=== PATIENT | male | born 1945 | race Caucasian/White ===

== ENCOUNTER 2020-08-10 14:15 | Inpatient (IN) | payer OTHER ==
[2020-08-10] MEDS ORDERED: ACETAMINOPHEN INJECTION 100 ML IVPB ONE (14:24)
[2020-08-10] MEDS ORDERED: RAPID SEQUENCE INTUBATION KIT NR ONE (14:32)
[2020-08-10] MEDS ORDERED: ACETAMINOPHEN 1000 MG/100 ML VIAL (NON FORMULARY) IVPB ONE (14:36)
[2020-08-10] MEDS ORDERED: MIDAZOLAM IN 0.9 % SOD.CHLORID 1 MG/1 ML PLAST..BAG ONE (14:40)
[2020-08-10] MEDS ORDERED: ETOMIDATE 40 MG/20 ML VIAL IVPUSH ONE (14:50)
[2020-08-10] MEDS ORDERED: SUCCINYLCHOLINE CHLORIDE 200 MG/10 ML VIAL IVPUSH ONE (14:50)
[2020-08-10 14:56] LABS: BASO % 0.1 % (0-2.0); HEMATOCRIT 42.5 % (35.4-49); HEMOGLOBIN 13.6 GM/dL (11.7-16.9); LYMPH % 7.3 % (8-40); MCH 30.8 pg (25.7-33.7); MCHC 32.1 g/dl (32.0-35.9); MEAN PLT VOLUME 9.1 fl (7.5-11.1); MONO % 5.2 % (3.8-10.2); NEUT % 87.4 % (42.8-82.8); PLATELET COUNT 271 K/MM3 (134-434); RBC 4.42 M/mm3 (4.00-5.60); RDW 15.3 % (11.9-15.9)
[2020-08-10] MEDS ORDERED: ROCURONIUM BROMIDE 50 MG/5 ML VIAL IV ONE (14:57)
[2020-08-10 15:00] LABS: INR 1.37 (0.83-1.09); PROTHROMBIN TIME (PATIENT) 16.2 SEC (9.7-13.0)
[2020-08-10 15:02] LABS: ACTIVATED PTT 32.3 SECONDS (25.2-36.5)
[2020-08-10] MEDS ORDERED: FENTANYL NS IVPB 500 MCG/100 ML BAG IVPB SCH (15:15)
[2020-08-10] MEDS: NOREPINEPHRINE BITARTRATE 8,000 MCG/500 ML BAG IVPB SCH (15:25)
[2020-08-10 15:26] LABS: ANISOCYTOSIS 0; MACROCYTOSIS 0; PLATELET ESTIMATE NORMAL
[2020-08-10 15:29] LABS: ALBUMIN 3.1 g/dl (3.4-5.0); BILIRUBIN,TOTAL 1.2 mg/dL (0.2-1); BLOOD UREA NITROGEN 27.2 mg/dL (7-18); CALCIUM 8.7 mg/dL (8.5-10.1); CREATININE 4.7 mg/dL (0.55-1.3); POTASSIUM 3.7 mmol/L (3.5-5.1); TOT PROT 6.6 g/dl (6.4-8.2)
[2020-08-10 15:50] LABS: ARTERIAL BLD GAS O2 SATURATION 98.6 mmHg (95-98); ARTERIAL BLOOD GAS BASE EXCESS -11.3 mmol/L (-2-2); ARTERIAL BLOOD GAS PO2 166.9 mmHg (80-100)
[2020-08-10 15:52] LABS: ARTERIAL BLOOD GAS pH 7.149 (7.350-7.450)
[2020-08-10 15:53] LABS: ALLENS TEST POSITIVE
[2020-08-10 15:54] LABS: VENT RATE 16
[2020-08-10] MEDS ORDERED: FENTANYL NS IVPB 500 MCG/100 ML BAG IVPB ONE (15:57)
[2020-08-10] MEDS: FENTANYL IVPB 500 MCG/100 ML BAG IVPB SCH (16:00)
[2020-08-10] MEDS ORDERED: SODIUM CHLORIDE 1,000 ML IV STA ×3 (16:14)
[2020-08-10] MEDS ORDERED: PIPERACILLIN/TAZOB 3.375 GM 3.375 GM in DEXTROSE 5%-WATER - 50 ML IVPB ONE (16:15)
[2020-08-10] MEDS ORDERED: VANCOMYCIN 1,000 MG in DEXTROSE 5%-WATER - 250 ML IVPB ONE (16:15)
[2020-08-10] MEDS ORDERED: PIPERACILLIN/TAZOB 3.375 GM 3.375 GM/50 ML BAG IVPB ONE (16:30)
[2020-08-10] MEDS ORDERED: MIDAZOLAM 100 MG in SODIUM CHLORIDE 100 ML IVPB SCH (16:30)
[2020-08-10] MEDS ORDERED: DEXAMETHASONE SOD PHOSPHATE 10 MG/1 ML VIAL IVPUSH ONE (16:39)
[2020-08-10] MEDS ORDERED: DEXAMETHASONE SOD PHOSPHATE 10 MG/1 ML VIAL ONE (16:45)
[2020-08-10] MEDS: VASOPRESSIN 40 UNITS in SODIUM CHLORIDE 98 ML IVPB SCH (17:33)
[2020-08-10 18:08] LABS: N-TERMINAL BNP 7904.4 pg/ml (5-125)
[2020-08-10] MEDS ORDERED: PT OWN MED DRAWER 7, Y5N ONE (20:06)
[2020-08-10] MEDS: HEPARIN NA (PORCINE) 5,000 UNITS/ML 1ML VIAL SQ SCH (21:39)
[2020-08-10] MEDS: PANTOPRAZOLE SODIUM 40 MG VIAL IVPUSH SCH (21:39)
[2020-08-10] MEDS: CHLORHEXIDINE GLUCONATE 4% CLEANSER FOR DECOLONIZATION TP SCH (21:40)
[2020-08-10] MEDS: PHENYLEPHRINE NS PREMIX 25,000 MCG/250 ML BAG CVP SCH (21:40)
[2020-08-10] MEDS: MUPIROCIN 2% TOPICAL OINTMENT FOR DECOLONIZATION NS SCH (21:42)
[2020-08-10 21:55] LABS: BASO % 0.2 % (0-2.0); HEMATOCRIT 42.7 % (35.4-49); MCH 31.9 pg (25.7-33.7); MCHC 32.8 g/dl (32.0-35.9); MEAN CELL VOLUME 97.3 fl (80-96); MEAN PLT VOLUME 9.6 fl (7.5-11.1); MONO % 4.4 % (3.8-10.2); NEUT % 92.4 % (42.8-82.8); PLATELET COUNT 250 K/MM3 (134-434); RBC 4.39 M/mm3 (4.00-5.60); RDW 15.5 % (11.9-15.9)
[2020-08-10 22:05] LABS: WHITE BLOOD COUNT 34.2 K/mm3 (4.0-10.0)
[2020-08-10 22:14] LABS: ARTERIAL BLD GAS O2 SATURATION 98.5 mmHg (95-98); ARTERIAL BLOOD GAS BASE EXCESS -11.9 mmol/L (-2-2); ARTERIAL BLOOD GAS PO2 151.1 mmHg (80-100)
[2020-08-10 22:19] LABS: VENT MODE A/C; VENT RATE 16
[2020-08-10 22:20] LABS: ARTERIAL BLOOD GAS pH 7.192 (7.350-7.450)
[2020-08-10 22:28] LABS: ALBUMIN 2.9 g/dl (3.4-5.0); BILIRUBIN,TOTAL 1.4 mg/dL (0.2-1); BLOOD UREA NITROGEN 31.6 mg/dL (7-18); CALCIUM 7.9 mg/dL (8.5-10.1); CREATININE 5.1 mg/dL (0.55-1.3); MAGNESIUM 1.4 mg/dL (1.8-2.4); PHOSPHOROUS 5.6 mg/dL (2.5-4.9); POTASSIUM 4.6 mmol/L (3.5-5.1); TOT PROT 6.2 g/dl (6.4-8.2)
[2020-08-11] MEDS ORDERED: PHENYLEPHRINE HCL 10 MG/1 ML SINGLE DOSE VIAL ONE (00:10)
[2020-08-11] MEDS ORDERED: fentaNYL CITRATE 250 MCG/5 ML VIAL ONE (00:10)
[2020-08-11] MEDS ORDERED: VASOPRESSIN 20 UNITS/ML VIAL IV ONE (00:10)
[2020-08-11 00:22] LABS: PLATELET ESTIMATE NORMAL
[2020-08-11] MEDS: MIDAZOLAM IN 0.9 % SOD.CHLORID 100 MG/100 ML PLAST..BAG IVPB SCH ×2 (00:43→23:25)
[2020-08-11] MEDS ORDERED: DEXTROSE 5%-WATER - 50 ML IVPB ONE ×3 (02:28→13:07)
[2020-08-11] MEDS ORDERED: PIPERACILLIN/TAZOBACTAM 2.25 GM VIAL IVPB ONE ×3 (02:28→13:07)
[2020-08-11] MEDS: HYDROCORTISONE SOD SUCCINATE 100 MG/2 ML VIAL IVPB SCH ×3 (02:54→18:05)
[2020-08-11] MEDS: PIPERACILLIN/TAZOB 2.25 GM 2.25 GM in DEXTROSE 5%-WATER - 50 ML IVPB SCH ×5 (02:54→15:05)
[2020-08-11 03:42] LABS: EPI CELLS 18 /uL (0-25.1); HYALINE CASTS 17 /uL (0-3.1); URINE APPEARANCE TURBID; URINE BILIRUBIN 1+ (NEGATIVE); URINE COLOR DK YELLOW; URINE GLUCOSE (UA) NEGATIVE (NEGATIVE); URINE KETONE TRACE (NEGATIVE); URINE LEUK ESTERASE 2+ (NEGATIVE); URINE NITRITE NEGATIVE (NEGATIVE); URINE PROTEIN 3+ (NEGATIVE); URINE RBC 220 /uL (0-23.9); URINE WBC 2622 /uL (0-25.8)
[2020-08-11 04:41] LABS: ALLENS TEST POSITIVE
[2020-08-11 04:42] LABS: VENT MODE A/C; VENT RATE 18
[2020-08-11 04:43] LABS: ARTERIAL BLOOD GAS PO2 119.6 mmHg (80-100)
[2020-08-11 04:52] LABS: URINE BACTERIA 79.3 /uL (0-1359)
[2020-08-11] MEDS: HEPARIN NA (PORCINE) 5,000 UNITS/ML 1ML VIAL SQ SCH ×3 (05:41→21:25)
[2020-08-11 07:38] LABS: BASO % 0.1 % (0-2.0); HEMATOCRIT 40.8 % (35.4-49); HEMOGLOBIN 13.1 GM/dL (11.7-16.9); LYMPH % 3.5 % (8-40); MCH 31.1 pg (25.7-33.7); MEAN CELL VOLUME 97.2 fl (80-96); MEAN PLT VOLUME 9.5 fl (7.5-11.1); MONO % 3.1 % (3.8-10.2); NEUT % 93.3 % (42.8-82.8); PLATELET COUNT 246 K/MM3 (134-434); RDW 15.6 % (11.9-15.9)
[2020-08-11 07:43] LABS: INR 1.74 (0.83-1.09); PROTHROMBIN TIME (PATIENT) 20.7 SEC (9.7-13.0)
[2020-08-11 07:45] LABS: ACTIVATED PTT 35.4 SECONDS (25.2-36.5)
[2020-08-11 07:58] LABS: ALBUMIN 2.6 g/dl (3.4-5.0); BLOOD UREA NITROGEN 39.6 mg/dL (7-18); CALCIUM 7.2 mg/dL (8.5-10.1); MAGNESIUM 1.5 mg/dL (1.8-2.4)
[2020-08-11 08:00] LABS: BILIRUBIN,TOTAL 1.1 mg/dL (0.2-1); CREATININE 5.5 mg/dL (0.55-1.3); PHOSPHOROUS 7.6 mg/dL (2.5-4.9)
[2020-08-11] MEDS: CHLORHEXIDINE GLUCONATE 0.12% 15ML CUP MM SCH ×2 (09:09→21:27)
[2020-08-11] MEDS: PANTOPRAZOLE SODIUM 40 MG VIAL IVPUSH SCH ×2 (09:09→12:06)
[2020-08-11] MEDS ORDERED: PT OWN MED DRAWER 7, Y5N ONE (10:00)
[2020-08-11] MEDS ORDERED: MAGNESIUM SULF 50% (8.12 MEQ/2 ML-1 GM VIAL) ONE (10:16)
[2020-08-11 10:59] LABS: ANISOCYTOSIS 1+; MACROCYTOSIS 0; PLATELET ESTIMATE NORMAL
[2020-08-11] MEDS: ACETAMINOPHEN 1000 MG/100 ML VIAL (NON FORMULARY) IVPB PRN ×2 (11:36→23:19)
[2020-08-11] MEDS: MUPIROCIN 2% TOPICAL OINTMENT FOR DECOLONIZATION NS SCH ×2 (11:45→21:28)
[2020-08-11] MEDS ORDERED: SODIUM BICARBONATE 8.4% 50 MEQ/50 ML DISP.SYRIN IVPUSH ONE (12:09)
[2020-08-11] MEDS ORDERED: SODIUM CHLORIDE 0.45% 1,000 ML with SODIUM BICARBONATE 8.4% - 150 MEQ IV SCH (12:15)
[2020-08-11] MEDS ORDERED: MAGNESIUM SULF 50% (8.12 MEQ/2 ML-1 GM VIAL) IVPB ONE (13:31)
[2020-08-11] MEDS ORDERED: NOREPINEPHRINE BITARTRATE 4 MG/4 ML ML IV ONE (15:21)
[2020-08-11] MEDS: NOREPINEPHRINE BITARTRATE 8,000 MCG/500 ML BAG IVPB SCH (15:35)
[2020-08-11] MEDS: FENTANYL IVPB 500 MCG/100 ML BAG IVPB SCH (15:35)
[2020-08-11] MEDS: SODIUM BICARBONATE 8.4% - 75 MEQ in SODIUM CHLORIDE 0.45% 1,000 ML IV SCH (15:56)
[2020-08-11 16:06] LABS: WHITE BLOOD COUNT 33.4 K/mm3 (4.0-10.0)
[2020-08-11] MEDS ORDERED: MEROPENEM 1 GM VIAL (RESTRICTED TO ID) IVPB ONE (16:19)
[2020-08-11] MEDS ORDERED: DEXTROSE 5%-WATER 100 ML IVPB ONE (16:19)
[2020-08-11] MEDS: MEROPENEM 1 GM in DEXTROSE 5%-WATER 100 ML IVPB SCH (16:31)
[2020-08-11] MEDS: VASOPRESSIN 40 UNITS in SODIUM CHLORIDE 98 ML IVPB SCH (18:05)
[2020-08-11] MEDS: PHENYLEPHRINE NS PREMIX 25,000 MCG/250 ML BAG CVP SCH (20:25)
[2020-08-11 21:21] LABS: ARTERIAL BLD GAS O2 SATURATION 98.5 mmHg (95-98); ARTERIAL BLOOD GAS BASE EXCESS -10.4 mmol/L (-2-2); ARTERIAL BLOOD GAS PO2 147.9 mmHg (80-100); ARTERIAL BLOOD GAS pH 7.212 (7.350-7.450)
[2020-08-11 21:23] LABS: ALLENS TEST POSITIVE
[2020-08-11 21:24] LABS: VENT MODE A/C; VENT RATE 20
[2020-08-11] MEDS: CHLORHEXIDINE GLUCONATE 4% CLEANSER FOR DECOLONIZATION TP SCH (21:28)
[2020-08-12] MEDS ORDERED: FENTANYL IVPB 500 MCG/100 ML BAG IVPB ONE ×2 (01:11→15:59)
[2020-08-12] MEDS: NOREPINEPHRINE BITARTRATE 8,000 MCG/500 ML BAG IVPB SCH ×2 (01:21→16:07)
[2020-08-12] MEDS: FENTANYL IVPB 500 MCG/100 ML BAG IVPB SCH ×4 (01:21→22:39)
[2020-08-12] MEDS: PIPERACILLIN/TAZOB 2.25 GM 2.25 GM in DEXTROSE 5%-WATER - 50 ML IVPB SCH (01:23)
[2020-08-12] MEDS ORDERED: DEXTROSE 5%-WATER 100 ML IVPB ONE ×2 (01:43→16:08)
[2020-08-12] MEDS ORDERED: MEROPENEM 1 GM VIAL (RESTRICTED TO ID) IVPB ONE ×2 (01:43→16:08)
[2020-08-12] MEDS: HYDROCORTISONE SOD SUCCINATE 100 MG/2 ML VIAL IVPB SCH ×4 (01:49→22:38)
[2020-08-12] MEDS: MEROPENEM 1 GM in DEXTROSE 5%-WATER 100 ML IVPB SCH ×2 (03:14→16:08)
[2020-08-12] MEDS: SODIUM BICARBONATE 8.4% - 75 MEQ in SODIUM CHLORIDE 0.45% 1,000 ML IV SCH (03:15)
[2020-08-12] MEDS: HEPARIN NA (PORCINE) 5,000 UNITS/ML 1ML VIAL SQ SCH ×3 (06:41→22:38)
[2020-08-12 07:10] LABS: HEMATOCRIT 35.7 % (35.4-49); HEMOGLOBIN 11.6 GM/dL (11.7-16.9); MCH 31.2 pg (25.7-33.7); MCHC 32.4 g/dl (32.0-35.9); MEAN CELL VOLUME 96.1 fl (80-96); MEAN PLT VOLUME 9.5 fl (7.5-11.1); PLATELET COUNT 165 K/MM3 (134-434); RBC 3.71 M/mm3 (4.00-5.60); RDW 15.6 % (11.9-15.9); WHITE BLOOD COUNT 18.6 K/mm3 (4.0-10.0)
[2020-08-12 07:17] LABS: ALBUMIN 2.2 g/dl (3.4-5.0); BILIRUBIN,TOTAL 0.6 mg/dL (0.2-1); BLOOD UREA NITROGEN 59.7 mg/dL (7-18); CREATININE 6.2 mg/dL (0.55-1.3); MAGNESIUM 2.3 mg/dL (1.8-2.4); PHOSPHOROUS 8.1 mg/dL (2.5-4.9); POTASSIUM 5.1 mmol/L (3.5-5.1); TOT PROT 5.5 g/dl (6.4-8.2)
[2020-08-12 07:36] LABS: ARTERIAL BLD GAS O2 SATURATION 98.4 mmHg (95-98); ARTERIAL BLOOD GAS BASE EXCESS -9.3 mmol/L (-2-2); ARTERIAL BLOOD GAS PO2 137.8 mmHg (80-100); ARTERIAL BLOOD GAS pH 7.269 (7.350-7.450)
[2020-08-12 07:38] LABS: ALLENS TEST POSITIVE
[2020-08-12 07:39] LABS: VENT MODE A/C; VENT RATE 12
[2020-08-12] MEDS: VASOPRESSIN 40 UNITS in SODIUM CHLORIDE 98 ML IVPB SCH ×2 (07:40→17:42)
[2020-08-12 07:47] LABS: CALCIUM 6.1 mg/dL (8.5-10.1)
[2020-08-12 09:15] LABS: INR 1.28 (0.83-1.09); PROTHROMBIN TIME (PATIENT) 15.2 SEC (9.7-13.0)
[2020-08-12] MEDS: SEVELAMER CARBONATE 800 MG TAB (FP) PO SCH ×3 (09:17→17:42)
[2020-08-12 09:18] LABS: ACTIVATED PTT 36.4 SECONDS (25.2-36.5)
[2020-08-12] MEDS: CHLORHEXIDINE GLUCONATE 0.12% 15ML CUP MM SCH ×2 (09:23→22:38)
[2020-08-12] MEDS: MIDAZOLAM IN 0.9 % SOD.CHLORID 100 MG/100 ML PLAST..BAG IVPB SCH ×3 (09:24→22:39)
[2020-08-12] MEDS ORDERED: PIPERACILLIN/TAZOB 2.25 GM 2.25 GM in DEXTROSE 5%-WATER - 50 ML IVPB SCH (10:00)
[2020-08-12] MEDS: MUPIROCIN 2% TOPICAL OINTMENT FOR DECOLONIZATION NS SCH ×2 (10:43→22:38)
[2020-08-12] MEDS ORDERED: HYDROCORTISONE SOD SUCCINATE 100 MG/2 ML VIAL IVPB SCH (12:19)
[2020-08-12] MEDS: PANTOPRAZOLE SODIUM 40 MG VIAL IVPUSH SCH (13:05)
[2020-08-12] MEDS: SODIUM ZIRCONIUM CYCLOSILICATE (LOKELMA) 5 GM PACKET PO SCH (14:07)
[2020-08-12 15:20] LABS: BLOOD UREA NITROGEN 64.6 mg/dL (7-18); CREATININE 6.2 mg/dL (0.55-1.3); POTASSIUM 4.8 mmol/L (3.5-5.1)
[2020-08-12 15:23] LABS: CALCIUM 5.9 mg/dL (8.5-10.1)
[2020-08-12] MEDS ORDERED: CALCIUM GLUCONATE 10% - 1,000 MG/10 ML VIAL IVPB ONE (15:28)
[2020-08-12] MEDS ORDERED: NOREPINEPHRINE BITARTRATE 8,000 MCG/500 ML BAG IVPB ONE (16:00)
[2020-08-12] MEDS: SODIUM CHLORIDE 1,000 ML IV SCH (16:07)
[2020-08-12] MEDS: PHENYLEPHRINE NS PREMIX 25,000 MCG/250 ML BAG CVP SCH (22:09)
[2020-08-12] MEDS: CHLORHEXIDINE GLUCONATE 4% CLEANSER FOR DECOLONIZATION TP SCH (22:38)
[2020-08-13] MEDS ORDERED: DEXTROSE 5%-WATER 100 ML IVPB ONE ×2 (01:25→11:52)
[2020-08-13] MEDS ORDERED: MEROPENEM 1 GM VIAL (RESTRICTED TO ID) IVPB ONE (01:25)
[2020-08-13] MEDS: HYDROCORTISONE SOD SUCCINATE 100 MG/2 ML VIAL IVPB SCH ×4 (02:09→21:09)
[2020-08-13] MEDS: MEROPENEM 1 GM in DEXTROSE 5%-WATER 100 ML IVPB SCH (03:50)
[2020-08-13] MEDS ORDERED: METOCLOPRAMIDE HCL INJECTION 10 MG/2 ML VIAL IVPUSH ONE (03:57)
[2020-08-13 05:35] LABS: ARTERIAL BLD GAS O2 SATURATION 97.4 mmHg (95-98); ARTERIAL BLOOD GAS BASE EXCESS -6.9 mmol/L (-2-2); ARTERIAL BLOOD GAS pH 7.276 (7.350-7.450)
[2020-08-13 05:38] LABS: ALLENS TEST POSITIVE
[2020-08-13 05:39] LABS: VENT MODE A/C; VENT RATE 20
[2020-08-13] MEDS: HEPARIN NA (PORCINE) 5,000 UNITS/ML 1ML VIAL SQ SCH ×3 (05:55→21:09)
[2020-08-13] MEDS: MIDAZOLAM IN 0.9 % SOD.CHLORID 100 MG/100 ML PLAST..BAG IVPB SCH ×2 (06:00→23:45)
[2020-08-13 07:03] LABS: HEMATOCRIT 33.1 % (35.4-49); HEMOGLOBIN 10.7 GM/dL (11.7-16.9); MCH 31.1 pg (25.7-33.7); MCHC 32.2 g/dl (32.0-35.9); MEAN CELL VOLUME 96.5 fl (80-96); MEAN PLT VOLUME 9.9 fl (7.5-11.1); PLATELET COUNT 124 K/MM3 (134-434); RBC 3.43 M/mm3 (4.00-5.60); RDW 14.8 % (11.9-15.9); WHITE BLOOD COUNT 12.4 K/mm3 (4.0-10.0)
[2020-08-13 07:39] LABS: ALBUMIN 2.1 g/dl (3.4-5.0); BILIRUBIN,TOTAL 0.5 mg/dL (0.2-1); BLOOD UREA NITROGEN 71.7 mg/dL (7-18); MAGNESIUM 2.2 mg/dL (1.8-2.4); PHOSPHOROUS 7.1 mg/dL (2.5-4.9); POTASSIUM 4.6 mmol/L (3.5-5.1); TOT PROT 5.4 g/dl (6.4-8.2)
[2020-08-13 08:25] LABS: CALCIUM 6.3 mg/dL (8.5-10.1)
[2020-08-13] MEDS: SEVELAMER CARBONATE 800 MG TAB (FP) PO SCH ×3 (09:00→17:06)
[2020-08-13] MEDS: CHLORHEXIDINE GLUCONATE 0.12% 15ML CUP MM SCH ×2 (10:47→21:09)
[2020-08-13] MEDS: PANTOPRAZOLE SODIUM 40 MG VIAL IVPUSH SCH (10:47)
[2020-08-13] MEDS: MUPIROCIN 2% TOPICAL OINTMENT FOR DECOLONIZATION NS SCH ×2 (10:47→21:10)
[2020-08-13] MEDS: SODIUM ZIRCONIUM CYCLOSILICATE (LOKELMA) 5 GM PACKET PO SCH (10:47)
[2020-08-13] MEDS: FLUDROCORTISONE ACETATE 0.1 MG TABLET (FP) PO SCH (10:47)
[2020-08-13] MEDS: CEFTRIAXONE 2 GM in DEXTROSE 5%-WATER 100 ML IVPB SCH (11:57)
[2020-08-13] MEDS ORDERED: SEVELAMER CARBONATE 800 MG TAB (FP) PO SCH (12:00)
[2020-08-13] MEDS: FENTANYL IVPB 500 MCG/100 ML BAG IVPB SCH (15:35)
[2020-08-13] MEDS ORDERED: CALCIUM GLUCONATE 10% - 1,000 MG/10 ML VIAL IVPUSH ONE (17:04)
[2020-08-13] MEDS: SODIUM CHLORIDE 1,000 ML IV SCH (17:05)
[2020-08-13] MEDS: VASOPRESSIN 40 UNITS in SODIUM CHLORIDE 98 ML IVPB SCH (17:05)
[2020-08-13] MEDS: CHLORHEXIDINE GLUCONATE 4% CLEANSER FOR DECOLONIZATION TP SCH (21:10)
[2020-08-14] MEDS: NOREPINEPHRINE BITARTRATE 8,000 MCG/500 ML BAG IVPB SCH ×2 (00:26→17:10)
[2020-08-14] MEDS: HYDROCORTISONE SOD SUCCINATE 100 MG/2 ML VIAL IVPB SCH ×4 (03:35→21:46)
[2020-08-14] MEDS: HEPARIN NA (PORCINE) 5,000 UNITS/ML 1ML VIAL SQ SCH ×3 (05:25→21:46)
[2020-08-14 07:02] LABS: ARTERIAL BLD GAS O2 SATURATION 97.1 mmHg (95-98); ARTERIAL BLOOD GAS BASE EXCESS -6.5 mmol/L (-2-2); ARTERIAL BLOOD GAS PO2 100.3 mmHg (80-100); ARTERIAL BLOOD GAS pH 7.309 (7.350-7.450)
[2020-08-14 07:08] LABS: ALLENS TEST POSITIVE
[2020-08-14 07:09] LABS: VENT MODE A/C; VENT RATE 20
[2020-08-14 08:03] LABS: ALBUMIN 2.2 g/dl (3.4-5.0); BILIRUBIN,TOTAL 0.9 mg/dL (0.2-1); CREATININE 5.4 mg/dL (0.55-1.3); MAGNESIUM 2.5 mg/dL (1.8-2.4); PHOSPHOROUS 5.4 mg/dL (2.5-4.9); POTASSIUM 4.1 mmol/L (3.5-5.1); TOT PROT 5.7 g/dl (6.4-8.2)
[2020-08-14 08:11] LABS: CALCIUM 6.9 mg/dL (8.5-10.1)
[2020-08-14 08:22] LABS: HEMATOCRIT 32.2 % (35.4-49); HEMOGLOBIN 10.6 GM/dL (11.7-16.9); MCH 31.7 pg (25.7-33.7); MEAN PLT VOLUME 10.7 fl (7.5-11.1); PLATELET COUNT 128 K/MM3 (134-434); RBC 3.35 M/mm3 (4.00-5.60); RDW 14.7 % (11.9-15.9); WHITE BLOOD COUNT 13.6 K/mm3 (4.0-10.0)
[2020-08-14] MEDS ORDERED: DEXTROSE 5%-WATER 100 ML IVPB ONE (09:19)
[2020-08-14] MEDS: FLUDROCORTISONE ACETATE 0.1 MG TABLET (FP) PO SCH (09:25)
[2020-08-14] MEDS: CHLORHEXIDINE GLUCONATE 0.12% 15ML CUP MM SCH ×2 (09:25→21:47)
[2020-08-14] MEDS: PANTOPRAZOLE SODIUM 40 MG VIAL IVPUSH SCH (09:26)
[2020-08-14] MEDS: CEFTRIAXONE 2 GM in DEXTROSE 5%-WATER 100 ML IVPB SCH (09:26)
[2020-08-14] MEDS: MUPIROCIN 2% TOPICAL OINTMENT FOR DECOLONIZATION NS SCH ×2 (09:26→21:47)
[2020-08-14] MEDS ORDERED: PT OWN MED DRAWER 7, Y5N ONE (13:07)
[2020-08-14] MEDS: CALCIUM CARBONATE SUSPENSION - 500 MG/5 ML ML NGT SCH ×2 (13:10→21:46)
[2020-08-14] MEDS: FENTANYL IVPB 500 MCG/100 ML BAG IVPB SCH ×2 (13:11→17:23)
[2020-08-14] MEDS: SODIUM CHLORIDE 1,000 ML IV SCH (17:10)
[2020-08-14] MEDS: VASOPRESSIN 40 UNITS in SODIUM CHLORIDE 98 ML IVPB SCH (17:10)
[2020-08-14] MEDS: CHLORHEXIDINE GLUCONATE 4% CLEANSER FOR DECOLONIZATION TP SCH (21:30)
[2020-08-15] MEDS: MIDAZOLAM IN 0.9 % SOD.CHLORID 100 MG/100 ML PLAST..BAG IVPB SCH (01:13)
[2020-08-15] MEDS: FENTANYL IVPB 500 MCG/100 ML BAG IVPB SCH ×2 (01:26→08:48)
[2020-08-15] MEDS: HYDROCORTISONE SOD SUCCINATE 100 MG/2 ML VIAL IVPB SCH ×4 (02:00→21:30)
[2020-08-15 05:07] LABS: ARTERIAL BLD GAS O2 SATURATION 97.5 mmHg (95-98); ARTERIAL BLOOD GAS BASE EXCESS -5.4 mmol/L (-2-2); ARTERIAL BLOOD GAS PO2 103.9 mmHg (80-100); ARTERIAL BLOOD GAS pH 7.341 (7.350-7.450)
[2020-08-15 05:08] LABS: ALLENS TEST POSITIVE
[2020-08-15] MEDS: HEPARIN NA (PORCINE) 5,000 UNITS/ML 1ML VIAL SQ SCH ×3 (05:09→21:30)
[2020-08-15 05:10] LABS: PT'S TEMP NO; VENT MODE A/C; VENT RATE 20
[2020-08-15 07:01] LABS: HEMATOCRIT 32.3 % (35.4-49); HEMOGLOBIN 10.5 GM/dL (11.7-16.9); MCHC 32.6 g/dl (32.0-35.9); MEAN CELL VOLUME 95.1 fl (80-96); PLATELET COUNT 163 K/MM3 (134-434); WHITE BLOOD COUNT 11.4 K/mm3 (4.0-10.0)
[2020-08-15 07:39] LABS: POTASSIUM 4.2 mmol/L (3.5-5.1)
[2020-08-15 07:45] LABS: ALBUMIN 2.2 g/dl (3.4-5.0); BILIRUBIN,TOTAL 0.3 mg/dL (0.2-1); BLOOD UREA NITROGEN 94.7 mg/dL (7-18); CALCIUM 7.9 mg/dL (8.5-10.1); CREATININE 4.8 mg/dL (0.55-1.3); MAGNESIUM 2.9 mg/dL (1.8-2.4); PHOSPHOROUS 4.6 mg/dL (2.5-4.9); TOT PROT 5.6 g/dl (6.4-8.2)
[2020-08-15] MEDS ORDERED: DEXTROSE 5%-WATER 100 ML IVPB ONE (08:40)
[2020-08-15] MEDS ORDERED: PT OWN MED DRAWER 7, Y5N ONE ×2 (08:41→21:24)
[2020-08-15] MEDS: NOREPINEPHRINE BITARTRATE 8,000 MCG/500 ML BAG IVPB SCH ×2 (08:49→15:08)
[2020-08-15] MEDS: CHLORHEXIDINE GLUCONATE 0.12% 15ML CUP MM SCH ×2 (09:11→21:30)
[2020-08-15] MEDS: CALCIUM CARBONATE SUSPENSION - 500 MG/5 ML ML NGT SCH ×2 (09:12→21:31)
[2020-08-15] MEDS: CEFTRIAXONE 2 GM in DEXTROSE 5%-WATER 100 ML IVPB SCH (09:12)
[2020-08-15] MEDS: PANTOPRAZOLE SODIUM 40 MG VIAL IVPUSH SCH (09:12)
[2020-08-15] MEDS: MUPIROCIN 2% TOPICAL OINTMENT FOR DECOLONIZATION NS SCH (09:12)
[2020-08-15] MEDS: FLUDROCORTISONE ACETATE 0.1 MG TABLET (FP) PO SCH (09:12)
[2020-08-15] MEDS: AMINO ACIDS/PROTEIN HYDROLYS 30 ML LIQUID.PKT PO SCH (17:00)
[2020-08-15] MEDS: ACETAMINOPHEN 1000 MG/100 ML VIAL (NON FORMULARY) IVPB PRN (18:37)
[2020-08-15] MEDS: CHLORHEXIDINE GLUCONATE 4% CLEANSER FOR DECOLONIZATION TP SCH (21:32)
[2020-08-15 22:04] LABS: CREATININE 4.4 mg/dL (0.55-1.3); MAGNESIUM 2.8 mg/dL (1.8-2.4); PHOSPHOROUS 4.4 mg/dL (2.5-4.9); POTASSIUM 3.9 mmol/L (3.5-5.1)
[2020-08-15 22:08] LABS: BLOOD UREA NITROGEN 101.2 mg/dL (7-18)
[2020-08-15 22:11] LABS: CALCIUM 5.9 mg/dL (8.5-10.1)
[2020-08-16 01:04] LABS: ALBUMIN 2.2 g/dl (3.4-5.0); BLOOD UREA NITROGEN 101.1 mg/dL (7-18); CALCIUM 8.3 mg/dL (8.5-10.1); CREATININE 4.4 mg/dL (0.55-1.3)
[2020-08-16] MEDS: HYDROCORTISONE SOD SUCCINATE 100 MG/2 ML VIAL IVPB SCH ×4 (03:30→17:49)
[2020-08-16] MEDS: HEPARIN NA (PORCINE) 5,000 UNITS/ML 1ML VIAL SQ SCH ×3 (06:41→21:30)
[2020-08-16 07:42] LABS: BASO % 0.1 % (0-2.0); EOS % 1.7 % (0-4.5); HEMATOCRIT 34.6 % (35.4-49); HEMOGLOBIN 11.5 GM/dL (11.7-16.9); LYMPH % 6.3 % (8-40); MCH 31.7 pg (25.7-33.7); MCHC 33.3 g/dl (32.0-35.9); MEAN CELL VOLUME 95.4 fl (80-96); MEAN PLT VOLUME 9.7 fl (7.5-11.1); MONO % 7.4 % (3.8-10.2); NEUT % 84.5 % (42.8-82.8); PLATELET COUNT 193 K/MM3 (134-434); RBC 3.63 M/mm3 (4.00-5.60); WHITE BLOOD COUNT 10.4 K/mm3 (4.0-10.0)
[2020-08-16] MEDS ORDERED: DEXTROSE 5%-WATER 100 ML IVPB ONE (07:55)
[2020-08-16 08:15] LABS: ALBUMIN 2.2 g/dl (3.4-5.0); BILIRUBIN,TOTAL 0.3 mg/dL (0.2-1); BLOOD UREA NITROGEN 103.9 mg/dL (7-18); MAGNESIUM 2.7 mg/dL (1.8-2.4); PHOSPHOROUS 4.8 mg/dL (2.5-4.9); POTASSIUM 3.9 mmol/L (3.5-5.1); TOT PROT 5.7 g/dl (6.4-8.2)
[2020-08-16] MEDS: AMINO ACIDS/PROTEIN HYDROLYS 30 ML LIQUID.PKT PO SCH (08:20)
[2020-08-16 08:30] LABS: CALCIUM 8.6 mg/dL (8.5-10.1)
[2020-08-16 08:55] LABS: ANISOCYTOSIS 0; MACROCYTOSIS 0; PLATELET ESTIMATE NORMAL
[2020-08-16] MEDS: CEFTRIAXONE 2 GM in DEXTROSE 5%-WATER 100 ML IVPB SCH (09:00)
[2020-08-16] MEDS: CHLORHEXIDINE GLUCONATE 0.12% 15ML CUP MM SCH ×2 (09:01→21:30)
[2020-08-16] MEDS: FLUDROCORTISONE ACETATE 0.1 MG TABLET (FP) PO SCH (09:01)
[2020-08-16] MEDS: CALCIUM CARBONATE SUSPENSION - 500 MG/5 ML ML NGT SCH ×2 (09:01→21:32)
[2020-08-16] MEDS: PANTOPRAZOLE SODIUM 40 MG VIAL IVPUSH SCH (09:01)
[2020-08-16] MEDS: NOREPINEPHRINE BITARTRATE 8,000 MCG/500 ML BAG IVPB SCH (15:17)
[2020-08-16] MEDS ORDERED: PROPOFOL 1,000,000 MCG/100 ML VIAL ONE ×2 (19:48→21:35)
[2020-08-16] MEDS: CHLORHEXIDINE GLUCONATE 4% CLEANSER FOR DECOLONIZATION TP SCH (21:30)
[2020-08-17] MEDS ORDERED: PROPOFOL 1,000,000 MCG/100 ML VIAL ONE (00:31)
[2020-08-17] MEDS: HYDROCORTISONE SOD SUCCINATE 100 MG/2 ML VIAL IVPB SCH ×3 (01:26→21:52)
[2020-08-17] MEDS: HEPARIN NA (PORCINE) 5,000 UNITS/ML 1ML VIAL SQ SCH ×3 (06:55→21:47)
[2020-08-17 07:47] LABS: HEMATOCRIT 37.1 % (35.4-49); MCH 31.1 pg (25.7-33.7); MCHC 32.4 g/dl (32.0-35.9); MEAN CELL VOLUME 96.1 fl (80-96); MEAN PLT VOLUME 9.3 fl (7.5-11.1); PLATELET COUNT 223 K/MM3 (134-434); RBC 3.86 M/mm3 (4.00-5.60); RDW 15.3 % (11.9-15.9); WHITE BLOOD COUNT 10.3 K/mm3 (4.0-10.0)
[2020-08-17] MEDS ORDERED: PT OWN MED DRAWER 7, Y5N ONE (08:07)
[2020-08-17] MEDS ORDERED: DEXTROSE 5%-WATER 100 ML IVPB ONE (08:08)
[2020-08-17] MEDS: AMINO ACIDS/PROTEIN HYDROLYS 30 ML LIQUID.PKT PO SCH (08:10)
[2020-08-17 08:16] LABS: ALBUMIN 2.2 g/dl (3.4-5.0); BILIRUBIN,TOTAL 0.3 mg/dL (0.2-1); BLOOD UREA NITROGEN 100.5 mg/dL (7-18); CALCIUM 8.5 mg/dL (8.5-10.1); CREATININE 3.3 mg/dL (0.55-1.3); MAGNESIUM 2.6 mg/dL (1.8-2.4); PHOSPHOROUS 3.3 mg/dL (2.5-4.9); POTASSIUM 3.8 mmol/L (3.5-5.1); TOT PROT 5.6 g/dl (6.4-8.2)
[2020-08-17] MEDS: FLUDROCORTISONE ACETATE 0.1 MG TABLET (FP) PO SCH (09:24)
[2020-08-17] MEDS: PANTOPRAZOLE SODIUM 40 MG VIAL IVPUSH SCH (09:24)
[2020-08-17] MEDS: CEFTRIAXONE 2 GM in DEXTROSE 5%-WATER 100 ML IVPB SCH (09:25)
[2020-08-17] MEDS: CHLORHEXIDINE GLUCONATE 0.12% 15ML CUP MM SCH ×2 (09:25→21:47)
[2020-08-17] MEDS: CALCIUM CARBONATE SUSPENSION - 500 MG/5 ML ML NGT SCH ×2 (09:25→21:48)
[2020-08-17] MEDS: PROPOFOL 1,000,000 MCG/100 ML VIAL IVPB SCH ×2 (10:00→21:51)
[2020-08-17 11:17] LABS: ARTERIAL BLD GAS O2 SATURATION 97.3 mmHg (95-98); ARTERIAL BLOOD GAS BASE EXCESS -0.4 mmol/L (-2-2); ARTERIAL BLOOD GAS PO2 97.4 mmHg (80-100); ARTERIAL BLOOD GAS pH 7.381 (7.350-7.450)
[2020-08-17 11:19] LABS: ALLENS TEST POSITIVE
[2020-08-17 11:20] LABS: VENT MODE AC; VENT RATE 16
[2020-08-17] MEDS: DEXMEDETOMIDINE HCL 200 MCG in SODIUM CHLORIDE 48 ML IVPB SCH (12:17)
[2020-08-17] MEDS: SODIUM CHLORIDE 0.45% 1,000 ML IV SCH (14:05)
[2020-08-17 18:41] LABS: BILIRUBIN,TOTAL 0.2 mg/dL (0.2-1); BLOOD UREA NITROGEN 103.7 mg/dL (7-18); CALCIUM 8.4 mg/dL (8.5-10.1); CREATININE 3.1 mg/dL (0.55-1.3); POTASSIUM 3.6 mmol/L (3.5-5.1)
[2020-08-17] MEDS: NOREPINEPHRINE BITARTRATE 8,000 MCG/500 ML BAG IVPB SCH (21:00)
[2020-08-17] MEDS: CHLORHEXIDINE GLUCONATE 4% CLEANSER FOR DECOLONIZATION TP SCH (21:48)
[2020-08-18 05:43] LABS: ARTERIAL BLD GAS O2 SATURATION 98.4 mmHg (95-98); ARTERIAL BLOOD GAS BASE EXCESS -0.5 mmol/L (-2-2); ARTERIAL BLOOD GAS pH 7.331 (7.350-7.450)
[2020-08-18] MEDS: HEPARIN NA (PORCINE) 5,000 UNITS/ML 1ML VIAL SQ SCH ×3 (05:43→21:29)
[2020-08-18 05:44] LABS: ALLENS TEST POSITIVE; VENT MODE A/C; VENT RATE 16
[2020-08-18 07:54] LABS: HEMATOCRIT 35.8 % (35.4-49); HEMOGLOBIN 11.6 GM/dL (11.7-16.9); MCH 31.5 pg (25.7-33.7); MCHC 32.5 g/dl (32.0-35.9); MEAN PLT VOLUME 9.2 fl (7.5-11.1); PLATELET COUNT 185 K/MM3 (134-434); RBC 3.69 M/mm3 (4.00-5.60); RDW 15.3 % (11.9-15.9); WHITE BLOOD COUNT 10.4 K/mm3 (4.0-10.0)
[2020-08-18] MEDS: AMINO ACIDS/PROTEIN HYDROLYS 30 ML LIQUID.PKT PO SCH (08:28)
[2020-08-18 08:40] LABS: POTASSIUM 3.6 mmol/L (3.5-5.1)
[2020-08-18 08:51] LABS: BILIRUBIN,TOTAL 0.2 mg/dL (0.2-1); BLOOD UREA NITROGEN 88.9 mg/dL (7-18); CALCIUM 8.3 mg/dL (8.5-10.1); CREATININE 2.5 mg/dL (0.55-1.3); MAGNESIUM 2.3 mg/dL (1.8-2.4); PHOSPHOROUS 3.7 mg/dL (2.5-4.9); TOT PROT 5.1 g/dl (6.4-8.2)
[2020-08-18] MEDS: CALCIUM CARBONATE SUSPENSION - 500 MG/5 ML ML NGT SCH ×2 (08:59→21:29)
[2020-08-18] MEDS: CHLORHEXIDINE GLUCONATE 0.12% 15ML CUP MM SCH ×2 (08:59→21:29)
[2020-08-18] MEDS: PANTOPRAZOLE SODIUM 40 MG VIAL IVPUSH SCH (09:00)
[2020-08-18] MEDS: HYDROCORTISONE SOD SUCCINATE 100 MG/2 ML VIAL IVPB SCH ×3 (09:00→21:30)
[2020-08-18] MEDS ORDERED: DEXTROSE 5%-WATER 100 ML IVPB ONE (09:37)
[2020-08-18] MEDS: CEFTRIAXONE 2 GM in DEXTROSE 5%-WATER 100 ML IVPB SCH (11:00)
[2020-08-18] MEDS: DEXMEDETOMIDINE HCL 200 MCG in SODIUM CHLORIDE 48 ML IVPB SCH (15:07)
[2020-08-18] MEDS: SODIUM CHLORIDE 0.45% 1,000 ML IV SCH (15:07)
[2020-08-18] MEDS: NOREPINEPHRINE BITARTRATE 8,000 MCG/500 ML BAG IVPB SCH (15:08)
[2020-08-18] MEDS: PROPOFOL 1,000,000 MCG/100 ML VIAL IVPB SCH (21:29)
[2020-08-18] MEDS: CHLORHEXIDINE GLUCONATE 4% CLEANSER FOR DECOLONIZATION TP SCH (21:29)
[2020-08-19] MEDS: HEPARIN NA (PORCINE) 5,000 UNITS/ML 1ML VIAL SQ SCH ×3 (05:21→21:50)
[2020-08-19 07:35] LABS: HEMATOCRIT 34.4 % (35.4-49); HEMOGLOBIN 11.1 GM/dL (11.7-16.9); MCH 30.8 pg (25.7-33.7); MCHC 32.2 g/dl (32.0-35.9); MEAN CELL VOLUME 95.8 fl (80-96); MEAN PLT VOLUME 9.2 fl (7.5-11.1); PLATELET COUNT 174 K/MM3 (134-434); RBC 3.59 M/mm3 (4.00-5.60); RDW 15.2 % (11.9-15.9); WHITE BLOOD COUNT 13.5 K/mm3 (4.0-10.0)
[2020-08-19 08:03] LABS: BILIRUBIN,TOTAL 0.4 mg/dL (0.2-1); BLOOD UREA NITROGEN 74.7 mg/dL (7-18); CALCIUM 7.9 mg/dL (8.5-10.1); CREATININE 2.2 mg/dL (0.55-1.3); MAGNESIUM 1.9 mg/dL (1.8-2.4); PHOSPHOROUS 2.7 mg/dL (2.5-4.9); POTASSIUM 3.2 mmol/L (3.5-5.1); URIC ACID 8.3 mg/dL (2.6-7.2)
[2020-08-19] MEDS ORDERED: DEXTROSE 5%-WATER 100 ML IVPB ONE (08:54)
[2020-08-19] MEDS: CEFTRIAXONE 2 GM in DEXTROSE 5%-WATER 100 ML IVPB SCH (09:19)
[2020-08-19] MEDS: AMINO ACIDS/PROTEIN HYDROLYS 30 ML LIQUID.PKT PO SCH (09:19)
[2020-08-19] MEDS: HYDROCORTISONE SOD SUCCINATE 100 MG/2 ML VIAL IVPB SCH ×2 (09:20→21:50)
[2020-08-19] MEDS: PANTOPRAZOLE SODIUM 40 MG VIAL IVPUSH SCH (09:20)
[2020-08-19] MEDS: CHLORHEXIDINE GLUCONATE 0.12% 15ML CUP MM SCH ×2 (09:21→21:50)
[2020-08-19] MEDS ORDERED: PT OWN MED DRAWER 7, Y5N ONE (10:02)
[2020-08-19] MEDS: CALCIUM CARBONATE SUSPENSION - 500 MG/5 ML ML NGT SCH ×2 (10:03→21:49)
[2020-08-19] MEDS: KCL 10 MEQ IVPB 10 MEQ/100 ML INFUS.BAG IVPB SCH ×3 (10:03→13:26)
[2020-08-19] MEDS ORDERED: ONDANSETRON 4 MG/2 ML VIAL IVPUSH PRN (16:31)
[2020-08-19] MEDS: POTASSIUM CHLORIDE 20 MEQ in DEXTROSE 5%-WATER - 1,000 ML IV SCH (17:58)
[2020-08-19] MEDS: CHLORHEXIDINE GLUCONATE 4% CLEANSER FOR DECOLONIZATION TP SCH (21:50)
[2020-08-20] MEDS: HEPARIN NA (PORCINE) 5,000 UNITS/ML 1ML VIAL SQ SCH ×3 (05:08→21:33)
[2020-08-20 07:34] LABS: HEMATOCRIT 34.5 % (35.4-49); HEMOGLOBIN 11.2 GM/dL (11.7-16.9); MCHC 32.6 g/dl (32.0-35.9); MEAN CELL VOLUME 95.1 fl (80-96); MEAN PLT VOLUME 9.3 fl (7.5-11.1); PLATELET COUNT 135 K/MM3 (134-434); RBC 3.63 M/mm3 (4.00-5.60); RDW 15.5 % (11.9-15.9)
[2020-08-20 08:11] LABS: ALBUMIN 2.1 g/dl (3.4-5.0); BILIRUBIN,TOTAL 0.4 mg/dL (0.2-1); BLOOD UREA NITROGEN 58.5 mg/dL (7-18); CALCIUM 8.1 mg/dL (8.5-10.1); CREATININE 1.9 mg/dL (0.55-1.3); MAGNESIUM 1.8 mg/dL (1.8-2.4); PHOSPHOROUS 3.4 mg/dL (2.5-4.9); POTASSIUM 3.6 mmol/L (3.5-5.1)
[2020-08-20 08:12] LABS: TOT PROT 5.4 g/dl (6.4-8.2)
[2020-08-20] MEDS: AMINO ACIDS/PROTEIN HYDROLYS 30 ML LIQUID.PKT PO SCH (09:00)
[2020-08-20] MEDS ORDERED: DEXTROSE 5%-WATER 100 ML IVPB ONE (10:27)
[2020-08-20] MEDS: POTASSIUM CHLORIDE 20 MEQ in DEXTROSE 5%-WATER - 1,000 ML IV SCH ×2 (10:47→15:39)
[2020-08-20] MEDS: CEFTRIAXONE 2 GM in DEXTROSE 5%-WATER 100 ML IVPB SCH (10:48)
[2020-08-20] MEDS: CHLORHEXIDINE GLUCONATE 0.12% 15ML CUP MM SCH (10:48)
[2020-08-20] MEDS: HYDROCORTISONE SOD SUCCINATE 100 MG/2 ML VIAL IVPB SCH (10:49)
[2020-08-20] MEDS: CALCIUM CARBONATE SUSPENSION - 500 MG/5 ML ML NGT SCH ×2 (10:52→23:05)
[2020-08-20] MEDS: PANTOPRAZOLE SODIUM 40 MG VIAL IVPUSH SCH (10:52)
[2020-08-20] MEDS ORDERED: ACETAMINOPHEN 1000 MG/100 ML VIAL (NON FORMULARY) IVPB PRN (18:34)
[2020-08-21] MEDS: POTASSIUM CHLORIDE 20 MEQ in DEXTROSE 5%-WATER - 1,000 ML IV SCH ×3 (04:14→18:46)
[2020-08-21] MEDS: HEPARIN NA (PORCINE) 5,000 UNITS/ML 1ML VIAL SQ SCH ×3 (06:27→21:20)
[2020-08-21 08:57] LABS: HEMATOCRIT 35.3 % (35.4-49); HEMOGLOBIN 11.6 GM/dL (11.7-16.9); MCHC 32.9 g/dl (32.0-35.9); MEAN CELL VOLUME 97.1 fl (80-96); MEAN PLT VOLUME 9.7 fl (7.5-11.1); PLATELET COUNT 109 K/MM3 (134-434); RBC 3.64 M/mm3 (4.00-5.60); RDW 15.2 % (11.9-15.9); WHITE BLOOD COUNT 13.7 K/mm3 (4.0-10.0)
[2020-08-21 09:10] LABS: POTASSIUM 3.4 mmol/L (3.5-5.1)
[2020-08-21 09:12] LABS: CALCIUM 7.8 mg/dL (8.5-10.1)
[2020-08-21 09:13] LABS: BLOOD UREA NITROGEN 49.1 mg/dL (7-18); MAGNESIUM 1.7 mg/dL (1.8-2.4)
[2020-08-21 09:16] LABS: CREATININE 1.9 mg/dL (0.55-1.3)
[2020-08-21 09:17] LABS: PHOSPHOROUS 3.3 mg/dL (2.5-4.9)
[2020-08-21] MEDS: AMINO ACIDS/PROTEIN HYDROLYS 30 ML LIQUID.PKT PO SCH (09:51)
[2020-08-21] MEDS: CALCIUM CARBONATE SUSPENSION - 500 MG/5 ML ML NGT SCH ×2 (09:55→21:18)
[2020-08-21] MEDS ORDERED: CEFTRIAXONE 2 GM in DEXTROSE 5%-WATER 100 ML IVPB SCH (10:00)
[2020-08-21] MEDS ORDERED: PT OWN MED DRAWER 7, Y5N ONE ×2 (10:21→20:56)
[2020-08-21] MEDS ORDERED: DEXTROSE 5%-WATER 100 ML IVPB ONE (10:21)
[2020-08-21] MEDS: PANTOPRAZOLE SODIUM 40 MG VIAL IVPUSH SCH (10:28)
[2020-08-21] MEDS ORDERED: POTASSIUM CHLORIDE ORAL LIQUID 20 MEQ/15 ML PO ONE (10:47)
[2020-08-21] MEDS ORDERED: MAGNESIUM SULF 50% (8.12 MEQ/2 ML-1 GM VIAL) IVPB ONE (21:50)
[2020-08-22] MEDS: POTASSIUM CHLORIDE 20 MEQ in DEXTROSE 5%-WATER - 1,000 ML IV SCH (05:54)
[2020-08-22] MEDS: HEPARIN NA (PORCINE) 5,000 UNITS/ML 1ML VIAL SQ SCH ×3 (06:09→21:13)
[2020-08-22 06:44] LABS: BASO % 0.1 % (0-2.0); EOS % 1.4 % (0-4.5); HEMOGLOBIN 10.8 GM/dL (11.7-16.9); LYMPH % 7.9 % (8-40); MCH 31.6 pg (25.7-33.7); MCHC 32.7 g/dl (32.0-35.9); MEAN CELL VOLUME 96.5 fl (80-96); MONO % 5.7 % (3.8-10.2); NEUT % 84.9 % (42.8-82.8); PLATELET COUNT 85 K/MM3 (134-434); RBC 3.42 M/mm3 (4.00-5.60); RDW 15.1 % (11.9-15.9); WHITE BLOOD COUNT 11.6 K/mm3 (4.0-10.0)
[2020-08-22 07:05] LABS: POTASSIUM 3.5 mmol/L (3.5-5.1)
[2020-08-22 07:08] LABS: ALBUMIN 1.9 g/dl (3.4-5.0); BLOOD UREA NITROGEN 37.6 mg/dL (7-18); CALCIUM 7.6 mg/dL (8.5-10.1)
[2020-08-22 07:12] LABS: CREATININE 1.5 mg/dL (0.55-1.3)
[2020-08-22 07:13] LABS: BILIRUBIN,TOTAL 0.6 mg/dL (0.2-1); TOT PROT 5.1 g/dl (6.4-8.2)
[2020-08-22 08:18] LABS: MAGNESIUM 1.8 mg/dL (1.8-2.4)
[2020-08-22] MEDS ORDERED: PT OWN MED DRAWER 7, Y5N ONE (08:54)
[2020-08-22] MEDS: PANTOPRAZOLE SODIUM 40 MG VIAL IVPUSH SCH (09:59)
[2020-08-22] MEDS: AMINO ACIDS/PROTEIN HYDROLYS 30 ML LIQUID.PKT PO SCH (09:59)
[2020-08-22] MEDS: CALCIUM CARBONATE SUSPENSION - 500 MG/5 ML ML NGT SCH ×2 (09:59→21:15)
[2020-08-23] MEDS: ACETAMINOPHEN 500 MG TABLET (FP) PO PRN ×3 (00:38→17:10)
[2020-08-23] MEDS: HEPARIN NA (PORCINE) 5,000 UNITS/ML 1ML VIAL SQ SCH ×3 (05:45→23:35)
[2020-08-23 06:50] LABS: BASO % 0.2 % (0-2.0); EOS % 1.2 % (0-4.5); HEMATOCRIT 31.9 % (35.4-49); HEMOGLOBIN 10.5 GM/dL (11.7-16.9); LYMPH % 10.2 % (8-40); MCH 31.1 pg (25.7-33.7); MCHC 32.8 g/dl (32.0-35.9); MEAN CELL VOLUME 94.9 fl (80-96); MONO % 7.6 % (3.8-10.2); NEUT % 80.8 % (42.8-82.8); PLATELET COUNT 85 K/MM3 (134-434); RBC 3.36 M/mm3 (4.00-5.60); RDW 14.3 % (11.9-15.9); WHITE BLOOD COUNT 10.1 K/mm3 (4.0-10.0)
[2020-08-23 07:03] LABS: POTASSIUM 3.3 mmol/L (3.5-5.1)
[2020-08-23 07:11] LABS: BLOOD UREA NITROGEN 27.4 mg/dL (7-18)
[2020-08-23 07:12] LABS: MAGNESIUM 1.6 mg/dL (1.8-2.4)
[2020-08-23 07:14] LABS: CREATININE 1.4 mg/dL (0.55-1.3)
[2020-08-23 07:15] LABS: BILIRUBIN,TOTAL 0.7 mg/dL (0.2-1); TOT PROT 5.1 g/dl (6.4-8.2)
[2020-08-23] MEDS ORDERED: POTASSIUM CHLORIDE TABS 20 MEQ TABLET.ER (FP) PO ONE (07:43)
[2020-08-23] MEDS: CALCIUM CARBONATE SUSPENSION - 500 MG/5 ML ML NGT SCH (10:27)
[2020-08-23] MEDS: AMINO ACIDS/PROTEIN HYDROLYS 30 ML LIQUID.PKT PO SCH (10:27)
[2020-08-23] MEDS: PANTOPRAZOLE SODIUM 40 MG VIAL IVPUSH SCH (10:27)
[2020-08-23] MEDS ORDERED: MAGNESIUM SULF 50% (8.12 MEQ/2 ML-1 GM VIAL) IVPB ONE (14:34)
[2020-08-23] MEDS ORDERED: PT OWN MED DRAWER 7, Y5N ONE (23:59)
[2020-08-24] MEDS: SENNOSIDES 8.8 MG/5 ML BULK BOTTLE PO SCH ×2 (00:19→21:23)
[2020-08-24] MEDS: ACETAMINOPHEN 500 MG TABLET (FP) PO PRN ×3 (02:51→20:43)
[2020-08-24 04:19] LABS: HEMATOCRIT 35.3 % (35.4-49); HEMOGLOBIN 11.5 GM/dL (11.7-16.9); MCH 30.9 pg (25.7-33.7); MCHC 32.5 g/dl (32.0-35.9); MEAN PLT VOLUME 10.5 fl (7.5-11.1); PLATELET COUNT 107 K/MM3 (134-434); RBC 3.72 M/mm3 (4.00-5.60); RDW 14.5 % (11.9-15.9); WHITE BLOOD COUNT 11.9 K/mm3 (4.0-10.0)
[2020-08-24] MEDS: HEPARIN NA (PORCINE) 5,000 UNITS/ML 1ML VIAL SQ SCH ×3 (06:28→21:24)
[2020-08-24 08:37] LABS: HEMOGLOBIN 10.4 GM/dL (11.7-16.9); MCH 31.1 pg (25.7-33.7); MCHC 32.6 g/dl (32.0-35.9); MEAN CELL VOLUME 95.6 fl (80-96); MEAN PLT VOLUME 10.5 fl (7.5-11.1); PLATELET COUNT 118 K/MM3 (134-434); RBC 3.35 M/mm3 (4.00-5.60); RDW 14.6 % (11.9-15.9); WHITE BLOOD COUNT 11.7 K/mm3 (4.0-10.0)
[2020-08-24 09:01] LABS: POTASSIUM 3.5 mmol/L (3.5-5.1)
[2020-08-24 09:03] LABS: CALCIUM 8.5 mg/dL (8.5-10.1)
[2020-08-24 09:04] LABS: BLOOD UREA NITROGEN 19.2 mg/dL (7-18); MAGNESIUM 1.8 mg/dL (1.8-2.4)
[2020-08-24 09:06] LABS: BILIRUBIN,DIRECT 0.3 mg/dL (0.0-0.2)
[2020-08-24 09:07] LABS: CREATININE 1.4 mg/dL (0.55-1.3); PHOSPHOROUS 2.3 mg/dL (2.5-4.9)
[2020-08-24 09:08] LABS: BILIRUBIN,TOTAL 0.6 mg/dL (0.2-1); TOT PROT 5.2 g/dl (6.4-8.2)
[2020-08-24] MEDS: AMINO ACIDS/PROTEIN HYDROLYS 30 ML LIQUID.PKT PO SCH (09:46)
[2020-08-24] MEDS: PANTOPRAZOLE SODIUM 40 MG VIAL IVPUSH SCH (09:46)
[2020-08-24] MEDS ORDERED: PIPERACILLIN/TAZOB 3.375 GM 3.375 GM in DEXTROSE 5%-WATER - 50 ML IVPB ONE (10:45)
[2020-08-24] MEDS ORDERED: DEXTROSE 5%-WATER - 50 ML IVPB ONE (10:50)
[2020-08-24] MEDS ORDERED: PIPERACILLIN/TAZOBACTAM 3.375 GM VIAL IVPB ONE (10:50)
[2020-08-24] MEDS ORDERED: VANCOMYCIN HCL 1,500 MG in DEXTROSE 5%-WATER - 500 ML IVPB ONE (11:00)
[2020-08-24] MEDS ORDERED: PIPERACILLIN/TAZOBACTAM 4.5 GM VIAL IVPB ONE (17:24)
[2020-08-24] MEDS ORDERED: DEXTROSE 5%-WATER 100 ML IVPB ONE (17:24)
[2020-08-24] MEDS: PIPERACILLIN/TAZOB 4.5 GM 4.5 GM in DEXTROSE 5%-WATER 100 ML IVPB SCH (17:36)
[2020-08-24 19:04] LABS: EPI CELLS 13 /uL (0-25.1); HYALINE CASTS 1 /uL (0-3.1); PH,URINE 5.5 (5.0-8.0); URINE APPEARANCE CLEAR; URINE BACTERIA 4 /uL (0-1359); URINE BILIRUBIN NEGATIVE (NEGATIVE); URINE COLOR YELLOW; URINE GLUCOSE (UA) NEGATIVE (NEGATIVE); URINE KETONE NEGATIVE (NEGATIVE); URINE LEUK ESTERASE TRACE (NEGATIVE); URINE NITRITE NEGATIVE (NEGATIVE); URINE PROTEIN 2+ (NEGATIVE); URINE RBC 17 /uL (0-23.9); URINE UROBILINOGEN 0.2 mg/dL (0.2-1.0); URINE WBC 53 /uL (0-25.8)
[2020-08-24] MEDS ORDERED: PT OWN MED DRAWER 7, Y5N ONE (20:58)
[2020-08-25] MEDS ORDERED: PIPERACILLIN/TAZOBACTAM 4.5 GM VIAL IVPB ONE ×4 (01:12→17:56)
[2020-08-25] MEDS ORDERED: DEXTROSE 5%-WATER 100 ML IVPB ONE ×4 (01:13→17:56)
[2020-08-25] MEDS: PIPERACILLIN/TAZOB 4.5 GM 4.5 GM in DEXTROSE 5%-WATER 100 ML IVPB SCH ×3 (01:15→17:58)
[2020-08-25] MEDS: ACETAMINOPHEN 500 MG TABLET (FP) PO PRN (02:25)
[2020-08-25 02:48] LABS: YEAST FEW (NEGATIVE)
[2020-08-25] MEDS: HEPARIN NA (PORCINE) 5,000 UNITS/ML 1ML VIAL SQ SCH ×2 (06:09→20:59)
[2020-08-25] MEDS ORDERED: ACETAMINOPHEN 500 MG TABLET (FP) PO ONE (06:15)
[2020-08-25 07:07] LABS: HEMATOCRIT 33.4 % (35.4-49); HEMOGLOBIN 10.7 GM/dL (11.7-16.9); MCH 30.2 pg (25.7-33.7); MEAN CELL VOLUME 94.5 fl (80-96); MEAN PLT VOLUME 10.6 fl (7.5-11.1); PLATELET COUNT 176 K/MM3 (134-434); RBC 3.53 M/mm3 (4.00-5.60); RDW 14.8 % (11.9-15.9); WHITE BLOOD COUNT 15.3 K/mm3 (4.0-10.0)
[2020-08-25 07:24] LABS: POTASSIUM 3.6 mmol/L (3.5-5.1)
[2020-08-25 07:36] LABS: BLOOD UREA NITROGEN 17.5 mg/dL (7-18); CALCIUM 8.9 mg/dL (8.5-10.1)
[2020-08-25 07:37] LABS: MAGNESIUM 1.6 mg/dL (1.8-2.4)
[2020-08-25 07:41] LABS: BILIRUBIN,TOTAL 0.8 mg/dL (0.2-1); CREATININE 1.6 mg/dL (0.55-1.3); PHOSPHOROUS 2.7 mg/dL (2.5-4.9); TOT PROT 5.7 g/dl (6.4-8.2)
[2020-08-25] MEDS ORDERED: LACTATED RINGERS SOLUTION 1000 ML INFUS.BAG IV ONE (07:51)
[2020-08-25] MEDS: AMINO ACIDS/PROTEIN HYDROLYS 30 ML LIQUID.PKT PO SCH (09:45)
[2020-08-25] MEDS: PANTOPRAZOLE SODIUM 40 MG VIAL IVPUSH SCH (09:45)
[2020-08-25] MEDS ORDERED: VANCOMYCIN HCL 1,500 MG in DEXTROSE 5%-WATER - 500 ML IVPB SCH (11:00)
[2020-08-25] MEDS ORDERED: FUROSEMIDE 40 MG/4 ML INJECTABLE VIAL ONE (11:23)
[2020-08-25] MEDS: ACETAMINOPHEN 1000 MG/100 ML VIAL (NON FORMULARY) IVPB PRN ×2 (11:55→20:56)
[2020-08-25 11:59] LABS: ARTERIAL BLD GAS O2 SATURATION 97.3 mmHg (95-98); ARTERIAL BLOOD GAS BASE EXCESS 2.1 mmol/L (-2-2); ARTERIAL BLOOD GAS PO2 99.8 mmHg (80-100); ARTERIAL BLOOD GAS pH 7.361 (7.350-7.450)
[2020-08-25 12:00] LABS: ALLENS TEST POSITIVE
[2020-08-25 14:48] LABS: BF WBC & OTHER NUCLEATED CELLS 2095 /mm3
[2020-08-25 15:11] LABS: BODY FLUID MACROPHAGES 1 %; BODY FLUID MONOCYTE 6 %
[2020-08-25] MEDS: SODIUM CHLORIDE 1,000 ML IV SCH (15:32)
[2020-08-25] MEDS ORDERED: PT OWN MED DRAWER 7, Y5N ONE (20:29)
[2020-08-25] MEDS: CHLORHEXIDINE GLUCONATE 4% CLEANSER FOR DECOLONIZATION TP SCH (20:59)
[2020-08-25] MEDS: MUPIROCIN 2% TOPICAL OINTMENT FOR DECOLONIZATION NS SCH (20:59)
[2020-08-25] MEDS: SENNOSIDES 8.8 MG/5 ML BULK BOTTLE PO SCH (21:00)
[2020-08-25] MEDS: ACYCLOVIR INJECTION 400 MG in DEXTROSE 5%-WATER - 100 ML IVPB SCH (21:21)
[2020-08-25] MEDS ORDERED: ACYCLOVIR 400 MG TABLET PO SCH (22:00)
[2020-08-26] MEDS ORDERED: DEXTROSE 5%-WATER 100 ML IVPB ONE ×3 (00:19→17:33)
[2020-08-26] MEDS ORDERED: PIPERACILLIN/TAZOBACTAM 4.5 GM VIAL IVPB ONE ×3 (00:19→17:33)
[2020-08-26] MEDS: PIPERACILLIN/TAZOB 4.5 GM 4.5 GM in DEXTROSE 5%-WATER 100 ML IVPB SCH ×3 (01:01→17:39)
[2020-08-26] MEDS: ACYCLOVIR INJECTION 400 MG in DEXTROSE 5%-WATER - 100 ML IVPB SCH ×3 (02:01→17:48)
[2020-08-26] MEDS ORDERED: MORPHINE SULFATE 2 MG/ML VIAL IVPUSH ONE ×2 (02:11→19:00)
[2020-08-26] MEDS ORDERED: MORPHINE SULFATE 2 MG/ML VIAL IVPUSH PRN (02:13)
[2020-08-26] MEDS: SODIUM CHLORIDE 1,000 ML IV SCH ×3 (03:08→19:00)
[2020-08-26] MEDS ORDERED: ACETAMINOPHEN 1000 MG/100 ML VIAL (NON FORMULARY) IVPB PRN (04:05)
[2020-08-26] MEDS ORDERED: ONDANSETRON 4 MG/2 ML VIAL IVPUSH PRN (04:05)
[2020-08-26] MEDS: HEPARIN NA (PORCINE) 5,000 UNITS/ML 1ML VIAL SQ SCH ×3 (06:04→21:04)
[2020-08-26] MEDS: AMINO ACIDS/PROTEIN HYDROLYS 30 ML LIQUID.PKT PO SCH (08:50)
[2020-08-26] MEDS: MUPIROCIN 2% TOPICAL OINTMENT FOR DECOLONIZATION NS SCH ×2 (10:32→21:04)
[2020-08-26] MEDS: PANTOPRAZOLE SODIUM 40 MG VIAL IVPUSH SCH (10:33)
[2020-08-26] MEDS ORDERED: VANCOMYCIN HCL 1,500 MG in DEXTROSE 5%-WATER - 500 ML IVPB SCH (11:00)
[2020-08-26] MEDS ORDERED: PT OWN MED DRAWER 7, Y5N ONE ×3 (12:07→17:32)
[2020-08-26] MEDS ORDERED: INSULIN (NOVOLOG) ASPART 100 UNITS/ML 10ML VIAL ONE (12:08)
[2020-08-26 12:13] LABS: BASO % 0.2 % (0-2.0); EOS % 0.8 % (0-4.5); HEMATOCRIT 28.9 % (35.4-49); HEMOGLOBIN 9.7 GM/dL (11.7-16.9); LYMPH % 8.8 % (8-40); MCH 32.3 pg (25.7-33.7); MCHC 33.6 g/dl (32.0-35.9); MEAN CELL VOLUME 96.3 fl (80-96); MEAN PLT VOLUME 10.2 fl (7.5-11.1); MONO % 7.6 % (3.8-10.2); NEUT % 82.6 % (42.8-82.8); PLATELET COUNT 197 K/MM3 (134-434); RBC 3.01 M/mm3 (4.00-5.60); WHITE BLOOD COUNT 10.1 K/mm3 (4.0-10.0)
[2020-08-26 12:31] LABS: POTASSIUM 3.9 mmol/L (3.5-5.1)
[2020-08-26 12:33] LABS: CALCIUM 8.2 mg/dL (8.5-10.1)
[2020-08-26 12:34] LABS: ALBUMIN 1.8 g/dl (3.4-5.0); BLOOD UREA NITROGEN 19.6 mg/dL (7-18); MAGNESIUM 1.5 mg/dL (1.8-2.4)
[2020-08-26 12:37] LABS: CREATININE 1.9 mg/dL (0.55-1.3); PHOSPHOROUS 3.9 mg/dL (2.5-4.9)
[2020-08-26 12:38] LABS: BILIRUBIN,TOTAL 0.4 mg/dL (0.2-1); TOT PROT 5.5 g/dl (6.4-8.2)
[2020-08-26] MEDS ORDERED: MAGNESIUM 2GM/50ML STERILE WATER IVPB IVPB ONE (16:15)
[2020-08-26] MEDS ORDERED: ACETAMINOPHEN 1000 MG/100 ML VIAL (NON FORMULARY) IVPB ONE (17:18)
[2020-08-26] MEDS ORDERED: methylPREDNISolone NA SUCC 40 MG/1 ML VIAL IVPUSH ONE (20:24)
[2020-08-26] MEDS: MORPHINE SULFATE 2 MG/ML VIAL IVPUSH PRN (20:46)
[2020-08-26] MEDS: SENNOSIDES 8.8 MG/5 ML BULK BOTTLE PO SCH (21:03)
[2020-08-26] MEDS: CHLORHEXIDINE GLUCONATE 4% CLEANSER FOR DECOLONIZATION TP SCH (21:03)
[2020-08-27] MEDS: ACYCLOVIR INJECTION 400 MG in DEXTROSE 5%-WATER - 100 ML IVPB SCH ×3 (01:00→17:13)
[2020-08-27] MEDS ORDERED: PT OWN MED DRAWER 7, Y5N ONE ×4 (01:15→19:48)
[2020-08-27] MEDS ORDERED: DEXTROSE 5%-WATER 100 ML IVPB ONE ×3 (01:15→16:59)
[2020-08-27] MEDS ORDERED: PIPERACILLIN/TAZOBACTAM 4.5 GM VIAL IVPB ONE ×3 (01:15→16:59)
[2020-08-27] MEDS ORDERED: METOPROLOL TARTRATE 5 MG/5 ML VIAL IVPUSH ONE ×3 (01:18→04:48)
[2020-08-27] MEDS ORDERED: ALTEPLASE 2 MG VIAL NR ONE ×2 (01:28→04:00)
[2020-08-27] MEDS: PIPERACILLIN/TAZOB 4.5 GM 4.5 GM in DEXTROSE 5%-WATER 100 ML IVPB SCH ×3 (02:00→17:12)
[2020-08-27] MEDS ORDERED: ACETAMINOPHEN INJECTION 100 ML IVPB ONE (03:23)
[2020-08-27] MEDS ORDERED: ACETAMINOPHEN 1000 MG/100 ML VIAL (NON FORMULARY) IVPB ONE (03:23)
[2020-08-27] MEDS ORDERED: SODIUM CHLORIDE 500 ML IV STA ×3 (04:14→11:42)
[2020-08-27] MEDS: HEPARIN NA (PORCINE) 5,000 UNITS/ML 1ML VIAL SQ SCH ×2 (05:15→13:02)
[2020-08-27] MEDS: MORPHINE SULFATE 2 MG/ML VIAL IVPUSH PRN ×2 (06:18→23:48)
[2020-08-27 07:16] LABS: BASO % 0.2 % (0-2.0); HEMATOCRIT 27.9 % (35.4-49); HEMOGLOBIN 9.1 GM/dL (11.7-16.9); LYMPH % 5.2 % (8-40); MCH 30.9 pg (25.7-33.7); MCHC 32.5 g/dl (32.0-35.9); MEAN CELL VOLUME 94.9 fl (80-96); MEAN PLT VOLUME 10.2 fl (7.5-11.1); MONO % 4.8 % (3.8-10.2); NEUT % 89.8 % (42.8-82.8); PLATELET COUNT 209 K/MM3 (134-434); RBC 2.94 M/mm3 (4.00-5.60); RDW 14.9 % (11.9-15.9); WHITE BLOOD COUNT 8.7 K/mm3 (4.0-10.0)
[2020-08-27 07:34] LABS: POTASSIUM 4.1 mmol/L (3.5-5.1)
[2020-08-27 07:45] LABS: CALCIUM 7.5 mg/dL (8.5-10.1)
[2020-08-27 07:46] LABS: ALBUMIN 1.5 g/dl (3.4-5.0); BLOOD UREA NITROGEN 22.9 mg/dL (7-18); MAGNESIUM 1.9 mg/dL (1.8-2.4)
[2020-08-27 07:49] LABS: CREATININE 2.3 mg/dL (0.55-1.3); PHOSPHOROUS 4.7 mg/dL (2.5-4.9)
[2020-08-27 07:50] LABS: BILIRUBIN,TOTAL 0.5 mg/dL (0.2-1)
[2020-08-27 07:51] LABS: TOT PROT 5.2 g/dl (6.4-8.2)
[2020-08-27] MEDS: AMINO ACIDS/PROTEIN HYDROLYS 30 ML LIQUID.PKT PO SCH (09:20)
[2020-08-27] MEDS: PANTOPRAZOLE SODIUM 40 MG VIAL IVPUSH SCH (09:23)
[2020-08-27] MEDS: MUPIROCIN 2% TOPICAL OINTMENT FOR DECOLONIZATION NS SCH ×2 (09:25→21:01)
[2020-08-27] MEDS ORDERED: HEPARIN NA (PORCINE) 5,000 UNITS/ML 1ML VIAL IVPUSH PRN (15:12)
[2020-08-27] MEDS: HEPARIN - 25,000 UNIT in SODIUM CHLORIDE 495 ML IV SCH (17:10)
[2020-08-27] MEDS: ACETAMINOPHEN 325 MG TABLET (FP) PO PRN (21:00)
[2020-08-27] MEDS: SODIUM CHLORIDE 1,000 ML IV SCH (21:01)
[2020-08-27] MEDS: SENNOSIDES 8.8 MG/5 ML BULK BOTTLE PO SCH (21:01)
[2020-08-27] MEDS: CHLORHEXIDINE GLUCONATE 4% CLEANSER FOR DECOLONIZATION TP SCH (21:01)
[2020-08-27] MEDS ORDERED: SODIUM CHLORIDE 1,000 ML IV SCH (21:03)
[2020-08-27] MEDS: HEPARIN NA (PORCINE) 5,000 UNITS/ML 1ML VIAL IVPUSH PRN (23:48)
[2020-08-28] MEDS ORDERED: DEXTROSE 5%-WATER 100 ML IVPB ONE ×3 (00:56→17:25)
[2020-08-28] MEDS ORDERED: PIPERACILLIN/TAZOBACTAM 4.5 GM VIAL IVPB ONE ×3 (00:56→17:25)
[2020-08-28] MEDS: ACYCLOVIR INJECTION 400 MG in DEXTROSE 5%-WATER - 100 ML IVPB SCH ×2 (01:16→10:22)
[2020-08-28] MEDS: PIPERACILLIN/TAZOB 4.5 GM 4.5 GM in DEXTROSE 5%-WATER 100 ML IVPB SCH ×3 (02:00→17:30)
[2020-08-28] MEDS: ACETAMINOPHEN 325 MG TABLET (FP) PO PRN ×4 (06:27→23:16)
[2020-08-28 07:16] LABS: BASO % 0.4 % (0-2.0); EOS % 1.3 % (0-4.5); HEMATOCRIT 27.8 % (35.4-49); LYMPH % 14.8 % (8-40); MCH 30.9 pg (25.7-33.7); MCHC 32.5 g/dl (32.0-35.9); MEAN CELL VOLUME 94.8 fl (80-96); MEAN PLT VOLUME 9.5 fl (7.5-11.1); MONO % 5.2 % (3.8-10.2); NEUT % 78.3 % (42.8-82.8); PLATELET COUNT 244 K/MM3 (134-434); RBC 2.93 M/mm3 (4.00-5.60); RDW 14.7 % (11.9-15.9); WHITE BLOOD COUNT 7.8 K/mm3 (4.0-10.0)
[2020-08-28 07:25] LABS: POTASSIUM 3.7 mmol/L (3.5-5.1)
[2020-08-28] MEDS: HEPARIN NA (PORCINE) 5,000 UNITS/ML 1ML VIAL IVPUSH PRN ×2 (07:27→16:30)
[2020-08-28 07:34] LABS: CALCIUM 7.7 mg/dL (8.5-10.1)
[2020-08-28 07:35] LABS: ALBUMIN 1.7 g/dl (3.4-5.0); BLOOD UREA NITROGEN 26.6 mg/dL (7-18); MAGNESIUM 1.9 mg/dL (1.8-2.4)
[2020-08-28 07:38] LABS: CREATININE 2.4 mg/dL (0.55-1.3); PHOSPHOROUS 4.1 mg/dL (2.5-4.9)
[2020-08-28 07:39] LABS: BILIRUBIN,TOTAL 0.4 mg/dL (0.2-1); TOT PROT 5.7 g/dl (6.4-8.2)
[2020-08-28] MEDS: PANTOPRAZOLE SODIUM 40 MG VIAL IVPUSH SCH (09:11)
[2020-08-28] MEDS: MORPHINE SULFATE 2 MG/ML VIAL IVPUSH PRN ×3 (09:11→18:49)
[2020-08-28] MEDS: AMINO ACIDS/PROTEIN HYDROLYS 30 ML LIQUID.PKT PO SCH (09:12)
[2020-08-28] MEDS: MUPIROCIN 2% TOPICAL OINTMENT FOR DECOLONIZATION NS SCH ×2 (09:24→21:00)
[2020-08-28] MEDS ORDERED: PT OWN MED DRAWER 7, Y5N ONE (10:07)
[2020-08-28] MEDS: ACYCLOVIR 400 MG TABLET PO SCH ×2 (14:42→21:00)
[2020-08-28] MEDS: HEPARIN - 25,000 UNIT in SODIUM CHLORIDE 495 ML IV SCH (18:00)
[2020-08-28] MEDS ORDERED: HEPARIN NA (PORCINE) 5,000 UNITS/ML 1ML VIAL IVPUSH ONE (18:34)
[2020-08-28] MEDS: SENNOSIDES 8.8 MG/5 ML BULK BOTTLE PO SCH (21:00)
[2020-08-28] MEDS: CHLORHEXIDINE GLUCONATE 4% CLEANSER FOR DECOLONIZATION TP SCH (21:00)
[2020-08-29] MEDS: PIPERACILLIN/TAZOB 4.5 GM 4.5 GM in DEXTROSE 5%-WATER 100 ML IVPB SCH ×3 (02:15→09:13)
[2020-08-29] MEDS ORDERED: DEXTROSE 5%-WATER 100 ML IVPB ONE ×2 (03:49→09:07)
[2020-08-29] MEDS ORDERED: PIPERACILLIN/TAZOBACTAM 4.5 GM VIAL IVPB ONE ×2 (03:49→09:07)
[2020-08-29] MEDS: ACYCLOVIR 400 MG TABLET PO SCH ×3 (05:32→23:17)
[2020-08-29] MEDS: AMINO ACIDS/PROTEIN HYDROLYS 30 ML LIQUID.PKT PO SCH (08:33)
[2020-08-29] MEDS: ACETAMINOPHEN 325 MG TABLET (FP) PO PRN ×3 (08:47→23:19)
[2020-08-29] MEDS: PANTOPRAZOLE SODIUM 40 MG VIAL IVPUSH SCH (09:13)
[2020-08-29] MEDS: MUPIROCIN 2% TOPICAL OINTMENT FOR DECOLONIZATION NS SCH ×2 (09:14→22:56)
[2020-08-29 11:13] LABS: HEMATOCRIT 26.6 % (35.4-49); HEMOGLOBIN 8.8 GM/dL (11.7-16.9); MCH 31.8 pg (25.7-33.7); MCHC 33.3 g/dl (32.0-35.9); MEAN CELL VOLUME 95.6 fl (80-96); MEAN PLT VOLUME 8.9 fl (7.5-11.1); PLATELET COUNT 222 K/MM3 (134-434); RBC 2.78 M/mm3 (4.00-5.60); RDW 14.5 % (11.9-15.9); WHITE BLOOD COUNT 5.8 K/mm3 (4.0-10.0)
[2020-08-29 11:58] LABS: POTASSIUM 3.4 mmol/L (3.5-5.1)
[2020-08-29 12:01] LABS: ALBUMIN 1.6 g/dl (3.4-5.0); BLOOD UREA NITROGEN 26.1 mg/dL (7-18); CALCIUM 7.4 mg/dL (8.5-10.1)
[2020-08-29 12:02] LABS: MAGNESIUM 1.6 mg/dL (1.8-2.4)
[2020-08-29] MEDS: HEPARIN NA (PORCINE) 5,000 UNITS/ML 1ML VIAL IVPUSH PRN (12:02)
[2020-08-29 12:04] LABS: CREATININE 2.4 mg/dL (0.55-1.3)
[2020-08-29 12:05] LABS: PHOSPHOROUS 4.4 mg/dL (2.5-4.9)
[2020-08-29 12:06] LABS: BILIRUBIN,TOTAL 0.2 mg/dL (0.2-1); TOT PROT 5.5 g/dl (6.4-8.2)
[2020-08-29] MEDS ORDERED: POTASSIUM CHLORIDE TABS 20 MEQ TABLET.ER (FP) PO ONE (13:40)
[2020-08-29] MEDS ORDERED: MAGNESIUM 2GM/50ML STERILE WATER IVPB IVPB ONE (14:00)
[2020-08-29] MEDS: HEPARIN - 25,000 UNIT in SODIUM CHLORIDE 495 ML IV SCH ×2 (14:51→17:56)
[2020-08-29] MEDS ORDERED: HEPARIN NA (PORCINE) 5,000 UNITS/ML 1ML VIAL IVPUSH PRN ×3 (17:43)
[2020-08-29] MEDS ORDERED: ONDANSETRON 4 MG/2 ML VIAL IVPUSH PRN (17:43)
[2020-08-29] MEDS: MORPHINE SULFATE 2 MG/ML VIAL IVPUSH PRN (21:03)
[2020-08-29] MEDS ORDERED: PT OWN MED DRAWER 7, Y5N ONE (22:57)
[2020-08-29] MEDS: CHLORHEXIDINE GLUCONATE 4% CLEANSER FOR DECOLONIZATION TP SCH (22:58)
[2020-08-29] MEDS: SENNOSIDES 8.8 MG/5 ML BULK BOTTLE PO SCH (23:16)
[2020-08-30] MEDS: HEPARIN NA (PORCINE) 5,000 UNITS/ML 1ML VIAL IVPUSH PRN ×2 (00:45→10:14)
[2020-08-30] MEDS: MORPHINE SULFATE 2 MG/ML VIAL IVPUSH PRN (01:58)
[2020-08-30] MEDS: ACYCLOVIR 400 MG TABLET PO SCH ×3 (05:45→21:00)
[2020-08-30 08:32] LABS: POTASSIUM 3.9 mmol/L (3.5-5.1)
[2020-08-30 08:34] LABS: ALBUMIN 1.8 g/dl (3.4-5.0); BLOOD UREA NITROGEN 23.9 mg/dL (7-18); CALCIUM 7.7 mg/dL (8.5-10.1); MAGNESIUM 1.8 mg/dL (1.8-2.4)
[2020-08-30] MEDS: AMINO ACIDS/PROTEIN HYDROLYS 30 ML LIQUID.PKT PO SCH (08:35)
[2020-08-30 08:38] LABS: CREATININE 2.2 mg/dL (0.55-1.3)
[2020-08-30 08:39] LABS: BILIRUBIN,TOTAL 0.2 mg/dL (0.2-1); TOT PROT 5.5 g/dl (6.4-8.2)
[2020-08-30] MEDS ORDERED: PT OWN MED DRAWER 7, Y5N ONE ×3 (09:24→20:42)
[2020-08-30] MEDS: PANTOPRAZOLE SODIUM 40 MG VIAL IVPUSH SCH (09:38)
[2020-08-30] MEDS: MUPIROCIN 2% TOPICAL OINTMENT FOR DECOLONIZATION NS SCH (09:38)
[2020-08-30] MEDS: ACETAMINOPHEN 325 MG TABLET (FP) PO PRN ×2 (09:38→20:54)
[2020-08-30 09:56] LABS: INR 1.04 (0.83-1.09); PROTHROMBIN TIME (PATIENT) 12.8 SEC (9.7-13.0)
[2020-08-30 09:58] LABS: ACTIVATED PTT 37.5 SECONDS (25.2-36.5)
[2020-08-30] MEDS ORDERED: FUROSEMIDE 40 MG/4 ML INJECTABLE VIAL IVPUSH ONE (15:00)
[2020-08-30 15:18] LABS: HEMATOCRIT 29.9 % (35.4-49); HEMOGLOBIN 9.5 GM/dL (11.7-16.9); MCH 31.2 pg (25.7-33.7); MCHC 31.8 g/dl (32.0-35.9); MEAN PLT VOLUME 9.2 fl (7.5-11.1); PLATELET COUNT 217 K/MM3 (134-434); RBC 3.06 M/mm3 (4.00-5.60); RDW 15.1 % (11.9-15.9); WHITE BLOOD COUNT 5.4 K/mm3 (4.0-10.0)
[2020-08-30] MEDS: SENNOSIDES 8.8 MG/5 ML BULK BOTTLE PO SCH (20:59)
[2020-08-30] MEDS: CHLORHEXIDINE GLUCONATE 4% CLEANSER FOR DECOLONIZATION TP SCH (22:00)
[2020-08-30] MEDS: HEPARIN - 25,000 UNIT in SODIUM CHLORIDE 495 ML IV SCH (22:01)
[2020-08-31] MEDS: ACYCLOVIR 400 MG TABLET PO SCH ×3 (06:39→21:21)
[2020-08-31] MEDS ORDERED: PT OWN MED DRAWER 7, Y5N ONE ×3 (06:45→20:28)
[2020-08-31] MEDS: AMINO ACIDS/PROTEIN HYDROLYS 30 ML LIQUID.PKT PO SCH ×2 (08:11→16:31)
[2020-08-31 09:02] LABS: HEMATOCRIT 30.1 % (35.4-49); HEMOGLOBIN 9.7 GM/dL (11.7-16.9); MCH 31.4 pg (25.7-33.7); MCHC 32.2 g/dl (32.0-35.9); MEAN CELL VOLUME 97.4 fl (80-96); MEAN PLT VOLUME 8.6 fl (7.5-11.1); PLATELET COUNT 241 K/MM3 (134-434); RBC 3.09 M/mm3 (4.00-5.60); WHITE BLOOD COUNT 8.2 K/mm3 (4.0-10.0)
[2020-08-31 09:05] LABS: ALBUMIN 1.8 g/dl (3.4-5.0); MAGNESIUM 1.8 mg/dL (1.8-2.4)
[2020-08-31 09:06] LABS: BLOOD UREA NITROGEN 21.2 mg/dL (7-18)
[2020-08-31 09:08] LABS: CREATININE 2.1 mg/dL (0.55-1.3); PHOSPHOROUS 4.2 mg/dL (2.5-4.9)
[2020-08-31 09:10] LABS: BILIRUBIN,TOTAL 0.4 mg/dL (0.2-1); TOT PROT 5.6 g/dl (6.4-8.2)
[2020-08-31] MEDS: ACETAMINOPHEN 325 MG TABLET (FP) PO PRN ×3 (09:31→20:35)
[2020-08-31] MEDS: ALLOPURINOL 100 MG TABLET (FP) PO SCH (09:31)
[2020-08-31] MEDS: PANTOPRAZOLE SODIUM 40 MG VIAL IVPUSH SCH (09:32)
[2020-08-31] MEDS ORDERED: FUROSEMIDE 40 MG/4 ML INJECTABLE VIAL IVPUSH ONE (11:45)
[2020-08-31] MEDS: HEPARIN - 25,000 UNIT in SODIUM CHLORIDE 495 ML IV SCH ×2 (13:24→20:34)
[2020-08-31] MEDS ORDERED: FLU VACCINE (FLULAVAL) PF 60 MCG/0.5 ML SYRINGE 2020-2021 IM ONE (14:00)
[2020-08-31] MEDS: SENNOSIDES 8.8 MG/5 ML BULK BOTTLE PO SCH (21:21)
[2020-08-31] MEDS: CHLORHEXIDINE GLUCONATE 4% CLEANSER FOR DECOLONIZATION TP SCH (21:21)
[2020-09-01] MEDS: ACYCLOVIR 400 MG TABLET PO SCH ×3 (06:20→21:21)
[2020-09-01] MEDS: HEPARIN - 25,000 UNIT in SODIUM CHLORIDE 495 ML IV SCH (06:20)
[2020-09-01] MEDS: ACETAMINOPHEN 325 MG TABLET (FP) PO PRN ×3 (06:27→20:06)
[2020-09-01 06:51] LABS: HEMATOCRIT 29.4 % (35.4-49); HEMOGLOBIN 9.4 GM/dL (11.7-16.9); MCH 30.6 pg (25.7-33.7); MCHC 32.1 g/dl (32.0-35.9); MEAN CELL VOLUME 95.1 fl (80-96); MEAN PLT VOLUME 8.6 fl (7.5-11.1); PLATELET COUNT 250 K/MM3 (134-434); RBC 3.09 M/mm3 (4.00-5.60); RDW 14.7 % (11.9-15.9); WHITE BLOOD COUNT 5.7 K/mm3 (4.0-10.0)
[2020-09-01 07:34] LABS: ALBUMIN 1.8 g/dl (3.4-5.0); BILIRUBIN,TOTAL 0.4 mg/dL (0.2-1); BLOOD UREA NITROGEN 24.8 mg/dL (7-18); CREATININE 1.9 mg/dL (0.55-1.3); MAGNESIUM 1.4 mg/dL (1.8-2.4); PHOSPHOROUS 3.8 mg/dL (2.5-4.9); POTASSIUM 3.5 mmol/L (3.5-5.1); TOT PROT 5.5 g/dl (6.4-8.2)
[2020-09-01] MEDS: AMINO ACIDS/PROTEIN HYDROLYS 30 ML LIQUID.PKT PO SCH ×2 (08:45→17:42)
[2020-09-01] MEDS: PANTOPRAZOLE SODIUM 40 MG VIAL IVPUSH SCH (09:35)
[2020-09-01] MEDS: APIXABAN 5 MG TABLET PO SCH ×2 (09:36→21:20)
[2020-09-01] MEDS: ALLOPURINOL 100 MG TABLET (FP) PO SCH (09:36)
[2020-09-01] MEDS ORDERED: FUROSEMIDE 40 MG/4 ML INJECTABLE VIAL IVPUSH ONE (12:02)
[2020-09-01] MEDS ORDERED: MAGNESIUM SULF 50% (8.12 MEQ/2 ML-1 GM VIAL) IVPB ONE (12:02)
[2020-09-01] MEDS ORDERED: POTASSIUM CHLORIDE ORAL LIQUID 20 MEQ/15 ML PO ONE (12:02)
[2020-09-01] MEDS ORDERED: MAGNESIUM SULFATE IN WATER 2 GM/50 ML IVPB IVPB ONE (12:15)
[2020-09-01] MEDS ORDERED: PT OWN MED DRAWER 7, Y5N ONE ×2 (13:52→21:16)
[2020-09-01] MEDS: SENNOSIDES 8.8 MG/5 ML BULK BOTTLE PO SCH (21:20)
[2020-09-01] MEDS: CHLORHEXIDINE GLUCONATE 4% CLEANSER FOR DECOLONIZATION TP SCH (21:21)
[2020-09-02] MEDS: ACETAMINOPHEN 325 MG TABLET (FP) PO PRN ×2 (05:51→18:19)
[2020-09-02] MEDS: ACYCLOVIR 400 MG TABLET PO SCH ×3 (06:00→21:16)
[2020-09-02 08:02] LABS: POTASSIUM 3.6 mmol/L (3.5-5.1)
[2020-09-02 08:06] LABS: CALCIUM 7.9 mg/dL (8.5-10.1)
[2020-09-02 08:07] LABS: ALBUMIN 1.8 g/dl (3.4-5.0); BLOOD UREA NITROGEN 22.9 mg/dL (7-18); MAGNESIUM 1.9 mg/dL (1.8-2.4)
[2020-09-02 08:10] LABS: BASO % 0.4 % (0-2.0); CREATININE 1.9 mg/dL (0.55-1.3); EOS % 3.8 % (0-4.5); HEMATOCRIT 27.7 % (35.4-49); HEMOGLOBIN 8.9 GM/dL (11.7-16.9); LYMPH % 16.9 % (8-40); MCH 30.5 pg (25.7-33.7); MCHC 32.3 g/dl (32.0-35.9); MEAN CELL VOLUME 94.4 fl (80-96); MONO % 9.9 % (3.8-10.2); PHOSPHOROUS 3.4 mg/dL (2.5-4.9); PLATELET COUNT 271 K/MM3 (134-434); RBC 2.94 M/mm3 (4.00-5.60); RDW 14.8 % (11.9-15.9); WHITE BLOOD COUNT 5.1 K/mm3 (4.0-10.0)
[2020-09-02 08:11] LABS: BILIRUBIN,TOTAL 0.3 mg/dL (0.2-1); TOT PROT 5.6 g/dl (6.4-8.2)
[2020-09-02] MEDS: AMINO ACIDS/PROTEIN HYDROLYS 30 ML LIQUID.PKT PO SCH ×2 (08:55→18:19)
[2020-09-02 09:16] LABS: ANISOCYTOSIS 0; MACROCYTOSIS 0; PLATELET ESTIMATE NORMAL
[2020-09-02] MEDS: PANTOPRAZOLE SODIUM 40 MG VIAL IVPUSH SCH (09:56)
[2020-09-02] MEDS: ALLOPURINOL 100 MG TABLET (FP) PO SCH (09:57)
[2020-09-02] MEDS: APIXABAN 5 MG TABLET PO SCH ×2 (09:57→21:15)
[2020-09-02] MEDS ORDERED: PT OWN MED DRAWER 7, Y5N ONE ×3 (14:26→21:04)
[2020-09-02] MEDS ORDERED: POTASSIUM CHLORIDE ORAL LIQUID 20 MEQ/15 ML PO ONE (14:30)
[2020-09-02] MEDS ORDERED: FUROSEMIDE 40 MG/4 ML INJECTABLE VIAL IVPUSH ONE (14:45)
[2020-09-02] MEDS ORDERED: ACETAMINOPHEN 1000 MG/100 ML VIAL (NON FORMULARY) IVPB ONE (19:42)
[2020-09-02 20:42] LABS: EPI CELLS 8 /uL (0-25.1); HYALINE CASTS 1 /uL (0-3.1); PH,URINE 6.5 (5.0-8.0); URINE APPEARANCE CLEAR; URINE BACTERIA 2 /uL (0-1359); URINE BILIRUBIN NEGATIVE (NEGATIVE); URINE COLOR YELLOW; URINE GLUCOSE (UA) NEGATIVE (NEGATIVE); URINE KETONE NEGATIVE (NEGATIVE); URINE LEUK ESTERASE NEGATIVE (NEGATIVE); URINE NITRITE NEGATIVE (NEGATIVE); URINE PROTEIN NEGATIVE (NEGATIVE); URINE RBC 22 /uL (0-23.9); URINE UROBILINOGEN 0.2 mg/dL (0.2-1.0)
[2020-09-02] MEDS: SENNOSIDES 8.8 MG/5 ML BULK BOTTLE PO SCH (21:15)
[2020-09-02 22:25] LABS: URINE WBC 90.1 /uL (0-25.8); YEAST FEW (NEGATIVE)
[2020-09-03] MEDS ORDERED: LACTATED RINGERS SOLUTION 1000 ML INFUS.BAG IV ONE ×2 (02:31→21:19)
[2020-09-03] MEDS ORDERED: PT OWN MED DRAWER 7, Y5N ONE ×4 (05:10→13:50)
[2020-09-03] MEDS: ACYCLOVIR 400 MG TABLET PO SCH ×2 (06:08→13:36)
[2020-09-03] MEDS: ACETAMINOPHEN 325 MG TABLET (FP) PO PRN ×2 (06:08→10:08)
[2020-09-03 07:32] LABS: POTASSIUM 3.6 mmol/L (3.5-5.1)
[2020-09-03 07:34] LABS: ALBUMIN 1.7 g/dl (3.4-5.0); BLOOD UREA NITROGEN 32.9 mg/dL (7-18); CALCIUM 7.9 mg/dL (8.5-10.1); MAGNESIUM 1.6 mg/dL (1.8-2.4)
[2020-09-03 07:35] LABS: HEMATOCRIT 24.6 % (35.4-49); HEMOGLOBIN 8.1 GM/dL (11.7-16.9); MCH 31.1 pg (25.7-33.7); MCHC 32.9 g/dl (32.0-35.9); MEAN CELL VOLUME 94.6 fl (80-96); MEAN PLT VOLUME 8.1 fl (7.5-11.1); PLATELET COUNT 334 K/MM3 (134-434); RDW 15.4 % (11.9-15.9); WHITE BLOOD COUNT 9.9 K/mm3 (4.0-10.0)
[2020-09-03 07:38] LABS: CREATININE 2.2 mg/dL (0.55-1.3); PHOSPHOROUS 3.3 mg/dL (2.5-4.9)
[2020-09-03 07:39] LABS: BILIRUBIN,TOTAL 0.3 mg/dL (0.2-1); TOT PROT 5.5 g/dl (6.4-8.2)
[2020-09-03] MEDS ORDERED: APIXABAN 5 MG TABLET PO SCH (08:43)
[2020-09-03] MEDS: AMINO ACIDS/PROTEIN HYDROLYS 30 ML LIQUID.PKT PO SCH ×2 (09:14→17:21)
[2020-09-03] MEDS: ALLOPURINOL 100 MG TABLET (FP) PO SCH (09:15)
[2020-09-03] MEDS: PANTOPRAZOLE SODIUM 40 MG VIAL IVPUSH SCH ×2 (09:17→22:21)
[2020-09-03 17:42] LABS: HEMATOCRIT 24.2 % (35.4-49); HEMOGLOBIN 7.9 GM/dL (11.7-16.9); MCH 30.8 pg (25.7-33.7); MCHC 32.6 g/dl (32.0-35.9); MEAN CELL VOLUME 94.6 fl (80-96); MEAN PLT VOLUME 7.6 fl (7.5-11.1); PLATELET COUNT 332 K/MM3 (134-434); RBC 2.56 M/mm3 (4.00-5.60); RDW 15.2 % (11.9-15.9); WHITE BLOOD COUNT 9.5 K/mm3 (4.0-10.0)
[2020-09-03 20:31] LABS: INR 2.17 (0.83-1.09); PROTHROMBIN TIME (PATIENT) 26.1 SEC (9.7-13.0)
[2020-09-03] MEDS ORDERED: ACETAMINOPHEN 1000 MG/100 ML VIAL (NON FORMULARY) IVPB ONE (21:04)
[2020-09-03 23:15] LABS: BASO % 0.3 % (0-2.0); EOS % 4.1 % (0-4.5); HEMATOCRIT 23.6 % (35.4-49); HEMOGLOBIN 7.8 GM/dL (11.7-16.9); LYMPH % 18.5 % (8-40); MCH 31.5 pg (25.7-33.7); MEAN CELL VOLUME 95.5 fl (80-96); MEAN PLT VOLUME 7.8 fl (7.5-11.1); MONO % 6.5 % (3.8-10.2); NEUT % 70.6 % (42.8-82.8); PLATELET COUNT 360 K/MM3 (134-434); RBC 2.47 M/mm3 (4.00-5.60); RDW 15.2 % (11.9-15.9); WHITE BLOOD COUNT 7.6 K/mm3 (4.0-10.0)
[2020-09-03 23:39] LABS: POTASSIUM 3.3 mmol/L (3.5-5.1)
[2020-09-03 23:40] LABS: CALCIUM 8.3 mg/dL (8.5-10.1)
[2020-09-03 23:42] LABS: BLOOD UREA NITROGEN 30.3 mg/dL (7-18)
[2020-09-03 23:45] LABS: BILIRUBIN,TOTAL 0.3 mg/dL (0.2-1); CREATININE 2.1 mg/dL (0.55-1.3); TOT PROT 6.3 g/dl (6.4-8.2)
[2020-09-04] MEDS: ACYCLOVIR 400 MG TABLET PO SCH ×4 (02:29→22:03)
[2020-09-04] MEDS: ACETAMINOPHEN 325 MG TABLET (FP) PO PRN ×2 (04:22→14:19)
[2020-09-04 06:47] LABS: HEMATOCRIT 24.8 % (35.4-49); MCH 30.5 pg (25.7-33.7); MCHC 32.5 g/dl (32.0-35.9); MEAN CELL VOLUME 93.8 fl (80-96); MEAN PLT VOLUME 7.7 fl (7.5-11.1); PLATELET COUNT 411 K/MM3 (134-434); RBC 2.64 M/mm3 (4.00-5.60); RDW 16.6 % (11.9-15.9); WHITE BLOOD COUNT 9.6 K/mm3 (4.0-10.0)
[2020-09-04 07:16] LABS: POTASSIUM 3.4 mmol/L (3.5-5.1)
[2020-09-04 07:20] LABS: BLOOD UREA NITROGEN 27.4 mg/dL (7-18)
[2020-09-04 07:22] LABS: CALCIUM 8.6 mg/dL (8.5-10.1)
[2020-09-04 07:24] LABS: PHOSPHOROUS 3.6 mg/dL (2.5-4.9)
[2020-09-04 07:26] LABS: BILIRUBIN,TOTAL 0.6 mg/dL (0.2-1); MAGNESIUM 1.8 mg/dL (1.8-2.4); TOT PROT 6.4 g/dl (6.4-8.2)
[2020-09-04] MEDS: AMINO ACIDS/PROTEIN HYDROLYS 30 ML LIQUID.PKT PO SCH ×2 (09:00→18:46)
[2020-09-04] MEDS ORDERED: POTASSIUM CHLORIDE TABS 20 MEQ TABLET.ER (FP) PO ONE (09:10)
[2020-09-04] MEDS: PANTOPRAZOLE SODIUM 40 MG VIAL IVPUSH SCH ×2 (10:06→22:02)
[2020-09-04] MEDS: ALLOPURINOL 100 MG TABLET (FP) PO SCH (10:06)
[2020-09-04 10:34] LABS: INR 1.52 (0.83-1.09); PROTHROMBIN TIME (PATIENT) 18.2 SEC (9.7-13.0)
[2020-09-04 10:37] LABS: ACTIVATED PTT 42.9 SECONDS (25.2-36.5)
[2020-09-04] MEDS ORDERED: PT OWN MED DRAWER 7, Y5N ONE ×2 (14:18→21:12)
[2020-09-05] MEDS: ACETAMINOPHEN 325 MG TABLET (FP) PO PRN (06:10)
[2020-09-05] MEDS: ACYCLOVIR 400 MG TABLET PO SCH ×2 (06:11→13:39)
[2020-09-05] MEDS ORDERED: KCL 10 MEQ IVPB 10 MEQ/100 ML INFUS.BAG IVPB SCH (08:00)
[2020-09-05] MEDS ORDERED: MORPHINE SULFATE 2 MG/ML VIAL IVPUSH ONE (08:46)
[2020-09-05] MEDS: AMINO ACIDS/PROTEIN HYDROLYS 30 ML LIQUID.PKT PO SCH ×2 (08:58→16:58)
[2020-09-05] MEDS: ALLOPURINOL 100 MG TABLET (FP) PO SCH (09:33)
[2020-09-05] MEDS: PANTOPRAZOLE SODIUM 40 MG VIAL IVPUSH SCH ×2 (09:33→21:21)
[2020-09-05] MEDS ORDERED: MORPHINE SULFATE 2 MG/ML VIAL IVPUSH PRN (09:43)
[2020-09-05 11:24] LABS: BASO % 0.3 % (0-2.0); EOS % 3.8 % (0-4.5); HEMATOCRIT 25.2 % (35.4-49); HEMOGLOBIN 8.1 GM/dL (11.7-16.9); MCH 30.6 pg (25.7-33.7); MCHC 32.2 g/dl (32.0-35.9); MEAN PLT VOLUME 7.8 fl (7.5-11.1); MONO % 7.6 % (3.8-10.2); NEUT % 74.3 % (42.8-82.8); PLATELET COUNT 352 K/MM3 (134-434); RBC 2.65 M/mm3 (4.00-5.60); RDW 16.4 % (11.9-15.9); WHITE BLOOD COUNT 8.4 K/mm3 (4.0-10.0)
[2020-09-05 11:34] LABS: INR 1.31 (0.83-1.09)
[2020-09-05 11:48] LABS: POTASSIUM 3.4 mmol/L (3.5-5.1)
[2020-09-05 11:52] LABS: ALBUMIN 1.8 g/dl (3.4-5.0); BLOOD UREA NITROGEN 21.2 mg/dL (7-18); CALCIUM 8.3 mg/dL (8.5-10.1); MAGNESIUM 1.7 mg/dL (1.8-2.4)
[2020-09-05 11:55] LABS: CREATININE 1.8 mg/dL (0.55-1.3); PHOSPHOROUS 3.5 mg/dL (2.5-4.9)
[2020-09-05 11:56] LABS: BILIRUBIN,TOTAL 0.3 mg/dL (0.2-1); TOT PROT 5.9 g/dl (6.4-8.2)
[2020-09-05] MEDS ORDERED: MAGNESIUM 1GM/D5W - 1 GM/100 ML IVPB IVPB ONE (12:06)
[2020-09-05] MEDS ORDERED: POTASSIUM CHLORIDE TABS 20 MEQ TABLET.ER (FP) PO ONE (15:06)
[2020-09-06 07:07] LABS: BASO % 0.6 % (0-2.0); HEMATOCRIT 24.4 % (35.4-49); HEMOGLOBIN 7.9 GM/dL (11.7-16.9); LYMPH % 12.1 % (8-40); MCH 30.2 pg (25.7-33.7); MCHC 32.2 g/dl (32.0-35.9); MEAN CELL VOLUME 93.6 fl (80-96); MEAN PLT VOLUME 8.1 fl (7.5-11.1); MONO % 8.7 % (3.8-10.2); NEUT % 76.6 % (42.8-82.8); PLATELET COUNT 399 K/MM3 (134-434); POTASSIUM 4.1 mmol/L (3.5-5.1); RBC 2.61 M/mm3 (4.00-5.60); RDW 15.8 % (11.9-15.9); WHITE BLOOD COUNT 9.4 K/mm3 (4.0-10.0)
[2020-09-06 07:09] LABS: ALBUMIN 1.8 g/dl (3.4-5.0); CALCIUM 8.3 mg/dL (8.5-10.1); MAGNESIUM 1.7 mg/dL (1.8-2.4)
[2020-09-06 07:10] LABS: BLOOD UREA NITROGEN 21.8 mg/dL (7-18)
[2020-09-06 07:12] LABS: CREATININE 1.8 mg/dL (0.55-1.3); PHOSPHOROUS 3.5 mg/dL (2.5-4.9)
[2020-09-06 07:14] LABS: BILIRUBIN,TOTAL 0.3 mg/dL (0.2-1)
[2020-09-06] MEDS ORDERED: MAGNESIUM SULF 50% (8.12 MEQ/2 ML-1 GM VIAL) IVPB ONE (08:21)
[2020-09-06] MEDS ORDERED: MAGNESIUM 1GM/D5W - 1 GM/100 ML IVPB IVPB ONE (08:30)
[2020-09-06] MEDS: ALLOPURINOL 100 MG TABLET (FP) PO SCH (09:04)
[2020-09-06] MEDS: PANTOPRAZOLE SODIUM 40 MG VIAL IVPUSH SCH ×2 (09:04→22:44)
[2020-09-06] MEDS: AMINO ACIDS/PROTEIN HYDROLYS 30 ML LIQUID.PKT PO SCH ×2 (09:04→17:51)
[2020-09-06] MEDS: ACETAMINOPHEN 325 MG TABLET (FP) PO PRN ×2 (15:56→22:41)
[2020-09-06] MEDS ORDERED: BISACODYL 5 MG TABLET.DR (FP) PO ONE (16:00)
[2020-09-06] MEDS ORDERED: PEG 3350/NA SULF BICARB CL/KCL 4000 ML SOLN.RECON PO ONE (17:00)
[2020-09-07 06:17] LABS: BASO % 0.2 % (0-2.0); EOS % 1.6 % (0-4.5); HEMATOCRIT 25.5 % (35.4-49); HEMOGLOBIN 8.4 GM/dL (11.7-16.9); LYMPH % 11.9 % (8-40); MCH 30.6 pg (25.7-33.7); MEAN CELL VOLUME 92.6 fl (80-96); MEAN PLT VOLUME 7.6 fl (7.5-11.1); MONO % 9.5 % (3.8-10.2); NEUT % 76.8 % (42.8-82.8); PLATELET COUNT 394 K/MM3 (134-434); RBC 2.76 M/mm3 (4.00-5.60); RDW 15.5 % (11.9-15.9); WHITE BLOOD COUNT 9.8 K/mm3 (4.0-10.0)
[2020-09-07 06:23] LABS: INR 1.2 (0.83-1.09); PROTHROMBIN TIME (PATIENT) 14.4 SEC (9.7-13.0)
[2020-09-07 06:35] LABS: POTASSIUM 3.5 mmol/L (3.5-5.1)
[2020-09-07 06:37] LABS: ALBUMIN 1.8 g/dl (3.4-5.0); CALCIUM 7.9 mg/dL (8.5-10.1)
[2020-09-07 06:38] LABS: BLOOD UREA NITROGEN 19.9 mg/dL (7-18); MAGNESIUM 1.7 mg/dL (1.8-2.4)
[2020-09-07 06:40] LABS: CREATININE 1.8 mg/dL (0.55-1.3)
[2020-09-07 06:41] LABS: PHOSPHOROUS 3.8 mg/dL (2.5-4.9)
[2020-09-07 06:42] LABS: BILIRUBIN,TOTAL 0.4 mg/dL (0.2-1); TOT PROT 5.8 g/dl (6.4-8.2)
[2020-09-07] MEDS ORDERED: MAGNESIUM SULF 50% (8.12 MEQ/2 ML-1 GM VIAL) IVPB ONE (07:43)
[2020-09-07] MEDS ORDERED: MAGNESIUM 1GM/D5W - 1 GM/100 ML IVPB IVPB ONE (08:00)
[2020-09-07] MEDS: AMINO ACIDS/PROTEIN HYDROLYS 30 ML LIQUID.PKT PO SCH ×2 (08:28→17:18)
[2020-09-07] MEDS: PANTOPRAZOLE SODIUM 40 MG VIAL IVPUSH SCH ×2 (09:37→21:36)
[2020-09-07] MEDS: ALLOPURINOL 100 MG TABLET (FP) PO SCH (09:37)
[2020-09-07] MEDS ORDERED: MIDAZOLAM HCL 2 MG/2 ML SINGLE DOSE VIAL ONE (12:56)
[2020-09-07] MEDS ORDERED: EPINEPHrine 1:10,000 (P-F SYR) 1 MG/10 ML DISP.SYRIN IVPUSH ONE (14:55)
[2020-09-07] MEDS ORDERED: EPINEPHrine 1:10,000 (P-F SYR) 1 MG/10 ML DISP.SYRIN ONE (15:24)
[2020-09-07] MEDS: ACETAMINOPHEN 325 MG TABLET (FP) PO PRN (21:47)
[2020-09-08 06:34] LABS: BASO % 0.4 % (0-2.0); EOS % 1.2 % (0-4.5); HEMOGLOBIN 8.4 GM/dL (11.7-16.9); LYMPH % 10.8 % (8-40); MCH 29.8 pg (25.7-33.7); MCHC 32.4 g/dl (32.0-35.9); MEAN CELL VOLUME 91.8 fl (80-96); MEAN PLT VOLUME 7.7 fl (7.5-11.1); MONO % 9.5 % (3.8-10.2); NEUT % 78.1 % (42.8-82.8); PLATELET COUNT 434 K/MM3 (134-434); RBC 2.83 M/mm3 (4.00-5.60); RDW 15.4 % (11.9-15.9); WHITE BLOOD COUNT 11.2 K/mm3 (4.0-10.0)
[2020-09-08] MEDS: ACETAMINOPHEN 325 MG TABLET (FP) PO PRN ×2 (06:36→18:54)
[2020-09-08 06:44] LABS: POTASSIUM 3.1 mmol/L (3.5-5.1)
[2020-09-08 06:46] LABS: ALBUMIN 1.8 g/dl (3.4-5.0); CALCIUM 7.9 mg/dL (8.5-10.1)
[2020-09-08 06:47] LABS: BLOOD UREA NITROGEN 15.8 mg/dL (7-18); MAGNESIUM 1.5 mg/dL (1.8-2.4)
[2020-09-08 06:50] LABS: CREATININE 1.6 mg/dL (0.55-1.3); PHOSPHOROUS 3.4 mg/dL (2.5-4.9)
[2020-09-08 06:51] LABS: BILIRUBIN,TOTAL 0.3 mg/dL (0.2-1)
[2020-09-08] MEDS ORDERED: MAGNESIUM SULF 50% (8.12 MEQ/2 ML-1 GM VIAL) IVPB ONE (07:24)
[2020-09-08] MEDS ORDERED: POTASSIUM CHLORIDE ORAL LIQUID 20 MEQ/15 ML PO ONE ×2 (07:24→20:00)
[2020-09-08] MEDS ORDERED: MAGNESIUM SULFATE IN WATER 2 GM/50 ML IVPB IVPB ONE (07:30)
[2020-09-08] MEDS: AMINO ACIDS/PROTEIN HYDROLYS 30 ML LIQUID.PKT PO SCH ×3 (08:02→17:49)
[2020-09-08] MEDS: KCL 10 MEQ IVPB 10 MEQ/100 ML INFUS.BAG IVPB SCH ×3 (09:16→12:07)
[2020-09-08] MEDS: PANTOPRAZOLE SODIUM 40 MG VIAL IVPUSH SCH ×2 (09:37→21:58)
[2020-09-08] MEDS: ALLOPURINOL 100 MG TABLET (FP) PO SCH (09:37)
[2020-09-08] MEDS: APIXABAN 5 MG TABLET PO SCH ×2 (12:07→21:58)
[2020-09-08] MEDS ORDERED: FUROSEMIDE 40 MG TABLET (FP) PO ONE (12:17)
[2020-09-08 15:42] VITALS: BMI 42.4
[2020-09-09] MEDS: ACETAMINOPHEN 325 MG TABLET (FP) PO PRN ×3 (05:50→21:49)
[2020-09-09 05:59] LABS: BASO % 0.3 % (0-2.0); EOS % 1.4 % (0-4.5); HEMATOCRIT 25.1 % (35.4-49); HEMOGLOBIN 8.2 GM/dL (11.7-16.9); LYMPH % 12.9 % (8-40); MCH 30.3 pg (25.7-33.7); MCHC 32.7 g/dl (32.0-35.9); MEAN CELL VOLUME 92.7 fl (80-96); MEAN PLT VOLUME 7.5 fl (7.5-11.1); MONO % 9.1 % (3.8-10.2); NEUT % 76.3 % (42.8-82.8); PLATELET COUNT 402 K/MM3 (134-434); RBC 2.71 M/mm3 (4.00-5.60); RDW 14.8 % (11.9-15.9)
[2020-09-09 06:17] LABS: POTASSIUM 3.3 mmol/L (3.5-5.1)
[2020-09-09 06:19] LABS: ALBUMIN 1.8 g/dl (3.4-5.0); BLOOD UREA NITROGEN 13.7 mg/dL (7-18); CALCIUM 8.2 mg/dL (8.5-10.1)
[2020-09-09 06:20] LABS: MAGNESIUM 1.9 mg/dL (1.8-2.4)
[2020-09-09 06:22] LABS: CREATININE 1.5 mg/dL (0.55-1.3)
[2020-09-09 06:23] LABS: PHOSPHOROUS 3.1 mg/dL (2.5-4.9)
[2020-09-09 06:24] LABS: BILIRUBIN,TOTAL 0.3 mg/dL (0.2-1); TOT PROT 6.4 g/dl (6.4-8.2)
[2020-09-09] MEDS ORDERED: ONDANSETRON 4 MG/2 ML VIAL IVPUSH PRN (07:29)
[2020-09-09] MEDS ORDERED: POTASSIUM CHLORIDE ORAL LIQUID 20 MEQ/15 ML PO ONE ×2 (08:00→22:00)
[2020-09-09] MEDS ORDERED: PT OWN MED DRAWER 7, Y5N ONE ×2 (08:57→09:44)
[2020-09-09] MEDS: AMINO ACIDS/PROTEIN HYDROLYS 30 ML LIQUID.PKT PO SCH ×2 (09:15→18:13)
[2020-09-09] MEDS: APIXABAN 5 MG TABLET PO SCH ×2 (09:16→21:49)
[2020-09-09] MEDS: ALLOPURINOL 100 MG TABLET (FP) PO SCH (09:16)
[2020-09-09] MEDS: PANTOPRAZOLE SODIUM 40 MG VIAL IVPUSH SCH ×2 (09:16→21:49)
[2020-09-09] MEDS: KCL 10 MEQ IVPB 10 MEQ/100 ML INFUS.BAG IVPB SCH ×3 (09:27→12:12)
[2020-09-09] MEDS: FUROSEMIDE 40 MG/4 ML INJECTABLE VIAL IVPUSH SCH (15:29)
[2020-09-10 07:22] LABS: BASO % 0.4 % (0-2.0); EOS % 1.5 % (0-4.5); HEMATOCRIT 25.2 % (35.4-49); HEMOGLOBIN 8.2 GM/dL (11.7-16.9); LYMPH % 14.4 % (8-40); MCH 30.1 pg (25.7-33.7); MCHC 32.5 g/dl (32.0-35.9); MEAN CELL VOLUME 92.5 fl (80-96); MEAN PLT VOLUME 7.6 fl (7.5-11.1); MONO % 8.7 % (3.8-10.2); PLATELET COUNT 421 K/MM3 (134-434); RBC 2.73 M/mm3 (4.00-5.60); RDW 14.9 % (11.9-15.9)
[2020-09-10 07:46] LABS: POTASSIUM 3.7 mmol/L (3.5-5.1)
[2020-09-10 07:48] LABS: ALBUMIN 1.9 g/dl (3.4-5.0); CALCIUM 8.3 mg/dL (8.5-10.1); MAGNESIUM 1.7 mg/dL (1.8-2.4)
[2020-09-10 07:51] LABS: CREATININE 1.5 mg/dL (0.55-1.3); PHOSPHOROUS 4.2 mg/dL (2.5-4.9)
[2020-09-10 07:53] LABS: BILIRUBIN,TOTAL 0.3 mg/dL (0.2-1); TOT PROT 6.5 g/dl (6.4-8.2)
[2020-09-10] MEDS: AMINO ACIDS/PROTEIN HYDROLYS 30 ML LIQUID.PKT PO SCH ×2 (08:46→17:23)
[2020-09-10] MEDS: ACETAMINOPHEN 325 MG TABLET (FP) PO PRN ×2 (08:47→19:30)
[2020-09-10] MEDS ORDERED: MAGNESIUM 1GM/D5W 100ML - 100 ML IVPB IVPB ONE (09:00)
[2020-09-10] MEDS: FUROSEMIDE 40 MG/4 ML INJECTABLE VIAL IVPUSH SCH (10:12)
[2020-09-10] MEDS: APIXABAN 5 MG TABLET PO SCH ×2 (10:12→21:00)
[2020-09-10] MEDS: PANTOPRAZOLE SODIUM 40 MG VIAL IVPUSH SCH ×2 (10:12→21:00)
[2020-09-10] MEDS: ALLOPURINOL 100 MG TABLET (FP) PO SCH (10:13)
[2020-09-10] MEDS: MORPHINE SULFATE 2 MG/ML VIAL IVPUSH PRN ×3 (11:00→21:01)
[2020-09-10 11:12] LABS: ANISOCYTOSIS 1+; MACROCYTOSIS 0; PLATELET ESTIMATE NORMAL
[2020-09-10] MEDS ORDERED: POTASSIUM CHLORIDE ORAL LIQUID 20 MEQ/15 ML PO ONE (17:08)
[2020-09-10] MEDS ORDERED: FUROSEMIDE 40 MG/4 ML INJECTABLE VIAL IVPUSH ONE (17:08)
[2020-09-11] MEDS: MORPHINE SULFATE 2 MG/ML VIAL IVPUSH PRN ×3 (01:41→16:37)
[2020-09-11 07:04] LABS: HEMATOCRIT 27.4 % (35.4-49); HEMOGLOBIN 9.2 GM/dL (11.7-16.9); MCHC 33.4 g/dl (32.0-35.9); MEAN CELL VOLUME 92.7 fl (80-96); MEAN PLT VOLUME 7.7 fl (7.5-11.1); PLATELET COUNT 468 K/MM3 (134-434); RBC 2.96 M/mm3 (4.00-5.60); RDW 14.8 % (11.9-15.9); WHITE BLOOD COUNT 9.4 K/mm3 (4.0-10.0)
[2020-09-11 07:24] LABS: POTASSIUM 4.2 mmol/L (3.5-5.1)
[2020-09-11 07:25] LABS: CALCIUM 8.8 mg/dL (8.5-10.1)
[2020-09-11 07:26] LABS: BLOOD UREA NITROGEN 21.4 mg/dL (7-18); MAGNESIUM 1.8 mg/dL (1.8-2.4)
[2020-09-11 07:29] LABS: CREATININE 1.6 mg/dL (0.55-1.3); PHOSPHOROUS 4.3 mg/dL (2.5-4.9)
[2020-09-11] MEDS: AMINO ACIDS/PROTEIN HYDROLYS 30 ML LIQUID.PKT PO SCH ×2 (08:30→16:38)
[2020-09-11] MEDS: FUROSEMIDE 40 MG/4 ML INJECTABLE VIAL IVPUSH SCH (09:39)
[2020-09-11] MEDS: APIXABAN 5 MG TABLET PO SCH ×2 (09:39→21:31)
[2020-09-11] MEDS: PANTOPRAZOLE SODIUM 40 MG VIAL IVPUSH SCH ×2 (09:39→21:32)
[2020-09-11] MEDS: ALLOPURINOL 100 MG TABLET (FP) PO SCH (09:40)
[2020-09-11] MEDS: ACETAMINOPHEN 325 MG TABLET (FP) PO PRN ×2 (13:58→20:40)
[2020-09-11] MEDS ORDERED: PT OWN MED DRAWER 7, Y5N ONE (16:54)
[2020-09-12] MEDS: ACETAMINOPHEN 325 MG TABLET (FP) PO PRN ×4 (06:20→21:24)
[2020-09-12] MEDS: FUROSEMIDE 40 MG/4 ML INJECTABLE VIAL IVPUSH SCH (09:11)
[2020-09-12] MEDS: PANTOPRAZOLE SODIUM 40 MG VIAL IVPUSH SCH ×2 (09:11→21:26)
[2020-09-12] MEDS: ALLOPURINOL 100 MG TABLET (FP) PO SCH (09:11)
[2020-09-12] MEDS: APIXABAN 5 MG TABLET PO SCH ×2 (09:12→21:26)
[2020-09-12] MEDS: AMINO ACIDS/PROTEIN HYDROLYS 30 ML LIQUID.PKT PO SCH ×2 (09:12→17:27)
[2020-09-12 21:36] LABS: EPI CELLS 5 /uL (0-25.1); HYALINE CASTS 1 /uL (0-3.1); PH,URINE 6.5 (5.0-8.0); URINE APPEARANCE TURBID; URINE BACTERIA >9,000 /uL (0-1359); URINE BILIRUBIN NEGATIVE (NEGATIVE); URINE COLOR YELLOW; URINE GLUCOSE (UA) NEGATIVE (NEGATIVE); URINE KETONE NEGATIVE (NEGATIVE); URINE LEUK ESTERASE 3+ (NEGATIVE); URINE NITRITE NEGATIVE (NEGATIVE); URINE PROTEIN TRACE (NEGATIVE); URINE RBC 18 /uL (0-23.9); URINE UROBILINOGEN 0.2 mg/dL (0.2-1.0); URINE WBC 2853 /uL (0-25.8)
[2020-09-13] MEDS: PIPERACILLIN/TAZOB 3.375 GM 3.375 GM in DEXTROSE 5%-WATER - 50 ML IVPB SCH ×4 (01:00→17:38)
[2020-09-13] MEDS ORDERED: DEXTROSE 5%-WATER - 50 ML IVPB ONE ×3 (01:04→16:25)
[2020-09-13] MEDS ORDERED: PIPERACILLIN/TAZOBACTAM 3.375 GM VIAL IVPB ONE ×3 (01:04→16:24)
[2020-09-13 07:26] LABS: BASO % 0.6 % (0-2.0); EOS % 1.9 % (0-4.5); HEMATOCRIT 23.6 % (35.4-49); HEMOGLOBIN 7.9 GM/dL (11.7-16.9); LYMPH % 13.4 % (8-40); MCH 30.4 pg (25.7-33.7); MCHC 33.4 g/dl (32.0-35.9); MEAN CELL VOLUME 91.2 fl (80-96); MEAN PLT VOLUME 7.8 fl (7.5-11.1); MONO % 6.9 % (3.8-10.2); NEUT % 77.2 % (42.8-82.8); PLATELET COUNT 435 K/MM3 (134-434); RBC 2.59 M/mm3 (4.00-5.60); RDW 14.6 % (11.9-15.9); WHITE BLOOD COUNT 10.5 K/mm3 (4.0-10.0)
[2020-09-13 07:42] LABS: POTASSIUM 3.6 mmol/L (3.5-5.1)
[2020-09-13 07:46] LABS: CALCIUM 8.7 mg/dL (8.5-10.1)
[2020-09-13 07:47] LABS: MAGNESIUM 1.8 mg/dL (1.8-2.4)
[2020-09-13 07:49] LABS: CREATININE 1.6 mg/dL (0.55-1.3)
[2020-09-13 07:51] LABS: BILIRUBIN,TOTAL 0.4 mg/dL (0.2-1); TOT PROT 6.8 g/dl (6.4-8.2)
[2020-09-13] MEDS: ALLOPURINOL 100 MG TABLET (FP) PO SCH (09:42)
[2020-09-13] MEDS: PANTOPRAZOLE SODIUM 40 MG VIAL IVPUSH SCH ×2 (09:42→21:50)
[2020-09-13] MEDS: FUROSEMIDE 40 MG/4 ML INJECTABLE VIAL IVPUSH SCH (09:42)
[2020-09-13] MEDS: APIXABAN 5 MG TABLET PO SCH ×2 (09:42→21:50)
[2020-09-13] MEDS: AMINO ACIDS/PROTEIN HYDROLYS 30 ML LIQUID.PKT PO SCH ×2 (09:43→17:38)
[2020-09-13] MEDS: ACETAMINOPHEN 325 MG TABLET (FP) PO PRN ×4 (09:47→21:50)
[2020-09-13 10:44] LABS: ANISOCYTOSIS 1+; MACROCYTOSIS 1+; ROULEAU 1+
[2020-09-13 10:46] LABS: PLATELET ESTIMATE ADEQUATE
[2020-09-14] MEDS ORDERED: PIPERACILLIN/TAZOBACTAM 3.375 GM VIAL IVPB ONE ×3 (03:36→16:37)
[2020-09-14] MEDS ORDERED: DEXTROSE 5%-WATER - 50 ML IVPB ONE ×3 (03:36→16:38)
[2020-09-14] MEDS: PIPERACILLIN/TAZOB 3.375 GM 3.375 GM in DEXTROSE 5%-WATER - 50 ML IVPB SCH ×4 (04:16→17:09)
[2020-09-14] MEDS: ACETAMINOPHEN 325 MG TABLET (FP) PO PRN ×3 (06:41→21:22)
[2020-09-14 07:11] LABS: BASO % 0.5 % (0-2.0); EOS % 1.8 % (0-4.5); HEMATOCRIT 23.6 % (35.4-49); HEMOGLOBIN 7.9 GM/dL (11.7-16.9); LYMPH % 11.4 % (8-40); MCH 30.5 pg (25.7-33.7); MCHC 33.3 g/dl (32.0-35.9); MEAN CELL VOLUME 91.4 fl (80-96); MEAN PLT VOLUME 7.8 fl (7.5-11.1); MONO % 6.9 % (3.8-10.2); NEUT % 79.4 % (42.8-82.8); PLATELET COUNT 481 K/MM3 (134-434); RBC 2.58 M/mm3 (4.00-5.60); RDW 14.2 % (11.9-15.9); WHITE BLOOD COUNT 10.6 K/mm3 (4.0-10.0)
[2020-09-14 07:31] LABS: POTASSIUM 3.6 mmol/L (3.5-5.1)
[2020-09-14 07:36] LABS: ALBUMIN 2.1 g/dl (3.4-5.0); BLOOD UREA NITROGEN 28.1 mg/dL (7-18); CALCIUM 8.9 mg/dL (8.5-10.1)
[2020-09-14 07:39] LABS: PHOSPHOROUS 4.2 mg/dL (2.5-4.9)
[2020-09-14 07:40] LABS: BILIRUBIN,TOTAL 0.4 mg/dL (0.2-1); TOT PROT 7.2 g/dl (6.4-8.2)
[2020-09-14 07:50] LABS: CREATININE 1.6 mg/dL (0.55-1.3)
[2020-09-14] MEDS: AMINO ACIDS/PROTEIN HYDROLYS 30 ML LIQUID.PKT PO SCH ×2 (09:26→17:10)
[2020-09-14] MEDS: APIXABAN 5 MG TABLET PO SCH ×2 (09:26→21:22)
[2020-09-14] MEDS: ALLOPURINOL 100 MG TABLET (FP) PO SCH (09:27)
[2020-09-14] MEDS: PANTOPRAZOLE SODIUM 40 MG VIAL IVPUSH SCH ×2 (09:27→21:22)
[2020-09-14] MEDS ORDERED: TORSEMIDE 20 MG TABLET (FP) PO SCH ×2 (10:00→12:31)
[2020-09-14 10:09] LABS: PLATELET ESTIMATE SLT INCREASE
[2020-09-15] MEDS ORDERED: DEXTROSE 5%-WATER - 50 ML IVPB ONE ×2 (01:41→08:49)
[2020-09-15] MEDS ORDERED: PIPERACILLIN/TAZOBACTAM 3.375 GM VIAL IVPB ONE ×2 (01:41→08:49)
[2020-09-15] MEDS: PIPERACILLIN/TAZOB 3.375 GM 3.375 GM in DEXTROSE 5%-WATER - 50 ML IVPB SCH ×2 (03:00→09:39)
[2020-09-15 06:08] VITALS: PULSE 98
[2020-09-15 07:28] LABS: BASO % 0.5 % (0-2.0); EOS % 2.1 % (0-4.5); HEMATOCRIT 23.8 % (35.4-49); HEMOGLOBIN 8.1 GM/dL (11.7-16.9); MCH 31.1 pg (25.7-33.7); MCHC 33.9 g/dl (32.0-35.9); MEAN CELL VOLUME 91.7 fl (80-96); MEAN PLT VOLUME 8.2 fl (7.5-11.1); MONO % 7.6 % (3.8-10.2); NEUT % 76.8 % (42.8-82.8); PLATELET COUNT 496 K/MM3 (134-434); RDW 14.7 % (11.9-15.9); WHITE BLOOD COUNT 8.8 K/mm3 (4.0-10.0)
[2020-09-15 07:37] LABS: POTASSIUM 3.3 mmol/L (3.5-5.1)
[2020-09-15 07:53] LABS: ALBUMIN 2.2 g/dl (3.4-5.0)
[2020-09-15 07:54] LABS: BLOOD UREA NITROGEN 30.5 mg/dL (7-18); MAGNESIUM 1.9 mg/dL (1.8-2.4)
[2020-09-15 07:57] LABS: CREATININE 1.7 mg/dL (0.55-1.3); PHOSPHOROUS 4.2 mg/dL (2.5-4.9)
[2020-09-15 07:58] LABS: BILIRUBIN,TOTAL 1.5 mg/dL (0.2-1); TOT PROT 7.2 g/dl (6.4-8.2)
[2020-09-15] MEDS ORDERED: POTASSIUM CHLORIDE TABS 20 MEQ TABLET.ER (FP) PO ONE (08:41)
[2020-09-15] MEDS: AMINO ACIDS/PROTEIN HYDROLYS 30 ML LIQUID.PKT PO SCH (08:54)
[2020-09-15 09:36] VITALS: BP 120/60; TEMP 98.9
[2020-09-15] MEDS: ALLOPURINOL 100 MG TABLET (FP) PO SCH (09:40)
[2020-09-15] MEDS: PANTOPRAZOLE SODIUM 40 MG VIAL IVPUSH SCH (09:55)
[2020-09-15] MEDS: APIXABAN 5 MG TABLET PO SCH (09:55)
[2020-09-15 11:05] LABS: ANISOCYTOSIS 1+; MACROCYTOSIS 0; PLATELET ESTIMATE INCREASED
[2020-09-16] MEDS ORDERED: TORSEMIDE 10 MG TABLET PO SCH (10:00)
== END 2020-09-15 14:11 | DRG 870 ==
LOC: JER 14:15 → JERBED 16:59 → JICU 18:09 → J4W 08-20 18:49 → JICU 08-25 13:11 → J4S 08-29 18:36 → JICU 09-03 19:35 → J4W 09-11 15:05
PROVIDERS: ATTEND Internal Medicine
PROC: 5A1955Z Respiratory Ventilation, Greater than 96 Consecutive Hours (ICD-10-PCS; principal; 2020-08-10)
PROC: 0BH17EZ Insertion of Endotracheal Airway into Trachea, Via Natural or Artificial Opening (ICD-10-PCS; 2020-08-10)
PROC: 05HM33Z Insertion of Infusion Device into Right Internal Jugular Vein, Percutaneous Approach (ICD-10-PCS; 2020-08-10)
PROC: B543ZZA Ultrasonography of Right Jugular Veins, Guidance (ICD-10-PCS; 2020-08-10)
PROC: 0DH673Z Insertion of Infusion Device into Stomach, Via Natural or Artificial Opening (ICD-10-PCS; 2020-08-10)
PROC: 05HN33Z Insertion of Infusion Device into Left Internal Jugular Vein, Percutaneous Approach (ICD-10-PCS; 2020-08-17)
PROC: B544ZZA Ultrasonography of Left Jugular Veins, Guidance (ICD-10-PCS; 2020-08-17)
PROC: 30233N1 Transfusion of Nonautologous Red Blood Cells into Peripheral Vein, Percutaneous Approach (ICD-10-PCS; 2020-09-03)
PROC: 0DJ08ZZ Inspection of Upper Intestinal Tract, Via Natural or Artificial Opening Endoscopic (ICD-10-PCS; 2020-09-07)
PROC: 0DBN8ZX Excision of Sigmoid Colon, Via Natural or Artificial Opening Endoscopic, Diagnostic (ICD-10-PCS; 2020-09-07)
DX: A41.50 Gram-negative sepsis, unspecified (principal); R65.21 Severe sepsis with septic shock; J96.01 Acute respiratory failure with hypoxia; J96.02 Acute respiratory failure with hypercapnia; N17.0 Acute kidney failure with tubular necrosis; Z68.42 Body mass index [BMI] 45.0-49.9, adult; E87.2 Acidosis; I82.4Z2 Acute embolism and thrombosis of unspecified deep veins of left distal lower extremity; K92.1 Melena; C19 Malignant neoplasm of rectosigmoid junction; N39.0 Urinary tract infection, site not specified; C77.9 Secondary and unspecified malignant neoplasm of lymph node, unspecified; K56.609 Unspecified intestinal obstruction, unspecified as to partial versus complete obstruction; Z68.41 Body mass index [BMI] 40.0-44.9, adult; E87.0 Hyperosmolality and hypernatremia; D68.9 Coagulation defect, unspecified; I10 Essential (primary) hypertension; E78.5 Hyperlipidemia, unspecified; M10.9 Gout, unspecified; D72.829 Elevated white blood cell count, unspecified; K57.90 Diverticulosis of intestine, part unspecified, without perforation or abscess without bleeding; K63.5 Polyp of colon; Z85.3 Personal history of malignant neoplasm of breast; K64.8 Other hemorrhoids; E87.70 Fluid overload, unspecified; E66.01 Morbid (severe) obesity due to excess calories; R00.0 Tachycardia, unspecified; E87.6 Hypokalemia; I95.9 Hypotension, unspecified; E83.39 Other disorders of phosphorus metabolism; E87.5 Hyperkalemia; K21.9 Gastro-esophageal reflux disease without esophagitis; D64.9 Anemia, unspecified
CPT/HCPCS: 36415; 36430; 36600; 71045-TC-FY; 71250-TC; 73564-TC-RT-FY; 74018-TC-FY; 74150-TC; 74176-TC; 76700-TC; 76775-TC; 80048; 80053; 80076; 81003; 82040; 82272; 82436; 82565; 82728; 82803; 82962; 83036; 83605; 83615; 83735; 83880; 83930; 83935; 84100; 84133; 84156; 84300; 84484; 84550; 85025; 85027; 85610; 85651; 85730; 86140; 86850; 86900; 86901; 86922; 87040; 87070; 87075; 87077; 87086; 87186; 87205; 88305-TC; 89060; 93005; 93010; 93306-TC; 93970-TC; 94002; 94660; 97162-GP; 99291; C9803; G0008; G0480; J0131; J1100; J1644; J2997; P9058; Q2036; Q9967; U0003

== ENCOUNTER 2021-01-03 04:53 | Day surgery (SDC) | payer OTHER ==
[2020-12-30 16:46] VITALS: BMI 37.7
[2021-01-03 11:46] LABS: HEMATOCRIT 40.5 % (35.4-49); HEMOGLOBIN 13.5 GM/dL (11.7-16.9); MCH 30.5 pg (25.7-33.7); MCHC 33.4 g/dl (32.0-35.9); MEAN CELL VOLUME 91.2 fl (80-96); MEAN PLT VOLUME 8.1 fl (7.5-11.1); PLATELET COUNT 266 K/MM3 (134-434); RBC 4.44 M/mm3 (4.00-5.60); RDW 14.8 % (11.9-15.9); WHITE BLOOD COUNT 9.6 K/mm3 (4.0-10.0)
[2021-01-03 11:57] LABS: INR 1.27 (0.83-1.09); PROTHROMBIN TIME (PATIENT) 15.3 SEC (9.7-13.0)
[2021-01-03 12:07] LABS: POTASSIUM 4.1 mmol/L (3.5-5.1)
[2021-01-03 12:09] LABS: CALCIUM 9.6 mg/dL (8.5-10.1)
[2021-01-03 12:10] LABS: ALBUMIN 3.6 g/dl (3.4-5.0); BLOOD UREA NITROGEN 13.7 mg/dL (7-18)
[2021-01-03 12:13] LABS: CREATININE 1.4 mg/dL (0.55-1.3)
[2021-01-03 12:15] LABS: BILIRUBIN,TOTAL 0.4 mg/dL (0.2-1); TOT PROT 7.1 g/dl (6.4-8.2)
[2021-01-03 12:16] VITALS: BP 128/73; PULSE 118; TEMP 98.7
== END 2021-01-03 13:20 | disposition home or self-care (01) ==
LOC: JASU-ENDO 04:53
PROVIDERS: ATTEND Internal Medicine Cardiovascular Disease
DX: Z53.8 Procedure and treatment not carried out for other reasons (principal)
CPT/HCPCS: 36415; 80053; 85027; 85610; 93005; 93010

== ENCOUNTER 2021-04-14 04:26 | Day surgery (SDC) | payer OTHER ==
[2021-04-08 15:53] VITALS: BMI 39.9
[2021-04-14 13:31] VITALS: TEMP 98
[2021-04-14 14:59] VITALS: BP 102/68; PULSE 94
== END 2021-04-14 14:20 | disposition home or self-care (01) ==
LOC: JASU-ENDO 04:26
PROVIDERS: ATTEND Internal Medicine Gastroenterology
PROC: 0DBL8ZX Excision of Transverse Colon, Via Natural or Artificial Opening Endoscopic, Diagnostic (ICD-10-PCS; 2021-04-14)
PROC: 0DBK8ZX Excision of Ascending Colon, Via Natural or Artificial Opening Endoscopic, Diagnostic (ICD-10-PCS; 2021-04-14)
PROC: 0DBN8ZX Excision of Sigmoid Colon, Via Natural or Artificial Opening Endoscopic, Diagnostic (ICD-10-PCS; principal; 2021-04-14 12:00)
DX: Z12.11 Encounter for screening for malignant neoplasm of colon (principal); D12.2 Benign neoplasm of ascending colon; K63.5 Polyp of colon; K57.30 Diverticulosis of large intestine without perforation or abscess without bleeding; K64.8 Other hemorrhoids; Z85.038 Personal history of other malignant neoplasm of large intestine; Z86.010 Personal history of colon polyps
CPT/HCPCS: 88305-TC

== ENCOUNTER 2021-07-20 04:53 | Day surgery (SDC) | payer OTHER ==
[2021-07-12 16:22] VITALS: BMI 42.7
[2021-07-20] MEDS ORDERED: SODIUM CHLORIDE 500 ML IV SCH (13:00)
[2021-07-20 13:58] VITALS: BP 132/88; PULSE 94; TEMP 98.2
== END 2021-07-20 14:30 | disposition home or self-care (01) ==
LOC: JRADIR 04:53
PROVIDERS: ATTEND Internal Medicine Hematology & Oncology
PROC: 0PB13ZX Excision of 1 to 2 Ribs, Percutaneous Approach, Diagnostic (ICD-10-PCS; principal; 2021-07-20)
PROC: BW24ZZZ Computerized Tomography (CT Scan) of Chest and Abdomen (ICD-10-PCS; 2021-07-20)
DX: C79.51 Secondary malignant neoplasm of bone (principal); C78.5 Secondary malignant neoplasm of large intestine and rectum; C50.921 Malignant neoplasm of unspecified site of right male breast
CPT/HCPCS: 20220; 20225; 87899; 88305-TC; 88311-TC; 88341-TC; 88342-TC

== ENCOUNTER 2021-10-18 07:28 | Day surgery (SDC) | payer OTHER ==
[~2021-10-18 07:28] MED LIST: DENOSUMAB 120 MG/1.7 ML VIAL SQ ONE
[2021-10-18] MEDS ORDERED: DENOSUMAB 120 MG/1.7 ML VIAL SQ ONE (10:15)
[2021-10-18 17:10] VITALS: BP 128/68; PULSE 96; TEMP 99.1
== END 2021-10-18 10:30 | disposition home or self-care (01) ==
LOC: JONCCHEMO 07:28
PROVIDERS: ATTEND Internal Medicine Hematology & Oncology
PROC: 3E013GC Introduction of Other Therapeutic Substance into Subcutaneous Tissue, Percutaneous Approach (ICD-10-PCS; principal; 2021-10-18)
DX: C50.929 Malignant neoplasm of unspecified site of unspecified male breast (principal); C19 Malignant neoplasm of rectosigmoid junction; Z76.89 Persons encountering health services in other specified circumstances
CPT/HCPCS: 96372; J0897

== ENCOUNTER 2021-11-22 08:21 | Day surgery (SDC) | payer OTHER ==
[2021-11-22] MEDS ORDERED: DENOSUMAB 120 MG/1.7 ML VIAL SQ ONE (10:00)
[2021-11-22 10:33] LABS: BASO % 0.4 % (0-2.0); EOS % 0.8 % (0-4.5); HEMATOCRIT 45.2 % (35.4-49); HEMOGLOBIN 15.1 GM/dL (11.7-16.9); LYMPH % 21.7 % (8-40); MCH 31.7 pg (25.7-33.7); MCHC 33.5 g/dl (32.0-35.9); MEAN CELL VOLUME 94.8 fl (80-96); MEAN PLT VOLUME 8.9 fl (7.5-11.1); MONO % 7.6 % (3.8-10.2); NEUT % 69.5 % (42.8-82.8); PLATELET COUNT 204 10^3/uL (134-434); RBC 4.77 M/mm3 (4.00-5.60); RDW 13.7 % (11.9-15.9); WHITE BLOOD COUNT 10.7 K/mm3 (4.0-10.0)
[2021-11-22 10:37] LABS: ALBUMIN 3.4 g/dl (3.4-5.0); BLOOD UREA NITROGEN 31.8 mg/dL (7-18); CALCIUM 9.4 mg/dL (8.5-10.1); MAGNESIUM 2.3 mg/dL (1.8-2.4)
[2021-11-22 10:40] LABS: BILIRUBIN,DIRECT 0.2 mg/dL (0.0-0.2)
[2021-11-22 10:41] LABS: BILIRUBIN,TOTAL 0.5 mg/dL (0.2-1); CREATININE 1.6 mg/dL (0.55-1.3)
[2021-11-22 16:48] VITALS: BP 125/88; PULSE 85; TEMP 99.3
== END 2021-11-22 09:45 | disposition home or self-care (01) ==
LOC: JONCCHEMO 08:21
PROVIDERS: ATTEND Internal Medicine Hematology & Oncology
PROC: 3E013GC Introduction of Other Therapeutic Substance into Subcutaneous Tissue, Percutaneous Approach (ICD-10-PCS; principal; 2021-11-22)
DX: C50.929 Malignant neoplasm of unspecified site of unspecified male breast (principal); C79.51 Secondary malignant neoplasm of bone; C19 Malignant neoplasm of rectosigmoid junction; Z76.89 Persons encountering health services in other specified circumstances
CPT/HCPCS: 36415; 80048; 80076; 82378; 82607; 82728; 83540; 83550; 83735; 85025; 86300; 96372; J0897

== ENCOUNTER 2022-02-06 07:21 | Day surgery (SDC) | payer OTHER ==
[2022-02-06 09:53] LABS: BASO % 0.5 % (0-2.0); EOS % 2.4 % (0-4.5); HEMATOCRIT 41.4 % (35.4-49); LYMPH % 27.9 % (8-40); MCH 32.4 pg (25.7-33.7); MCHC 33.8 g/dl (32.0-35.9); MEAN CELL VOLUME 95.8 fl (80-96); MONO % 6.5 % (3.8-10.2); NEUT % 62.7 % (42.8-82.8); PLATELET COUNT 214 10^3/uL (134-434); RBC 4.32 M/mm3 (4.00-5.60); RDW 14.4 % (11.9-15.9); WHITE BLOOD COUNT 7.1 K/mm3 (4.0-10.0)
[2022-02-06] MEDS ORDERED: DENOSUMAB 120 MG/1.7 ML VIAL SQ ONE (10:00)
[2022-02-06 10:18] LABS: CALCIUM 9.3 mg/dL (8.5-10.1)
[2022-02-06 10:19] LABS: ALBUMIN 3.6 g/dl (3.4-5.0); BLOOD UREA NITROGEN 18.3 mg/dL (7-18); MAGNESIUM 1.7 mg/dL (1.8-2.4)
[2022-02-06 10:21] LABS: BILIRUBIN,DIRECT 0.3 mg/dL (0.0-0.2)
[2022-02-06 10:22] LABS: CREATININE 1.8 mg/dL (0.55-1.3)
[2022-02-06 10:23] LABS: BILIRUBIN,TOTAL 0.8 mg/dL (0.2-1); TOT PROT 7.1 g/dl (6.4-8.2)
[2022-02-06 16:17] VITALS: BP 132/76; PULSE 103; TEMP 98.2
[2022-02-07] MEDS ORDERED: DENOSUMAB 120 MG/1.7 ML VIAL SQ ONE (10:00)
== END 2022-02-06 09:40 | disposition home or self-care (01) ==
LOC: JONCCHEMO 07:21
PROVIDERS: ATTEND Internal Medicine Hematology & Oncology
PROC: 3E013GC Introduction of Other Therapeutic Substance into Subcutaneous Tissue, Percutaneous Approach (ICD-10-PCS; principal; 2022-02-06)
DX: C50.929 Malignant neoplasm of unspecified site of unspecified male breast (principal)
CPT/HCPCS: 36415; 80048; 80076; 82306; 82378; 82607; 82728; 83540; 83550; 83735; 84153; 85025; 86300; 96372; J0897

== ENCOUNTER 2022-03-06 10:21 | Inpatient (IN) | payer OTHER ==
[2022-03-06] MEDS ORDERED: SODIUM CHLORIDE 0.9% 500 ML INFUS.BAG IV ONE ×2 (11:21→11:49)
[2022-03-06 11:34] LABS: VENOUS BASE EXCESS 4.2 mmol/L (-2-2); VENOUS O2 SATURATION 99.2 % (70-80); VENOUS PCO2 36.7 mmHg (38-52); VENOUS PH 7.491 (7.310-7.410)
[2022-03-06 12:01] LABS: INR 1.36 (0.83-1.09); PROTHROMBIN TIME (PATIENT) 15.7 SEC (9.7-13.0)
[2022-03-06 12:03] LABS: ACTIVATED PTT 31.9 SECONDS (25.2-36.5)
[2022-03-06 12:24] LABS: LACTIC ACID 4.6 mmol/L (0.4-2.0)
[2022-03-06 13:28] LABS: EPI CELLS 1 /uL (0-25.1); HYALINE CASTS 1 /uL (0-3.1); PH,URINE 5.5 (5.0-8.0); URINE APPEARANCE CLOUDY; URINE BACTERIA 32 /uL (0-1359); URINE BILIRUBIN NEGATIVE (NEGATIVE); URINE COLOR YELLOW; URINE GLUCOSE (UA) 2+ (NEGATIVE); URINE KETONE NEGATIVE (NEGATIVE); URINE LEUK ESTERASE 2+ (NEGATIVE); URINE NITRITE NEGATIVE (NEGATIVE); URINE PROTEIN 2+ (NEGATIVE); URINE RBC 214 /uL (0-23.9); URINE UROBILINOGEN 0.2 mg/dL (0.2-1.0); URINE WBC 1100 /uL (0-25.8)
[2022-03-06] MEDS ORDERED: SODIUM CHLORIDE 0.9% 1000 ML INFUS.BAG IV ONE (13:35)
[2022-03-06] MEDS ORDERED: PIPERACILLIN/TAZOB 2.25 GM 2.25 GM in DEXTROSE 5%-WATER - 50 ML IVPB ONE (13:57)
[2022-03-06] MEDS ORDERED: VANCOMYCIN 1 GM in D5W (PRE-DOCKED) 1,000 MG/250 ML IVPB ONE (13:57)
[2022-03-06] MEDS ORDERED: BACITRACIN 0.9 GM PACKET ONE (14:08)
[2022-03-06] MEDS ORDERED: PIPERACILLIN/TAZOB 2.25 GM 2.25 GM/50 ML BAG IVPB ONE (14:25)
[2022-03-06] MEDS ORDERED: VANCOMYCIN 1 GRAM (PRE-DOCKED) 1,000 MG/250 ML BAG IVPB ONE (14:59)
[2022-03-06] MEDS ORDERED: SODIUM CHLORIDE 250 ML IV STA (15:07)
[2022-03-06] MEDS ORDERED: ACETAMINOPHEN 1000 MG/100 ML BAG IVPB ONE (15:07)
[2022-03-06] MEDS ORDERED: ACETAMINOPHEN INJECTION 100 ML IVPB ONE (15:11)
[2022-03-06] MEDS: INSULIN SLIDING SCALE (NOVOLOG) 1 VIAL SQ SCH (15:30)
[2022-03-06 15:43] LABS: CALCIUM 8.9 mg/dL (8.5-10.1)
[2022-03-06 15:47] LABS: CREATININE 3.3 mg/dL (0.55-1.3)
[2022-03-06 15:59] LABS: LACTIC ACID 2.6 mmol/L (0.4-2.0)
[2022-03-06 15:59] LABS: YEAST MANY (NEGATIVE)
[2022-03-06] MEDS ORDERED: INSULIN (NOVOLOG) ASPART 100 UNITS/ML 10ML VIAL SQ ONE (16:15)
[2022-03-06] MEDS ORDERED: SODIUM CHLORIDE 1,000 ML IV SCH ×2 (16:15)
[2022-03-06] MEDS ORDERED: SODIUM CHLORIDE 1,000 ML IV STA (16:30)
[2022-03-06] MEDS ORDERED: LACTATED RINGERS SOLUTION 1000 ML INFUS.BAG IV ONE (18:19)
[2022-03-06 20:40] LABS: BASO % 0.6 % (0-2.0); EOS % 1.2 % (0-4.5); HEMATOCRIT 39.5 % (35.4-49); HEMOGLOBIN 13.6 GM/dL (11.7-16.9); LYMPH % 19.4 % (8-40); MCH 32.5 pg (25.7-33.7); MCHC 34.3 g/dl (32.0-35.9); MEAN CELL VOLUME 94.7 fl (80-96); MEAN PLT VOLUME 10.2 fl (7.5-11.1); MONO % 7.7 % (3.8-10.2); NEUT % 71.1 % (42.8-82.8); PLATELET COUNT 158 10^3/uL (134-434); RBC 4.18 M/mm3 (4.00-5.60); RDW 13.8 % (11.9-15.9); WHITE BLOOD COUNT 10.3 K/mm3 (4.0-10.0)
[2022-03-06 20:59] LABS: CHLORIDE 98 mmol/L (98-107); SODIUM 135 mmol/L (136-145)
[2022-03-06 21:01] LABS: CO2 28 mmol/L (21-32); GLUCOSE,RANDOM 250 mg/dL (74-106)
[2022-03-06 21:04] LABS: CREATININE 2.3 mg/dL (0.55-1.3)
[2022-03-06 21:10] LABS: ANION GAP 9 MMOL/L (8-16); CALCIUM 6.4 mg/dL (8.5-10.1); LACTIC ACID 2.5 mmol/L (0.4-2.0)
[2022-03-06] MEDS ORDERED: CALCIUM GLUC IN NACL, ISO-OSM 1 GM/50 ML BAG IVPB ONE (21:37)
[2022-03-06] MEDS ORDERED: CHLORHEXIDINE GLUCONATE 4% CLEANSER FOR DECOLONIZATION TP SCH (22:00)
[2022-03-06] MEDS ORDERED: PIPERACILLIN/TAZOBACTAM 2.25 GM VIAL IVPB ONE (22:12)
[2022-03-06] MEDS ORDERED: DEXTROSE 5%-WATER - 50 ML IVPB ONE (22:13)
[2022-03-06] MEDS: SODIUM CHLORIDE 0.45%/POT 20 MEQ/1,000 ML INFUS.BAG IV SCH (22:41)
[2022-03-06] MEDS: APIXABAN 2.5 MG TABLET PO SCH (22:41)
[2022-03-06] MEDS: KCL 10 MEQ IVPB 10 MEQ/100 ML INFUS.BAG IVPB SCH (22:41)
[2022-03-06] MEDS: MUPIROCIN 2% TOPICAL OINTMENT FOR DECOLONIZATION NS SCH (22:41)
[2022-03-06] MEDS: PIPERACILLIN/TAZOB 2.25 GM 2.25 GM in DEXTROSE 5%-WATER - 50 ML IVPB SCH (22:42)
[2022-03-06 23:53] LABS: MAGNESIUM 1.8 mg/dL (1.8-2.4)
[2022-03-07] MEDS: KCL 10 MEQ IVPB 10 MEQ/100 ML INFUS.BAG IVPB SCH ×2 (00:03→02:04)
[2022-03-07] MEDS: INSULIN SLIDING SCALE (NOVOLOG) 1 VIAL SQ SCH ×5 (00:03→21:21)
[2022-03-07 01:06] LABS: BLOOD UREA NITROGEN 32.7 mg/dL (7-18)
[2022-03-07 01:09] LABS: CREATININE 2.6 mg/dL (0.55-1.3)
[2022-03-07] MEDS ORDERED: PIPERACILLIN/TAZOBACTAM 2.25 GM VIAL IVPB ONE ×2 (05:37→17:08)
[2022-03-07] MEDS ORDERED: DEXTROSE 5%-WATER - 50 ML IVPB ONE ×2 (05:38→17:09)
[2022-03-07] MEDS: PIPERACILLIN/TAZOB 2.25 GM 2.25 GM in DEXTROSE 5%-WATER - 50 ML IVPB SCH (06:27)
[2022-03-07 07:40] LABS: BASO % 0.6 % (0-2.0); HEMATOCRIT 42.6 % (35.4-49); HEMOGLOBIN 14.3 GM/dL (11.7-16.9); LYMPH % 21.4 % (8-40); MCH 32.2 pg (25.7-33.7); MCHC 33.5 g/dl (32.0-35.9); MEAN PLT VOLUME 11.1 fl (7.5-11.1); MONO % 8.9 % (3.8-10.2); NEUT % 66.1 % (42.8-82.8); PLATELET COUNT 148 10^3/uL (134-434); RBC 4.44 M/mm3 (4.00-5.60); RDW 14.1 % (11.9-15.9)
[2022-03-07 07:57] LABS: CALCIUM 8.2 mg/dL (8.5-10.1)
[2022-03-07 07:58] LABS: BLOOD UREA NITROGEN 30.2 mg/dL (7-18); MAGNESIUM 2.3 mg/dL (1.8-2.4)
[2022-03-07 08:00] LABS: CREATININE 2.3 mg/dL (0.55-1.3)
[2022-03-07 08:01] LABS: PHOSPHOROUS 2.4 mg/dL (2.5-4.9)
[2022-03-07 08:02] LABS: BILIRUBIN,TOTAL 1.1 mg/dL (0.2-1)
[2022-03-07 08:12] LABS: LACTIC ACID 2.2 mmol/L (0.4-2.0)
[2022-03-07 08:18] LABS: ALBUMIN 3.2 g/dl (3.4-5.0)
[2022-03-07] MEDS: APIXABAN 2.5 MG TABLET PO SCH ×2 (09:41→21:21)
[2022-03-07] MEDS: MUPIROCIN 2% TOPICAL OINTMENT FOR DECOLONIZATION NS SCH (09:41)
[2022-03-07] MEDS ORDERED: ALLOPURINOL 100 MG TABLET (FP) PO SCH (10:00)
[2022-03-07] MEDS: SODIUM CHLORIDE 0.45%/POT 20 MEQ/1,000 ML INFUS.BAG IV SCH ×2 (12:01→21:22)
[2022-03-07] MEDS ORDERED: PIPERACILLIN/TAZOB 2.25 GM 2.25 GM in DEXTROSE 5%-WATER - 50 ML IVPB SCH ×2 (18:00→23:00)
[2022-03-07] MEDS ORDERED: MUPIROCIN 2% TOPICAL OINTMENT FOR DECOLONIZATION NS SCH (22:00)
[2022-03-07] MEDS ORDERED: CHLORHEXIDINE GLUCONATE 4% CLEANSER FOR DECOLONIZATION TP SCH (22:00)
[2022-03-07] MEDS ORDERED: ACETAMINOPHEN 325 MG TABLET (FP) PO ONE (23:32)
[2022-03-08] MEDS ORDERED: DEXTROSE 5%-WATER - 50 ML IVPB ONE ×3 (01:42→17:22)
[2022-03-08] MEDS ORDERED: PIPERACILLIN/TAZOBACTAM 2.25 GM VIAL IVPB ONE ×3 (01:42→17:22)
[2022-03-08] MEDS: PIPERACILLIN/TAZOB 2.25 GM 2.25 GM in DEXTROSE 5%-WATER - 50 ML IVPB SCH ×3 (01:51→17:41)
[2022-03-08] MEDS: INSULIN SLIDING SCALE (NOVOLOG) 1 VIAL SQ SCH ×4 (06:22→21:14)
[2022-03-08 08:09] LABS: BASO % 0.6 % (0-2.0); EOS % 2.6 % (0-4.5); HEMOGLOBIN 14.3 GM/dL (11.7-16.9); LYMPH % 28.7 % (8-40); MCH 31.9 pg (25.7-33.7); MCHC 33.2 g/dl (32.0-35.9); MEAN CELL VOLUME 96.1 fl (80-96); MEAN PLT VOLUME 10.5 fl (7.5-11.1); MONO % 8.2 % (3.8-10.2); NEUT % 59.9 % (42.8-82.8); PLATELET COUNT 130 10^3/uL (134-434); RBC 4.47 M/mm3 (4.00-5.60); RDW 13.6 % (11.9-15.9); WHITE BLOOD COUNT 5.3 K/mm3 (4.0-10.0)
[2022-03-08 08:15] LABS: ALBUMIN 3.3 g/dl (3.4-5.0); CALCIUM 8.5 mg/dL (8.5-10.1)
[2022-03-08 08:16] LABS: BLOOD UREA NITROGEN 16.3 mg/dL (7-18); MAGNESIUM 2.3 mg/dL (1.8-2.4)
[2022-03-08 08:18] LABS: PHOSPHOROUS 2.1 mg/dL (2.5-4.9)
[2022-03-08 08:19] LABS: CREATININE 1.7 mg/dL (0.55-1.3)
[2022-03-08 08:20] LABS: BILIRUBIN,TOTAL 0.9 mg/dL (0.2-1)
[2022-03-08] MEDS ORDERED: POTASSIUM CHLORIDE TABS 20 MEQ TABLET.ER (FP) PO ONE (08:24)
[2022-03-08] MEDS: APIXABAN 2.5 MG TABLET PO SCH ×2 (09:50→21:03)
[2022-03-08] MEDS: ALLOPURINOL 100 MG TABLET (FP) PO SCH (09:50)
[2022-03-08] MEDS: SODIUM CHLORIDE 0.45%/POT 20 MEQ/1,000 ML INFUS.BAG IV SCH ×3 (12:57→23:44)
[2022-03-08] MEDS: NAPH,MB-DB/K PH,MBDB POWDER PACKET PO SCH ×3 (12:58→21:06)
[2022-03-08] MEDS ORDERED: ACETAMINOPHEN 1000 MG/100 ML BAG IVPB PRN (15:26)
[2022-03-08] MEDS ORDERED: COLCHICINE 0.6 MG CAPSULE PO SCH (15:30)
[2022-03-08] MEDS ORDERED: BISACODYL 5 MG TABLET.DR (FP) PO PRN (15:59)
[2022-03-08] MEDS ORDERED: COLCHICINE 0.6 MG TAB PO SCH (16:14)
[2022-03-08] MEDS: metoPROLOL SUCCINATE 25 MG TAB.SR.24H (FP) PO SCH (16:30)
[2022-03-08] MEDS: COLCHICINE 0.6 MG TAB PO SCH (17:17)
[2022-03-08] MEDS: POLYETHYLENE GLYCOL (HEALTHYLAX) 3350 17 GM PACKET PO SCH (21:06)
[2022-03-08] MEDS: SENNOSIDES 8.6MG TABLET (FP) PO SCH (21:06)
[2022-03-08] MEDS: ATORVASTATIN CA 40 MG TABLET (FP) PO SCH (21:06)
[2022-03-09] MEDS ORDERED: PIPERACILLIN/TAZOBACTAM 2.25 GM VIAL IVPB ONE ×3 (01:15→17:15)
[2022-03-09] MEDS ORDERED: DEXTROSE 5%-WATER - 50 ML IVPB ONE ×3 (01:16→17:15)
[2022-03-09] MEDS: PIPERACILLIN/TAZOB 2.25 GM 2.25 GM in DEXTROSE 5%-WATER - 50 ML IVPB SCH ×3 (01:21→17:52)
[2022-03-09] MEDS: NAPH,MB-DB/K PH,MBDB POWDER PACKET PO SCH ×2 (06:03→14:18)
[2022-03-09] MEDS: INSULIN SLIDING SCALE (NOVOLOG) 1 VIAL SQ SCH ×4 (06:04→21:38)
[2022-03-09] MEDS: INSULIN (LEVEMIR) 100 UNITS/ML UNITS SQ SCH ×2 (08:21→21:38)
[2022-03-09 08:56] LABS: BASO % 0.6 % (0-2.0); EOS % 2.7 % (0-4.5); HEMATOCRIT 42.6 % (35.4-49); LYMPH % 26.1 % (8-40); MCH 31.8 pg (25.7-33.7); MCHC 32.9 g/dl (32.0-35.9); MEAN CELL VOLUME 96.9 fl (80-96); MEAN PLT VOLUME 10.2 fl (7.5-11.1); MONO % 6.7 % (3.8-10.2); NEUT % 63.9 % (42.8-82.8); PLATELET COUNT 129 10^3/uL (134-434); RBC 4.39 M/mm3 (4.00-5.60); RDW 13.9 % (11.9-15.9); WHITE BLOOD COUNT 5.1 K/mm3 (4.0-10.0)
[2022-03-09 09:30] LABS: BLOOD UREA NITROGEN 11.6 mg/dL (7-18); CALCIUM 8.2 mg/dL (8.5-10.1)
[2022-03-09 09:31] LABS: MAGNESIUM 1.9 mg/dL (1.8-2.4)
[2022-03-09 09:33] LABS: CREATININE 1.5 mg/dL (0.55-1.3)
[2022-03-09 09:34] LABS: PHOSPHOROUS 2.2 mg/dL (2.5-4.9)
[2022-03-09 09:35] LABS: BILIRUBIN,TOTAL 0.7 mg/dL (0.2-1); TOT PROT 5.8 g/dl (6.4-8.2)
[2022-03-09] MEDS: POLYETHYLENE GLYCOL (HEALTHYLAX) 3350 17 GM PACKET PO SCH ×2 (09:35→21:33)
[2022-03-09] MEDS: APIXABAN 2.5 MG TABLET PO SCH ×2 (09:35→21:33)
[2022-03-09] MEDS: ALLOPURINOL 100 MG TABLET (FP) PO SCH (09:35)
[2022-03-09] MEDS: COLCHICINE 0.6 MG TAB PO SCH (09:35)
[2022-03-09] MEDS: metoPROLOL SUCCINATE 25 MG TAB.SR.24H (FP) PO SCH (09:35)
[2022-03-09] MEDS: SODIUM CHLORIDE 0.45%/POT 20 MEQ/1,000 ML INFUS.BAG IV SCH ×2 (11:00→14:20)
[2022-03-09] MEDS: ATORVASTATIN CA 40 MG TABLET (FP) PO SCH (21:33)
[2022-03-09] MEDS: SENNOSIDES 8.6MG TABLET (FP) PO SCH (21:33)
[2022-03-10] MEDS ORDERED: DEXTROSE 5%-WATER - 50 ML IVPB ONE ×2 (01:02→09:58)
[2022-03-10] MEDS ORDERED: PIPERACILLIN/TAZOBACTAM 2.25 GM VIAL IVPB ONE ×2 (01:02→09:58)
[2022-03-10] MEDS: PIPERACILLIN/TAZOB 2.25 GM 2.25 GM in DEXTROSE 5%-WATER - 50 ML IVPB SCH ×2 (01:10→10:06)
[2022-03-10] MEDS: INSULIN SLIDING SCALE (NOVOLOG) 1 VIAL SQ SCH ×4 (06:42→21:37)
[2022-03-10] MEDS: INSULIN (LEVEMIR) 100 UNITS/ML UNITS SQ SCH ×2 (06:43→21:34)
[2022-03-10] MEDS: metoPROLOL SUCCINATE 25 MG TAB.SR.24H (FP) PO SCH (10:04)
[2022-03-10] MEDS: COLCHICINE 0.6 MG TAB PO SCH (10:04)
[2022-03-10] MEDS: APIXABAN 2.5 MG TABLET PO SCH ×2 (10:05→21:33)
[2022-03-10] MEDS: POLYETHYLENE GLYCOL (HEALTHYLAX) 3350 17 GM PACKET PO SCH ×2 (10:05→21:33)
[2022-03-10] MEDS: ALLOPURINOL 100 MG TABLET (FP) PO SCH (10:05)
[2022-03-10] MEDS: NAPH,MB-DB/K PH,MBDB POWDER PACKET PO SCH (10:05)
[2022-03-10] MEDS ORDERED: metoPROLOL SUCCINATE 25 MG TAB.SR.24H (FP) PO SCH (11:19)
[2022-03-10] MEDS ORDERED: metoPROLOL SUCCINATE 25 MG TAB.SR.24H (FP) PO ONE (11:24)
[2022-03-10 11:47] LABS: CALCIUM 8.6 mg/dL (8.5-10.1)
[2022-03-10 11:48] LABS: ALBUMIN 3.1 g/dl (3.4-5.0); BLOOD UREA NITROGEN 8.3 mg/dL (7-18)
[2022-03-10 11:49] LABS: BASO % 0.7 % (0-2.0); CREATININE 1.4 mg/dL (0.55-1.3); EOS % 2.1 % (0-4.5); HEMATOCRIT 43.3 % (35.4-49); HEMOGLOBIN 14.3 GM/dL (11.7-16.9); LYMPH % 21.7 % (8-40); MCH 32.1 pg (25.7-33.7); MCHC 32.9 g/dl (32.0-35.9); MEAN CELL VOLUME 97.5 fl (80-96); MEAN PLT VOLUME 9.9 fl (7.5-11.1); MONO % 6.4 % (3.8-10.2); NEUT % 69.1 % (42.8-82.8); PLATELET COUNT 142 10^3/uL (134-434); RBC 4.45 M/mm3 (4.00-5.60); RDW 14.1 % (11.9-15.9); WHITE BLOOD COUNT 6.1 K/mm3 (4.0-10.0)
[2022-03-10] MEDS: SODIUM CHLORIDE 0.45%/POT 20 MEQ/1,000 ML INFUS.BAG IV SCH (11:50)
[2022-03-10 11:54] LABS: BILIRUBIN,TOTAL 0.8 mg/dL (0.2-1)
[2022-03-10] MEDS ORDERED: ACETAMINOPHEN 500 MG TABLET (FP) PO PRN (16:01)
[2022-03-10] MEDS: AMOX TR/POT CLAV 875MG/125MG TABLETS (FP) PO SCH (17:09)
[2022-03-10] MEDS: ATORVASTATIN CA 40 MG TABLET (FP) PO SCH (21:33)
[2022-03-10] MEDS: SENNOSIDES 8.6MG TABLET (FP) PO SCH (21:33)
[2022-03-11] MEDS: SODIUM CHLORIDE 0.45%/POT 20 MEQ/1,000 ML INFUS.BAG IV SCH (01:05)
[2022-03-11] MEDS: INSULIN (LEVEMIR) 100 UNITS/ML UNITS SQ SCH ×2 (06:13→21:43)
[2022-03-11] MEDS: INSULIN SLIDING SCALE (NOVOLOG) 1 VIAL SQ SCH ×4 (06:14→21:44)
[2022-03-11] MEDS: AMOX TR/POT CLAV 875MG/125MG TABLETS (FP) PO SCH ×2 (08:23→16:57)
[2022-03-11 08:42] LABS: BASO % 0.6 % (0-2.0); EOS % 2.9 % (0-4.5); LYMPH % 25.8 % (8-40); MCH 32.3 pg (25.7-33.7); MCHC 33.3 g/dl (32.0-35.9); MEAN PLT VOLUME 9.2 fl (7.5-11.1); MONO % 8.6 % (3.8-10.2); NEUT % 62.1 % (42.8-82.8); PLATELET COUNT 132 10^3/uL (134-434); RBC 4.33 M/mm3 (4.00-5.60); RDW 14.1 % (11.9-15.9); WHITE BLOOD COUNT 5.6 K/mm3 (4.0-10.0)
[2022-03-11 09:19] LABS: CALCIUM 8.4 mg/dL (8.5-10.1)
[2022-03-11 09:20] LABS: ALBUMIN 3.1 g/dl (3.4-5.0); BLOOD UREA NITROGEN 6.3 mg/dL (7-18); MAGNESIUM 1.9 mg/dL (1.8-2.4)
[2022-03-11 09:25] LABS: BILIRUBIN,TOTAL 0.7 mg/dL (0.2-1)
[2022-03-11 09:26] LABS: CREATININE 1.2 mg/dL (0.55-1.3)
[2022-03-11] MEDS: ALLOPURINOL 100 MG TABLET (FP) PO SCH (10:26)
[2022-03-11] MEDS: APIXABAN 2.5 MG TABLET PO SCH ×2 (10:26→21:43)
[2022-03-11] MEDS: NAPH,MB-DB/K PH,MBDB POWDER PACKET PO SCH (10:26)
[2022-03-11] MEDS: COLCHICINE 0.6 MG TAB PO SCH (10:26)
[2022-03-11] MEDS: metoPROLOL SUCCINATE 25 MG TAB.SR.24H (FP) PO SCH (10:26)
[2022-03-11] MEDS: POLYETHYLENE GLYCOL (HEALTHYLAX) 3350 17 GM PACKET PO SCH ×2 (10:27→21:43)
[2022-03-11] MEDS: SENNOSIDES 8.6MG TABLET (FP) PO SCH (21:43)
[2022-03-11] MEDS: ATORVASTATIN CA 40 MG TABLET (FP) PO SCH (21:43)
[2022-03-12] MEDS: INSULIN SLIDING SCALE (NOVOLOG) 1 VIAL SQ SCH ×4 (06:25→21:42)
[2022-03-12] MEDS: INSULIN (LEVEMIR) 100 UNITS/ML UNITS SQ SCH ×2 (06:26→21:42)
[2022-03-12] MEDS: AMOX TR/POT CLAV 875MG/125MG TABLETS (FP) PO SCH ×2 (09:24→16:46)
[2022-03-12] MEDS: LACTOBACILLUS ACIDOPHILUS 1 TABLET PO SCH (09:24)
[2022-03-12] MEDS: ALLOPURINOL 100 MG TABLET (FP) PO SCH (09:25)
[2022-03-12] MEDS: metoPROLOL SUCCINATE 25 MG TAB.SR.24H (FP) PO SCH (09:25)
[2022-03-12] MEDS: POLYETHYLENE GLYCOL (HEALTHYLAX) 3350 17 GM PACKET PO SCH ×2 (09:25→21:42)
[2022-03-12] MEDS: APIXABAN 2.5 MG TABLET PO SCH ×2 (09:25→21:42)
[2022-03-12] MEDS: COLCHICINE 0.6 MG TAB PO SCH (09:25)
[2022-03-12] MEDS: NAPH,MB-DB/K PH,MBDB POWDER PACKET PO SCH (09:25)
[2022-03-12 12:25] LABS: EOS % 2.6 % (0-4.5); HEMATOCRIT 43.4 % (35.4-49); HEMOGLOBIN 14.4 GM/dL (11.7-16.9); LYMPH % 24.4 % (8-40); MCH 32.2 pg (25.7-33.7); MCHC 33.1 g/dl (32.0-35.9); MEAN CELL VOLUME 97.2 fl (80-96); MONO % 8.1 % (3.8-10.2); NEUT % 63.9 % (42.8-82.8); PLATELET COUNT 151 10^3/uL (134-434); RBC 4.46 M/mm3 (4.00-5.60); RDW 14.5 % (11.9-15.9); WHITE BLOOD COUNT 5.2 K/mm3 (4.0-10.0)
[2022-03-12 13:12] LABS: ALBUMIN 3.1 g/dl (3.4-5.0); BILIRUBIN,TOTAL 0.6 mg/dL (0.2-1); BLOOD UREA NITROGEN 7.1 mg/dL (7-18); CALCIUM 8.4 mg/dL (8.5-10.1); CREATININE 1.2 mg/dL (0.55-1.3)
[2022-03-12] MEDS ORDERED: ALBUTEROL SO4 2.5/IPRATROPIUM 0.5 INH SOL 3 ML VIAL.NEB. NEB PRN (14:01)
[2022-03-12 15:53] VITALS: BMI 43.2
[2022-03-12] MEDS: SENNOSIDES 8.6MG TABLET (FP) PO SCH (21:42)
[2022-03-12] MEDS: ATORVASTATIN CA 40 MG TABLET (FP) PO SCH (21:42)
[2022-03-13] MEDS: INSULIN SLIDING SCALE (NOVOLOG) 1 VIAL SQ SCH ×2 (06:17→11:40)
[2022-03-13] MEDS: INSULIN (LEVEMIR) 100 UNITS/ML UNITS SQ SCH (06:17)
[2022-03-13] MEDS: AMOX TR/POT CLAV 875MG/125MG TABLETS (FP) PO SCH (08:53)
[2022-03-13 10:12] VITALS: BP 130/73; PULSE 103; TEMP 98.5
[2022-03-13] MEDS: ALLOPURINOL 100 MG TABLET (FP) PO SCH (10:13)
[2022-03-13] MEDS: metoPROLOL SUCCINATE 25 MG TAB.SR.24H (FP) PO SCH (10:13)
[2022-03-13] MEDS: POLYETHYLENE GLYCOL (HEALTHYLAX) 3350 17 GM PACKET PO SCH (10:13)
[2022-03-13] MEDS: COLCHICINE 0.6 MG TAB PO SCH (10:13)
[2022-03-13] MEDS: NAPH,MB-DB/K PH,MBDB POWDER PACKET PO SCH (10:13)
[2022-03-13] MEDS: APIXABAN 2.5 MG TABLET PO SCH (10:13)
[2022-03-13] MEDS: LACTOBACILLUS ACIDOPHILUS 1 TABLET PO SCH (10:14)
== END 2022-03-13 14:23 | DRG 871 ==
LOC: JER 10:21 → JERBED 12:47 → JICU 20:49 → J6S 03-07 18:40
PROVIDERS: ADMIT Internal Medicine; ATTEND Nurse Practitioner Acute Care
DX: A41.89 Other specified sepsis (principal); R65.21 Severe sepsis with septic shock; C78.5 Secondary malignant neoplasm of large intestine and rectum; C79.51 Secondary malignant neoplasm of bone; E87.1 Hypo-osmolality and hyponatremia; N17.9 Acute kidney failure, unspecified; N39.0 Urinary tract infection, site not specified; I47.1 Supraventricular tachycardia; Z68.41 Body mass index [BMI] 40.0-44.9, adult; E66.9 Obesity, unspecified; C50.929 Malignant neoplasm of unspecified site of unspecified male breast; I95.1 Orthostatic hypotension; M10.9 Gout, unspecified; E78.5 Hyperlipidemia, unspecified; E11.9 Type 2 diabetes mellitus without complications; E87.5 Hyperkalemia; R29.6 Repeated falls; G20 Parkinson's disease; I12.9 Hypertensive chronic kidney disease with stage 1 through stage 4 chronic kidney disease, or unspecified chronic kidney disease; E11.22 Type 2 diabetes mellitus with diabetic chronic kidney disease; N18.9 Chronic kidney disease, unspecified; E11.65 Type 2 diabetes mellitus with hyperglycemia; E86.1 Hypovolemia; M06.8A Other specified rheumatoid arthritis, other specified site; Z86.718 Personal history of other venous thrombosis and embolism
CPT/HCPCS: 36415; 70450-TC; 71045-TC-FY; 71250-TC; 72125-TC; 74018-TC-FY; 76775-TC; 80048; 80053; 80076; 81003; 82378; 82550; 82553; 82803; 82962; 83036; 83605; 83735; 84100; 84443; 84484; 85025; 85610; 85730; 86300; 86850; 86900; 86901; 87040; 87086; 87804; 93005; 93010; 93306-TC; 93308; 93970; 94640; 97116-GP; 97162-GP; 99285-25; C9803-CS; J3480; U0003; U0005

== ENCOUNTER 2022-05-15 06:54 | Day surgery (SDC) | payer OTHER ==
[2022-05-15] MEDS ORDERED: DENOSUMAB 120 MG/1.7 ML VIAL SQ ONE (10:00)
[2022-05-15 10:14] LABS: BASO % 0.3 % (0-2.0); EOS % 1.4 % (0-4.5); HEMATOCRIT 41.9 % (35.4-49); LYMPH % 25.5 % (8-40); MCH 31.5 pg (25.7-33.7); MCHC 33.5 g/dl (32.0-35.9); MEAN CELL VOLUME 94.1 fl (80-96); MEAN PLT VOLUME 9.3 fl (7.5-11.1); MONO % 6.4 % (3.8-10.2); NEUT % 66.4 % (42.8-82.8); PLATELET COUNT 270 10^3/uL (134-434); RBC 4.46 M/mm3 (4.00-5.60); RDW 14.5 % (11.9-15.9); WHITE BLOOD COUNT 8.7 K/mm3 (4.0-10.0)
[2022-05-15 10:36] LABS: CALCIUM 8.9 mg/dL (8.5-10.1)
[2022-05-15 10:37] LABS: BLOOD UREA NITROGEN 22.4 mg/dL (7-18); MAGNESIUM 1.9 mg/dL (1.8-2.4)
[2022-05-15 10:40] LABS: BILIRUBIN,DIRECT 0.3 mg/dL (0.0-0.2); CREATININE 1.7 mg/dL (0.55-1.3)
[2022-05-15 10:41] LABS: TOT PROT 7.7 g/dl (6.4-8.2)
[2022-05-15 15:15] VITALS: BP 110/58; PULSE 94; TEMP 98.7
== END 2022-05-15 10:30 | disposition home or self-care (01) ==
LOC: JONCCHEMO 06:54
PROVIDERS: ATTEND Internal Medicine Hematology & Oncology
PROC: 3E013GC Introduction of Other Therapeutic Substance into Subcutaneous Tissue, Percutaneous Approach (ICD-10-PCS; principal; 2022-05-15)
DX: C50.929 Malignant neoplasm of unspecified site of unspecified male breast (principal); Z76.89 Persons encountering health services in other specified circumstances
CPT/HCPCS: 36415; 80048; 80076; 82306; 82378; 82728; 83540; 83550; 83735; 85025; 86300; 96372; J0897

== ENCOUNTER 2022-06-13 06:17 | Day surgery (SDC) | payer OTHER ==
[2022-06-13 09:59] LABS: BASO % 0.6 % (0-2.0); EOS % 2.4 % (0-4.5); HEMATOCRIT 40.5 % (35.4-49); HEMOGLOBIN 13.7 GM/dL (11.7-16.9); LYMPH % 31.6 % (8-40); MCH 31.3 pg (25.7-33.7); MCHC 33.7 g/dl (32.0-35.9); MEAN CELL VOLUME 92.8 fl (80-96); MEAN PLT VOLUME 9.8 fl (7.5-11.1); MONO % 5.5 % (3.8-10.2); NEUT % 59.9 % (42.8-82.8); PLATELET COUNT 194 10^3/uL (134-434); RBC 4.37 M/mm3 (4.00-5.60); RDW 14.1 % (11.9-15.9)
[2022-06-13] MEDS ORDERED: DENOSUMAB 120 MG/1.7 ML VIAL SQ ONE (10:00)
[2022-06-13 10:26] LABS: ALBUMIN 3.8 g/dl (3.4-5.0); BLOOD UREA NITROGEN 23.6 mg/dL (7-18); CALCIUM 9.3 mg/dL (8.5-10.1); MAGNESIUM 1.9 mg/dL (1.8-2.4)
[2022-06-13 10:30] LABS: BILIRUBIN,DIRECT 0.3 mg/dL (0.0-0.2); BILIRUBIN,TOTAL 0.9 mg/dL (0.2-1); CREATININE 1.6 mg/dL (0.55-1.3); TOT PROT 7.2 g/dl (6.4-8.2)
[2022-06-13] MEDS ORDERED: POTASSIUM CHLORIDE TABS 20 MEQ TABLET.ER (FP) PO ONE (10:37)
[2022-06-13 17:51] VITALS: BP 110/64; PULSE 81; RESP 20; TEMP 98.4
== END 2022-06-13 11:00 | disposition home or self-care (01) ==
LOC: JONCCHEMO 06:17
PROVIDERS: ATTEND Internal Medicine Hematology & Oncology
PROC: 3E013GC Introduction of Other Therapeutic Substance into Subcutaneous Tissue, Percutaneous Approach (ICD-10-PCS; principal; 2022-06-13)
DX: C50.929 Malignant neoplasm of unspecified site of unspecified male breast (principal); Z76.89 Persons encountering health services in other specified circumstances
CPT/HCPCS: 36415; 80048; 80076; 82378; 82728; 83540; 83550; 83735; 85025; 86300; 96372; J0897

== ENCOUNTER 2022-09-12 10:01 | Day surgery (SDC) | payer OTHER ==
[2022-09-12] MEDS ORDERED: DENOSUMAB 120 MG/1.7 ML VIAL SQ ONE (11:00)
[2022-09-12 12:03] LABS: BASO % 0.4 % (0-2.0); HEMATOCRIT 41.8 % (35.4-49); HEMOGLOBIN 14.5 GM/dL (11.7-16.9); LYMPH % 25.6 % (8-40); MCH 32.6 pg (25.7-33.7); MCHC 34.7 g/dl (32.0-35.9); MEAN CELL VOLUME 93.9 fl (80-96); MEAN PLT VOLUME 9.7 fl (7.5-11.1); MONO % 6.3 % (3.8-10.2); NEUT % 65.7 % (42.8-82.8); PLATELET COUNT 216 10^3/uL (134-434); RBC 4.45 M/mm3 (4.00-5.60); RDW 13.9 % (11.9-15.9); WHITE BLOOD COUNT 8.6 K/mm3 (4.0-10.0)
[2022-09-12 12:21] LABS: CALCIUM 9.8 mg/dL (8.5-10.1)
[2022-09-12 12:22] LABS: ALBUMIN 3.9 g/dl (3.4-5.0); BLOOD UREA NITROGEN 27.3 mg/dL (7-18); MAGNESIUM 2.2 mg/dL (1.8-2.4)
[2022-09-12 12:24] LABS: BILIRUBIN,DIRECT 0.3 mg/dL (0.0-0.2)
[2022-09-12 12:25] LABS: CREATININE 1.5 mg/dL (0.55-1.3)
[2022-09-12 12:26] LABS: TOT PROT 7.7 g/dl (6.4-8.2)
[2022-09-12 14:35] VITALS: BP 115/58; PULSE 75; RESP 20; TEMP 99
== END 2022-09-12 11:20 | disposition home or self-care (01) ==
LOC: JONCCHEMO 10:01
PROVIDERS: ATTEND Internal Medicine Hematology & Oncology
PROC: 3E013GC Introduction of Other Therapeutic Substance into Subcutaneous Tissue, Percutaneous Approach (ICD-10-PCS; principal; 2022-09-12)
DX: C50.929 Malignant neoplasm of unspecified site of unspecified male breast (principal); Z76.89 Persons encountering health services in other specified circumstances
CPT/HCPCS: 36415; 80048; 80076; 82306; 82378; 83735; 85025; 86300; 96372; J0897

== ENCOUNTER 2022-11-22 10:17 | Day surgery (SDC) | payer OTHER ==
[2022-11-22 14:47] VITALS: BP 121/71; PULSE 76; RESP 18; TEMP 98.9
== END 2022-11-22 10:30 | disposition home or self-care (01) ==
LOC: JONCCHEMO 10:17
PROVIDERS: ATTEND Internal Medicine Hematology & Oncology
PROC: 3E013GC Introduction of Other Therapeutic Substance into Subcutaneous Tissue, Percutaneous Approach (ICD-10-PCS; principal; 2022-11-22)
DX: C50.929 Malignant neoplasm of unspecified site of unspecified male breast (principal); Z76.89 Persons encountering health services in other specified circumstances
CPT/HCPCS: 96372; J0897

== ENCOUNTER 2022-12-21 09:04 | Day surgery (SDC) | payer OTHER ==
[2022-12-21] MEDS ORDERED: DENOSUMAB 120 MG/1.7 ML VIAL SQ ONE (10:00)
[2022-12-21 10:52] VITALS: BP 110/55; PULSE 75; RESP 18; TEMP 98.6
== END 2022-12-21 09:30 | disposition home or self-care (01) ==
LOC: JONCCHEMO 09:04
PROVIDERS: ATTEND Internal Medicine Hematology & Oncology
PROC: 3E013GC Introduction of Other Therapeutic Substance into Subcutaneous Tissue, Percutaneous Approach (ICD-10-PCS; principal; 2022-12-21)
DX: C50.929 Malignant neoplasm of unspecified site of unspecified male breast (principal); Z76.89 Persons encountering health services in other specified circumstances
CPT/HCPCS: 96372; J0897

== ENCOUNTER 2023-01-16 11:45 | Day surgery (SDC) | payer OTHER ==
[2023-01-16 12:43] LABS: BASO % 0.4 % (0-2.0); EOS % 1.7 % (0-4.5); HEMATOCRIT 43.6 % (35.4-49); HEMOGLOBIN 14.6 GM/dL (11.7-16.9); LYMPH % 24.9 % (8-40); MCH 31.1 pg (25.7-33.7); MCHC 33.4 g/dl (32.0-35.9); MEAN CELL VOLUME 93.1 fl (80-96); MEAN PLT VOLUME 9.2 fl (7.5-11.1); MONO % 7.5 % (3.8-10.2); NEUT % 65.5 % (42.8-82.8); PLATELET COUNT 216 10^3/uL (134-434); RBC 4.68 M/mm3 (4.00-5.60); RDW 14.6 % (11.9-15.9); WHITE BLOOD COUNT 8.9 K/mm3 (4.0-10.0)
[2023-01-16 13:47] LABS: ALBUMIN 3.8 g/dl (3.4-5.0); BLOOD UREA NITROGEN 27.6 mg/dL (7-18); CALCIUM 9.2 mg/dL (8.5-10.1); MAGNESIUM 2.2 mg/dL (1.8-2.4)
[2023-01-16 13:50] LABS: BILIRUBIN,DIRECT 0.3 mg/dL (0.0-0.2); CREATININE 1.7 mg/dL (0.55-1.3)
[2023-01-16 13:51] LABS: TOT PROT 7.5 g/dl (6.4-8.2)
[2023-01-16 16:57] VITALS: BP 123/71; PULSE 80; RESP 20; TEMP 98.3
== END 2023-01-16 12:45 | disposition home or self-care (01) ==
LOC: JONCCHEMO 11:45
PROVIDERS: ATTEND Internal Medicine Hematology & Oncology
PROC: 3E013GC Introduction of Other Therapeutic Substance into Subcutaneous Tissue, Percutaneous Approach (ICD-10-PCS; principal; 2023-01-16)
DX: C50.929 Malignant neoplasm of unspecified site of unspecified male breast (principal); Z76.89 Persons encountering health services in other specified circumstances
CPT/HCPCS: 36415; 80048; 80076; 82378; 83735; 85025; 86300; 96372; J0897

== ENCOUNTER 2023-02-12 11:16 | Day surgery (SDC) | payer OTHER ==
[2023-02-12 15:47] VITALS: BP 119/61; PULSE 83; RESP 18; TEMP 98.4
== END 2023-02-12 11:50 | disposition home or self-care (01) ==
LOC: JONCCHEMO 11:16
PROVIDERS: ATTEND Internal Medicine Hematology & Oncology
PROC: 3E013GC Introduction of Other Therapeutic Substance into Subcutaneous Tissue, Percutaneous Approach (ICD-10-PCS; principal; 2023-02-12)
DX: Z76.89 Persons encountering health services in other specified circumstances (principal); C50.929 Malignant neoplasm of unspecified site of unspecified male breast
CPT/HCPCS: 96372; J0897

== ENCOUNTER 2023-09-19 11:18 | Day surgery (SDC) | payer OTHER ==
[~2023-09-19 11:18] MED LIST changes: +FULVESTRANT 250 MG/5 ML SYRINGE IM ONE
[2023-09-19 16:12] VITALS: BP 120/69; PULSE 73; RESP 18; TEMP 98.1
== END 2023-09-19 12:00 | disposition home or self-care (01) ==
LOC: JONCCHEMO 11:18 → J7W 11:20 → JONCCHEMO 12:00
PROVIDERS: ATTEND Internal Medicine Hematology & Oncology
PROC: 3E02305 Introduction of Other Antineoplastic into Muscle, Percutaneous Approach (ICD-10-PCS; principal; 2023-09-19)
PROC: 3E013GC Introduction of Other Therapeutic Substance into Subcutaneous Tissue, Percutaneous Approach (ICD-10-PCS; 2023-09-19)
DX: Z51.11 Encounter for antineoplastic chemotherapy (principal); C50.921 Malignant neoplasm of unspecified site of right male breast; C18.7 Malignant neoplasm of sigmoid colon
CPT/HCPCS: 96372; 96402; J0897; J9395

== ENCOUNTER 2023-10-02 09:56 | Day surgery (SDC) | payer OTHER ==
[2023-10-02] MEDS ORDERED: FULVESTRANT 250 MG/5 ML SYRINGE IM ONE (10:00)
[2023-10-02 15:10] VITALS: BP 120/73; PULSE 72; RESP 20; TEMP 98.4
== END 2023-10-02 10:20 | disposition home or self-care (01) ==
LOC: J7W 09:56 → JONCCHEMO 09:56
PROVIDERS: ATTEND Internal Medicine Hematology & Oncology
DX: Z51.11 Encounter for antineoplastic chemotherapy (principal); C50.921 Malignant neoplasm of unspecified site of right male breast; Z17.0 Estrogen receptor positive status [ER+]
CPT/HCPCS: 96402; J9395

== ENCOUNTER 2023-11-14 11:23 | Day surgery (SDC) | payer OTHER ==
[2023-11-14 15:36] VITALS: BP 107/53; PULSE 63; RESP 16; TEMP 97.6
== END 2023-11-14 12:00 | disposition home or self-care (01) ==
LOC: JONCCHEMO 11:23 → J7W 11:25 → JONCCHEMO 12:00
PROVIDERS: ATTEND Internal Medicine Hematology & Oncology
PROC: 3E02305 Introduction of Other Antineoplastic into Muscle, Percutaneous Approach (ICD-10-PCS; principal; 2023-11-14)
PROC: 3E013GC Introduction of Other Therapeutic Substance into Subcutaneous Tissue, Percutaneous Approach (ICD-10-PCS; 2023-11-14)
DX: Z51.11 Encounter for antineoplastic chemotherapy (principal); C50.921 Malignant neoplasm of unspecified site of right male breast; Z17.0 Estrogen receptor positive status [ER+]
CPT/HCPCS: 96372; 96402; J0897; J9395

== ENCOUNTER 2023-11-29 11:04 | Day surgery (SDC) | payer OTHER ==
[~2023-11-29 11:04] MED LIST changes: -DENOSUMAB 120 MG/1.7 ML VIAL SQ ONE
[2023-11-29] MEDS ORDERED: FULVESTRANT 250 MG/5 ML SYRINGE IM ONE (11:30)
[2023-11-29 17:07] VITALS: BP 120/61; PULSE 73; RESP 22; TEMP 98.5
== END 2023-11-29 11:55 | disposition home or self-care (01) ==
LOC: JONCCHEMO 11:04 → J7W 11:05 → JONCCHEMO 11:55
PROVIDERS: ATTEND Internal Medicine Hematology & Oncology
DX: Z51.11 Encounter for antineoplastic chemotherapy (principal); C50.921 Malignant neoplasm of unspecified site of right male breast
CPT/HCPCS: 96402; J9395

== ENCOUNTER 2023-12-12 10:41 | Day surgery (SDC) | payer OTHER ==
[2023-12-12] MEDS: DENOSUMAB 120 MG/1.7 ML VIAL SQ ONE (11:06)
[2023-12-12] MEDS: FULVESTRANT 250 MG/5 ML SYRINGE IM ONE (11:07)
[2023-12-12 14:51] VITALS: BP 105/67; PULSE 77; RESP 18; TEMP 98.3
== END 2023-12-12 11:30 | disposition home or self-care (01) ==
LOC: JONCCHEMO 10:41 → J7W 10:47 → JONCCHEMO 11:30
PROVIDERS: ATTEND Internal Medicine Hematology & Oncology
PROC: 3E013GC Introduction of Other Therapeutic Substance into Subcutaneous Tissue, Percutaneous Approach (ICD-10-PCS; principal; 2023-12-12)
PROC: 3E02305 Introduction of Other Antineoplastic into Muscle, Percutaneous Approach (ICD-10-PCS; 2023-12-12)
DX: Z51.11 Encounter for antineoplastic chemotherapy (principal); C50.921 Malignant neoplasm of unspecified site of right male breast
CPT/HCPCS: 96372; 96402; J0897; J9395

== ENCOUNTER 2024-01-09 10:26 | Day surgery (SDC) | payer OTHER ==
[2024-01-09] MEDS: DENOSUMAB 120 MG/1.7 ML VIAL SQ ONE (10:35)
[2024-01-09] MEDS: FULVESTRANT 250 MG/5 ML SYRINGE IM ONE (10:35)
[2024-01-09 11:04] VITALS: BP 106/60; PULSE 72; RESP 20; TEMP 97.9
== END 2024-01-09 11:15 | disposition home or self-care (01) ==
LOC: JONCCHEMO 10:26 → J7W 10:27 → JONCCHEMO 11:15
PROVIDERS: ATTEND Internal Medicine Hematology & Oncology
PROC: 3E02305 Introduction of Other Antineoplastic into Muscle, Percutaneous Approach (ICD-10-PCS; principal; 2024-01-09)
PROC: 3E013GC Introduction of Other Therapeutic Substance into Subcutaneous Tissue, Percutaneous Approach (ICD-10-PCS; 2024-01-09)
DX: Z51.11 Encounter for antineoplastic chemotherapy (principal); C50.921 Malignant neoplasm of unspecified site of right male breast
CPT/HCPCS: 96372; 96402; J0897; J9395

== ENCOUNTER 2024-02-06 11:10 | Day surgery (SDC) | payer OTHER ==
[2024-02-06] MEDS: DENOSUMAB 120 MG/1.7 ML VIAL SQ ONE (11:32)
[2024-02-06] MEDS: FULVESTRANT 250 MG/5 ML SYRINGE IM ONE (11:32)
[2024-02-06 17:15] VITALS: BP 116/70; PULSE 104; RESP 20; TEMP 99.2
== END 2024-02-06 12:00 | disposition home or self-care (01) ==
LOC: JONCCHEMO 11:10 → J7W 11:11 → JONCCHEMO 12:00
PROVIDERS: ATTEND Internal Medicine Hematology & Oncology
PROC: 3E02305 Introduction of Other Antineoplastic into Muscle, Percutaneous Approach (ICD-10-PCS; principal; 2024-02-06)
PROC: 3E013GC Introduction of Other Therapeutic Substance into Subcutaneous Tissue, Percutaneous Approach (ICD-10-PCS; 2024-02-06)
DX: Z51.11 Encounter for antineoplastic chemotherapy (principal); C50.921 Malignant neoplasm of unspecified site of right male breast
CPT/HCPCS: 96372; 96402; J0897; J9395

== ENCOUNTER 2024-03-05 10:52 | Day surgery (SDC) | payer OTHER ==
[2024-03-05] MEDS: FULVESTRANT 250 MG/5 ML SYRINGE IM ONE (11:01)
[2024-03-05] MEDS: DENOSUMAB 120 MG/1.7 ML VIAL SQ ONE (11:02)
[2024-03-05 11:18] VITALS: BP 100/58; PULSE 72; RESP 20; TEMP 98.3
== END 2024-03-05 11:30 | disposition home or self-care (01) ==
LOC: JONCCHEMO 10:52 → J7W 10:53 → JONCCHEMO 11:30
PROVIDERS: ATTEND Internal Medicine Hematology & Oncology
PROC: 3E02305 Introduction of Other Antineoplastic into Muscle, Percutaneous Approach (ICD-10-PCS; principal; 2024-03-05)
PROC: 3E013GC Introduction of Other Therapeutic Substance into Subcutaneous Tissue, Percutaneous Approach (ICD-10-PCS; 2024-03-05)
DX: Z51.11 Encounter for antineoplastic chemotherapy (principal); C50.921 Malignant neoplasm of unspecified site of right male breast
CPT/HCPCS: 96372; 96402; J0897; J9395

== ENCOUNTER 2024-04-02 11:20 | Day surgery (SDC) | payer OTHER ==
[2024-04-02] MEDS: DENOSUMAB 120 MG/1.7 ML VIAL SQ ONE (12:02)
[2024-04-02] MEDS: FULVESTRANT 250 MG/5 ML SYRINGE IM ONE (12:03)
[2024-04-02 14:40] VITALS: BP 126/56; PULSE 68; RESP 20
[2024-04-02 14:51] VITALS: TEMP 68
== END 2024-04-02 12:10 | disposition home or self-care (01) ==
LOC: JONCCHEMO 11:20 → J7W 11:21 → JONCCHEMO 12:10
PROVIDERS: ATTEND Internal Medicine Hematology & Oncology
PROC: 3E02305 Introduction of Other Antineoplastic into Muscle, Percutaneous Approach (ICD-10-PCS; principal; 2024-04-02)
PROC: 3E013GC Introduction of Other Therapeutic Substance into Subcutaneous Tissue, Percutaneous Approach (ICD-10-PCS; 2024-04-02)
DX: Z51.11 Encounter for antineoplastic chemotherapy (principal); C50.921 Malignant neoplasm of unspecified site of right male breast; C79.51 Secondary malignant neoplasm of bone; Z17.0 Estrogen receptor positive status [ER+]
CPT/HCPCS: 96372; 96402; J0897; J9395

== ENCOUNTER 2024-04-30 11:10 | Day surgery (SDC) | payer OTHER ==
[2024-04-30] MEDS: DENOSUMAB 120 MG/1.7 ML VIAL SQ ONE (11:42)
[2024-04-30] MEDS: FULVESTRANT 250 MG/5 ML SYRINGE IM ONE (11:44)
[2024-04-30 14:25] VITALS: BP 113/69; PULSE 74; RESP 20; TEMP 98.2
== END 2024-04-30 12:15 | disposition home or self-care (01) ==
LOC: JONCCHEMO 11:10 → J7W 11:10 → JONCCHEMO 12:15
PROVIDERS: ATTEND Internal Medicine Hematology & Oncology
PROC: 3E01305 Introduction of Other Antineoplastic into Subcutaneous Tissue, Percutaneous Approach (ICD-10-PCS; principal; 2024-04-30)
PROC: 3E013GC Introduction of Other Therapeutic Substance into Subcutaneous Tissue, Percutaneous Approach (ICD-10-PCS; 2024-04-30)
DX: Z51.11 Encounter for antineoplastic chemotherapy (principal); C50.921 Malignant neoplasm of unspecified site of right male breast; C79.51 Secondary malignant neoplasm of bone; Z17.0 Estrogen receptor positive status [ER+]
CPT/HCPCS: 96372; 96402; J0897; J9395

== ENCOUNTER 2024-05-28 10:37 | Day surgery (SDC) | payer OTHER ==
[2024-05-28] MEDS: FULVESTRANT 250 MG/5 ML SYRINGE IM ONE (10:56)
[2024-05-28] MEDS: DENOSUMAB 120 MG/1.7 ML VIAL SQ ONE (10:57)
[2024-05-28 10:58] VITALS: BP 119/59; PULSE 57; RESP 20; TEMP 98.5
[2024-05-28 11:25] LABS: BASO % 0.7 % (0-2.0); EOS % 1.1 % (0-4.5); HEMATOCRIT 35.6 % (35.4-49); HEMOGLOBIN 12.2 GM/dL (11.7-16.9); LYMPH % 25.7 % (8-40); MCH 31.3 pg (25.7-33.7); MCHC 34.3 g/dl (32.0-35.9); MEAN CELL VOLUME 91.2 fl (80-96); MONO % 4.5 % (3.8-10.2); PLATELET COUNT 160 10^3/uL (134-434); RBC 3.91 M/mm3 (4.00-5.60); RDW 17.2 % (11.9-15.9); WHITE BLOOD COUNT 4.7 K/mm3 (4.0-10.0)
[2024-05-28 11:30] LABS: CALCIUM 9.7 mg/dL (8.5-10.1)
[2024-05-28 11:31] LABS: ALBUMIN 3.5 g/dl (3.4-5.0); BLOOD UREA NITROGEN 26.7 mg/dL (7-18); MAGNESIUM 1.9 mg/dL (1.8-2.4)
[2024-05-28 11:33] LABS: URIC ACID 8.3 mg/dL (2.6-7.2)
[2024-05-28 11:34] LABS: CREATININE 1.3 mg/dL (0.55-1.3)
[2024-05-28 11:35] LABS: BILIRUBIN,TOTAL 0.9 mg/dL (0.2-1); TOT PROT 7.3 g/dl (6.4-8.2)
== END 2024-05-28 11:25 | disposition home or self-care (01) ==
LOC: JONCCHEMO 10:37 → J7W 10:40 → JONCCHEMO 11:25
PROVIDERS: ATTEND Internal Medicine Hematology & Oncology
PROC: 3E01305 Introduction of Other Antineoplastic into Subcutaneous Tissue, Percutaneous Approach (ICD-10-PCS; principal; 2024-05-28)
PROC: 3E013GC Introduction of Other Therapeutic Substance into Subcutaneous Tissue, Percutaneous Approach (ICD-10-PCS; 2024-05-28)
DX: Z51.11 Encounter for antineoplastic chemotherapy (principal); C50.929 Malignant neoplasm of unspecified site of unspecified male breast; C78.5 Secondary malignant neoplasm of large intestine and rectum; C79.51 Secondary malignant neoplasm of bone
CPT/HCPCS: 36415; 80053; 82306; 82378; 83735; 84550; 85025; 86300; 96372; 96402; J0897; J9395

== ENCOUNTER 2024-06-25 10:19 | Day surgery (SDC) | payer OTHER ==
[2024-06-25] MEDS: DENOSUMAB 120 MG/1.7 ML VIAL SQ ONE (10:55)
[2024-06-25] MEDS: FULVESTRANT 250 MG/5 ML SYRINGE IM ONE (10:55)
[2024-06-25 10:59] LABS: BASO % 0.5 % (0-2.0); EOS % 0.8 % (0-4.5); HEMATOCRIT 37.6 % (35.4-49); HEMOGLOBIN 12.7 GM/dL (11.7-16.9); LYMPH % 22.1 % (8-40); MCH 30.2 pg (25.7-33.7); MCHC 33.7 g/dl (32.0-35.9); MEAN CELL VOLUME 89.6 fl (80-96); MEAN PLT VOLUME 8.5 fl (7.5-11.1); MONO % 3.9 % (3.8-10.2); NEUT % 72.7 % (42.8-82.8); PLATELET COUNT 149 10^3/uL (134-434); RDW 16.7 % (11.9-15.9); WHITE BLOOD COUNT 5.1 K/mm3 (4.0-10.0)
[2024-06-25 11:16] LABS: CHLORIDE 99 mmol/L (98-107); POTASSIUM 3.6 mmol/L (3.5-5.1); SODIUM 136 mmol/L (136-145)
[2024-06-25 11:19] LABS: ALBUMIN 3.7 g/dl (3.4-5.0); ANION GAP 10 mmol/L (4-13); CALCIUM 9.3 mg/dL (8.5-10.1); CO2 28 mmol/L (21-32); GLUCOSE,RANDOM 204 mg/dL (74-106); MAGNESIUM 1.9 mg/dL (1.8-2.4)
[2024-06-25 11:21] LABS: BLOOD UREA NITROGEN 25.7 mg/dL (7-18)
[2024-06-25 11:23] LABS: CREATININE 1.5 mg/dL (0.55-1.3); PHOSPHOROUS 2.7 mg/dL (2.5-4.9); SGOT/AST 28 U/L (15-37); SGPT/ALT 43 U/L (13-61)
[2024-06-25 11:25] LABS: ALK PHOS 99 U/L (45-117); BILIRUBIN,TOTAL 1.3 mg/dL (0.2-1); TOT PROT 7.2 g/dl (6.4-8.2)
[2024-06-25 16:53] VITALS: BP 100/70; PULSE 90; RESP 18; TEMP 98.9
== END 2024-06-25 11:30 | disposition home or self-care (01) ==
LOC: JONCCHEMO 10:19 → J7W 10:22 → JONCCHEMO 11:30
PROVIDERS: ATTEND Internal Medicine Hematology & Oncology
PROC: 3E02305 Introduction of Other Antineoplastic into Muscle, Percutaneous Approach (ICD-10-PCS; principal; 2024-06-25)
PROC: 3E013GC Introduction of Other Therapeutic Substance into Subcutaneous Tissue, Percutaneous Approach (ICD-10-PCS; 2024-06-25)
DX: Z51.11 Encounter for antineoplastic chemotherapy (principal); C50.929 Malignant neoplasm of unspecified site of unspecified male breast; C78.5 Secondary malignant neoplasm of large intestine and rectum; C79.51 Secondary malignant neoplasm of bone
CPT/HCPCS: 36415; 80053; 82306; 82378; 83735; 84100; 85025; 86300; 96372; 96402; J0897; J9395

== ENCOUNTER 2024-07-23 11:04 | Day surgery (SDC) | payer OTHER ==
[2024-07-23] MEDS: FULVESTRANT 250 MG/5 ML SYRINGE IM ONE (11:17)
[2024-07-23] MEDS: DENOSUMAB 120 MG/1.7 ML VIAL SQ ONE (11:18)
[2024-07-23 17:37] VITALS: BP 123/64; PULSE 78; RESP 20; TEMP 98
== END 2024-07-23 11:30 | disposition home or self-care (01) ==
LOC: JONCCHEMO 11:04 → J7W 11:05 → JONCCHEMO 11:30
PROVIDERS: ATTEND Internal Medicine Hematology & Oncology
PROC: 3E02305 Introduction of Other Antineoplastic into Muscle, Percutaneous Approach (ICD-10-PCS; principal; 2024-07-23)
PROC: 3E013GC Introduction of Other Therapeutic Substance into Subcutaneous Tissue, Percutaneous Approach (ICD-10-PCS; 2024-07-23)
DX: Z51.11 Encounter for antineoplastic chemotherapy (principal); C50 Malignant neoplasm of breast; C78.5 Secondary malignant neoplasm of large intestine and rectum; C79.51 Secondary malignant neoplasm of bone
CPT/HCPCS: 96372; 96402; J0897; J9395

== ENCOUNTER 2024-08-20 11:32 | Day surgery (SDC) | payer OTHER ==
[2024-08-20] MEDS: FULVESTRANT 250 MG/5 ML SYRINGE IM ONE (11:42)
[2024-08-20] MEDS: DENOSUMAB 120 MG/1.7 ML VIAL SQ ONE (11:44)
[2024-08-20 16:55] VITALS: BP 122/76; PULSE 79; RESP 20; TEMP 98.2
== END 2024-08-20 12:00 | disposition home or self-care (01) ==
LOC: J7W 11:32 → JONCCHEMO 11:32
PROVIDERS: ATTEND Internal Medicine Hematology & Oncology
DX: Z51.11 Encounter for antineoplastic chemotherapy (principal); C50.929 Malignant neoplasm of unspecified site of unspecified male breast; C79.51 Secondary malignant neoplasm of bone
CPT/HCPCS: 96372; 96402; J0897; J9395

== ENCOUNTER 2024-09-18 09:34 | Day surgery (SDC) | payer OTHER ==
[~2024-09-18 09:34] MED LIST changes: +DENOSUMAB 120 MG/1.7 ML VIAL SQ ONE
[2024-09-18] MEDS: DENOSUMAB 120 MG/1.7 ML VIAL SQ ONE (09:42)
[2024-09-18] MEDS: FULVESTRANT 250 MG/5 ML SYRINGE IM ONE (09:42)
[2024-09-18 10:06] VITALS: BP 127/57; PULSE 68; RESP 20; TEMP 98.2
== END 2024-09-18 09:55 | disposition home or self-care (01) ==
LOC: JONCCHEMO 09:34 → J7W 09:35 → JONCCHEMO 09:55
PROVIDERS: ATTEND Internal Medicine Hematology & Oncology
PROC: 3E01305 Introduction of Other Antineoplastic into Subcutaneous Tissue, Percutaneous Approach (ICD-10-PCS; principal; 2024-09-18)
PROC: 3E013GC Introduction of Other Therapeutic Substance into Subcutaneous Tissue, Percutaneous Approach (ICD-10-PCS; 2024-09-18)
DX: Z51.11 Encounter for antineoplastic chemotherapy (principal); C50.929 Malignant neoplasm of unspecified site of unspecified male breast; C79.51 Secondary malignant neoplasm of bone
CPT/HCPCS: 96372; 96402; J0897; J9395

== ENCOUNTER 2024-10-15 11:10 | Day surgery (SDC) | payer OTHER ==
[2024-10-15] MEDS: DENOSUMAB 120 MG/1.7 ML VIAL SQ ONE (11:02)
[2024-10-15] MEDS: FULVESTRANT 250 MG/5 ML SYRINGE IM ONE (11:03)
[2024-10-15 17:54] VITALS: BP 112/63; PULSE 84; RESP 20; TEMP 98.2
== END 2024-10-15 11:25 | disposition home or self-care (01) ==
LOC: JONCCHEMO 11:10
PROVIDERS: ATTEND Internal Medicine Hematology & Oncology
PROC: 3E02305 Introduction of Other Antineoplastic into Muscle, Percutaneous Approach (ICD-10-PCS; principal; 2024-10-15)
PROC: 3E013GC Introduction of Other Therapeutic Substance into Subcutaneous Tissue, Percutaneous Approach (ICD-10-PCS; 2024-10-15)
DX: Z51.11 Encounter for antineoplastic chemotherapy (principal); C50.929 Malignant neoplasm of unspecified site of unspecified male breast; C18.7 Malignant neoplasm of sigmoid colon
CPT/HCPCS: 96372; 96402; J0897; J9395

== ENCOUNTER 2024-12-25 10:59 | Day surgery (SDC) | payer OTHER ==
[2024-12-25] MEDS: FULVESTRANT 250 MG/5 ML SYRINGE IM ONE (11:33)
[2024-12-25] MEDS: DENOSUMAB 120 MG/1.7 ML VIAL SQ ONE (11:33)
[2024-12-25 11:49] LABS: BASO % 0.1 % (0-2.0); EOS % 0.4 % (0-4.5); HEMATOCRIT 38.9 % (35.4-49); HEMOGLOBIN 12.5 GM/dL (11.7-16.9); LYMPH % 20.8 % (8-40); MCH 28.1 pg (25.7-33.7); MCHC 32.1 g/dl (32.0-35.9); MEAN CELL VOLUME 87.4 fl (80-96); MEAN PLT VOLUME 7.9 fl (7.5-11.1); MONO % 5.2 % (3.8-10.2); NEUT % 73.5 % (42.8-82.8); PLATELET COUNT 163 10^3/uL (134-434); RBC 4.45 M/mm3 (4.00-5.60); RDW 16.8 % (11.9-15.9); WHITE BLOOD COUNT 5.6 K/mm3 (4.0-10.0)
[2024-12-25 12:20] LABS: CHLORIDE 100 mmol/L (98-107); POTASSIUM 3.6 mmol/L (3.5-5.1); SODIUM 136 mmol/L (136-145)
[2024-12-25 12:22] LABS: ALBUMIN 3.6 g/dl (3.4-5.0); ANION GAP 7 mmol/L (4-13); BLOOD UREA NITROGEN 26.4 mg/dL (7-18); CALCIUM 9.5 mg/dL (8.5-10.1); CO2 29 mmol/L (21-32); GLUCOSE,RANDOM 121 mg/dL (74-106)
[2024-12-25 12:25] LABS: CREATININE 1.4 mg/dL (0.55-1.3); SGOT/AST 44 U/L (15-37); SGPT/ALT 54 U/L (13-61); URIC ACID 5.8 mg/dL (2.6-7.2)
[2024-12-25 12:27] LABS: BILIRUBIN,TOTAL 1.4 mg/dL (0.2-1); TOT PROT 7.7 g/dl (6.4-8.2)
[2024-12-25 12:28] LABS: ALK PHOS 106 U/L (45-117)
[2024-12-25 16:29] VITALS: BP 164/91; PULSE 63; RESP 20; TEMP 98.7
== END 2024-12-25 11:50 | disposition home or self-care (01) ==
LOC: JONCCHEMO 10:59
PROVIDERS: ATTEND Internal Medicine Hematology & Oncology
PROC: 3E02305 Introduction of Other Antineoplastic into Muscle, Percutaneous Approach (ICD-10-PCS; principal; 2024-12-25)
PROC: 3E013GC Introduction of Other Therapeutic Substance into Subcutaneous Tissue, Percutaneous Approach (ICD-10-PCS; 2024-12-25)
DX: Z51.11 Encounter for antineoplastic chemotherapy (principal); C50.921 Malignant neoplasm of unspecified site of right male breast
CPT/HCPCS: 36415; 80053; 82306; 82378; 83735; 84550; 85025; 86300; 96372; 96402; J0897; J9395

== ENCOUNTER 2025-01-22 10:32 | Day surgery (SDC) | payer OTHER ==
[2025-01-22] MEDS: DENOSUMAB 120 MG/1.7 ML VIAL SQ ONE (10:59)
[2025-01-22] MEDS: FULVESTRANT 250 MG/5 ML SYRINGE IM ONE (11:00)
[2025-01-22 11:19] LABS: BASOPHILS # 0.01 x10^3/uL (0.01-0.08); EOSINOPHIL % 0.3 % (0.8-7.0); EOSINOPHILS # 0.02 x10^3/uL (0.04-0.54); HEMATOCRIT 38.2 % (40.1-51.0); HEMOGLOBIN 12.1 g/dL (13.7-17.5); MCHC 31.7 g/dl (32.3-36.5); MEAN CELL VOLUME 88.6 fl (79.0-92.2); MEAN PLT VOLUME 9.7 fl (9.4-12.4); MONOCYTE # 0.39 x10^3/uL (0.30-0.82); MONOCYTE % 6.1 % (5.3-12.2); PLATELET COUNT # 164 x10^3/uL (163-337); RDW 16.6 % (12.2-16.6)
[2025-01-22 11:37] LABS: CHLORIDE 96 mmol/L (98-107); POTASSIUM 3.4 mmol/L (3.5-5.1); SODIUM 136 mmol/L (136-145)
[2025-01-22 11:39] LABS: ALBUMIN 3.6 g/dl (3.4-5.0); ANION GAP 9 mmol/L (4-13); BLOOD UREA NITROGEN 34.2 mg/dL (7-18); CALCIUM 9.7 mg/dL (8.5-10.1); CO2 31 mmol/L (21-32); MAGNESIUM 2.1 mg/dL (1.8-2.4)
[2025-01-22 11:40] LABS: GLUCOSE,RANDOM 190 mg/dL (74-106)
[2025-01-22 11:42] LABS: CREATININE 1.4 mg/dL (0.55-1.3); SGOT/AST 35 U/L (15-37); SGPT/ALT 38 U/L (13-61); URIC ACID 5.8 mg/dL (2.6-7.2)
[2025-01-22 11:44] LABS: BILIRUBIN,TOTAL 1.2 mg/dL (0.2-1); TOT PROT 7.5 g/dl (6.4-8.2)
[2025-01-22 11:45] LABS: ALK PHOS 97 U/L (45-117)
[2025-01-22 17:36] VITALS: BP 115/65; PULSE 89; RESP 18; TEMP 98
== END 2025-01-22 11:30 | disposition home or self-care (01) ==
LOC: JONCCHEMO 10:32 → J7W 10:34 → JONCCHEMO 11:30
PROVIDERS: ATTEND Internal Medicine Hematology & Oncology
PROC: 3E01305 Introduction of Other Antineoplastic into Subcutaneous Tissue, Percutaneous Approach (ICD-10-PCS; principal; 2025-01-22)
PROC: 3E013GC Introduction of Other Therapeutic Substance into Subcutaneous Tissue, Percutaneous Approach (ICD-10-PCS; 2025-01-22)
DX: Z51.11 Encounter for antineoplastic chemotherapy (principal); C50.929 Malignant neoplasm of unspecified site of unspecified male breast; Z17.0 Estrogen receptor positive status [ER+]
CPT/HCPCS: 36415; 80053; 82306; 82378; 83735; 84550; 85025; 86300; 96372; 96402; J0897; J9395

== ENCOUNTER 2025-04-22 10:36 | Day surgery (SDC) | payer OTHER ==
[2025-04-22] MEDS: DENOSUMAB 120 MG/1.7 ML VIAL SQ ONE (10:46)
[2025-04-22] MEDS: FULVESTRANT 250 MG/5 ML SYRINGE IM ONE (10:46)
[2025-04-22 18:34] VITALS: BP 112/67; PULSE 80; RESP 20; TEMP 98.4
== END 2025-04-22 11:00 | disposition home or self-care (01) ==
LOC: JONCCHEMO 10:36 → J7W 10:37 → JONCCHEMO 11:00
PROVIDERS: ATTEND Internal Medicine Hematology & Oncology
PROC: 3E01305 Introduction of Other Antineoplastic into Subcutaneous Tissue, Percutaneous Approach (ICD-10-PCS; principal; 2025-04-22)
PROC: 3E013GC Introduction of Other Therapeutic Substance into Subcutaneous Tissue, Percutaneous Approach (ICD-10-PCS; 2025-04-22)
DX: Z51.11 Encounter for antineoplastic chemotherapy (principal); C50.929 Malignant neoplasm of unspecified site of unspecified male breast; Z17.0 Estrogen receptor positive status [ER+]
CPT/HCPCS: J0897; J9395

== ENCOUNTER 2025-07-22 12:13 | Day surgery (SDC) | payer OTHER ==
[2025-07-22] MEDS: FULVESTRANT 250 MG/5 ML SYRINGE IM ONE (12:10)
[2025-07-22] MEDS: DENOSUMAB 120 MG/1.7 ML VIAL SQ ONE (12:11)
[2025-07-22] MEDS: IRON SUCROSE INJECTION 200 MG in SODIUM CHLORIDE 100 ML IVPB ONE (12:12)
[2025-07-22 12:28] VITALS: RESP 20; TEMP 98.2
[2025-07-22 15:00] VITALS: BP 139/66; PULSE 70
== END 2025-07-22 12:40 | disposition home or self-care (01) ==
LOC: JONCCHEMO 12:13
PROVIDERS: ATTEND Internal Medicine Hematology & Oncology
PROC: 3E033GC Introduction of Other Therapeutic Substance into Peripheral Vein, Percutaneous Approach (ICD-10-PCS; principal; 2025-07-22)
PROC: 3E01305 Introduction of Other Antineoplastic into Subcutaneous Tissue, Percutaneous Approach (ICD-10-PCS; 2025-07-22)
PROC: 3E013GC Introduction of Other Therapeutic Substance into Subcutaneous Tissue, Percutaneous Approach (ICD-10-PCS; 2025-07-22)
DX: Z51.11 Encounter for antineoplastic chemotherapy (principal); C50.921 Malignant neoplasm of unspecified site of right male breast; C79.51 Secondary malignant neoplasm of bone; E61.1 Iron deficiency
CPT/HCPCS: 96365; 96372; 96401; J0897; J1756; J9395

== ENCOUNTER 2025-08-20 10:52 | Day surgery (SDC) | payer OTHER ==
[2025-08-20] MEDS: IRON SUCROSE INJECTION 300 MG in SODIUM CHLORIDE 250 ML IVPB ONE (11:10)
[2025-08-20] MEDS: FULVESTRANT 250 MG/5 ML SYRINGE IM ONE (12:43)
[2025-08-20] MEDS: DENOSUMAB 120 MG/1.7 ML VIAL SQ ONE (12:43)
[2025-08-20 14:51] VITALS: BP 132/64; PULSE 55; RESP 20; TEMP 97.5
== END 2025-08-20 14:00 | disposition home or self-care (01) ==
LOC: JONCCHEMO 10:52 → J7W 10:54 → JONCCHEMO 14:00
PROVIDERS: ATTEND Internal Medicine Hematology & Oncology
PROC: 3E033GC Introduction of Other Therapeutic Substance into Peripheral Vein, Percutaneous Approach (ICD-10-PCS; principal; 2025-08-20)
PROC: 3E01305 Introduction of Other Antineoplastic into Subcutaneous Tissue, Percutaneous Approach (ICD-10-PCS; 2025-08-20)
PROC: 3E013GC Introduction of Other Therapeutic Substance into Subcutaneous Tissue, Percutaneous Approach (ICD-10-PCS; 2025-08-20)
DX: Z51.11 Encounter for antineoplastic chemotherapy (principal); C50.921 Malignant neoplasm of unspecified site of right male breast; C79.51 Secondary malignant neoplasm of bone; E61.1 Iron deficiency
CPT/HCPCS: 96365; 96372; 96401; J0897; J1756; J9395